=== PATIENT | female | born 1980 | race Caucasian/White ===

== ENCOUNTER 2022-11-05 14:07 | Outpatient (OUT) | payer BC, SELFPAY ==
--- NOTE | 2022-11-05 14:09 | US_ITS ---
The [address] [address] Patient Name: KATHRYN SEQUEIRA MRN: [id number] date: 1980 Sex: F Assigned Patient Location: Current Patient Location: US Accession/Order Number: [id number] Exam Date: 11/05/2022 14:09 Report Date: 11/05/2022 15:14 At the request of: RADHA MAYS Procedure: US pelvis w/ transvaginal EXAM: US pelvis w/ transvaginal HISTORY: PELVIC PAIN COMPARISON: None. TECHNIQUE: Realtime transabdominal and transvaginal imaging of the pelvis. Findings: The uterus measures 8.8 x 3.6 x 5.1 cm and is anteflexed. The parenchyma is heterogeneous. Within the posterior fundus there is a 2.1 x 1.6 x 1.8 cm intramural lesion likely representing a fibroid. The endometrium is 0.3 cm thick. No fluid within the endometrial canal. A nabothian cyst is identified. The right and left ovaries measure 3.5 x 1.7 x 3.5 and 3.6 x 2.2 x 2.8 cm. Within the left ovary there is a complex cystic lesion likely relating to an involuting ovarian cyst. Blood flow is identified to the bilateral ovaries. No adnexal mass or free pelvic fluid. IMPRESSION: 1. Fibroid uterus. 2. Probable involuting left ovarian cyst. Electronically authenticated by: ABILIO WILHELM Date: 11/05/2022 15:14
== END 2022-11-05 14:08 | disposition home or self-care (01) ==
PROVIDERS: PCP Family Medicine; Visit Provider Obstetrics & Gynecology
DX: R10.2 Pelvic and perineal pain (principal); N80.9 Endometriosis, unspecified
CPT/HCPCS: 76830; 76856

== ENCOUNTER 2022-12-04 18:51 | Outpatient (REF) | payer BC, SELFPAY ==
[2022-12-09 14:08] LABS: Age Gdln ACOG Testing Note (.); HPV Aptima Negative (Negative); IGP, Aptima HPV, rfx 16/18,45 Note (.)
== END 2022-12-04 18:52 | disposition home or self-care (01) ==
LOC: LAB 18:51
PROVIDERS: PCP Family Medicine; Visit Provider Obstetrics & Gynecology
DX: Z01.419 Encounter for gynecological examination (general) (routine) without abnormal findings (principal)
CPT/HCPCS: 87624; G0145

== ENCOUNTER 2022-12-24 08:05 | Outpatient (OUT) | payer BC, SELFPAY ==
--- NOTE | 2022-12-24 08:57 | P.GSHP_ITS ---
History of Present Illness History of Present Illness Chief complaint: pelvic pain Narrative: Patient presents for preadmission testing. Please see HPI from Dr. Lima dated 12/04/2022. Review of Systems ROS Narrative REVIEW OF SYSTEMS: Negative except as stated in HPI, ten or more systems reviewed. Constitutional: No fever , chills, weakness ENT: No sore throat or epistaxis Cardiovascular: No edema, chest pain, palpitations, or activity intolerance Respiratory: No shortness of breath, cough, or wheezing Musculoskeletal: No joint pain or swelling Genitourinary: No dysuria or hematuria Neurological: No numbness, tingling, weakness, or headache Psychiatric: No mood changes PFSH PFS Medical History (Updated 12/24/22 @ 08:33 by Alma Estrada NP) (12/21/22) Surgical History (Updated 12/24/22 @ 08:31 by Alma Estrada NP) Family History (Updated 12/24/22 @ 08:31 by Alma Estrada NP) Other Family history of DVT Family history of breast cancer Family history of diabetes mellitus Family history of heart disease Family history of hypertension Family history of myocardial infarction Family history of pulmonary embolism Family history of stroke Social History (Updated 12/24/22 @ 08:25 by Alma Estrada NP) Within the past year, how often did you have a drink containing alcohol: never Score interpretation: A score less than 3 is consistent with normal alcohol consumption. Smoking status: Current every day smoker What tobacco products do you use: cigarettes Pack-years instructions: Please document either packs per day or cigarettes per day in order for pack years to calculate correctly. If using both packs per day and cigarettes per day, please make sure that they denote the same thing. If they differ, pack- years will calculate based on packs per day. 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 Highest level of school completed/degree received: high school graduate Meds Home Medications and Allergies Home Medications Medication Instructions Recorded Confirmed Type cetirizine 10 mg tablet (Zyrtec) 10 mg PO DAILY PRN allergy symptoms 12/24/22 12/24/22 History venlafaxine 150 mg 150 mg PO QPM 12/24/22 12/24/22 History capsule,extended release 24 hr Allergies Allergy/AdvReac Type Severity Reaction Status Date / Time adhesive tape Allergy Rash Verified 12/24/22 08:21 amoxicillin Allergy Rash Verified 12/24/22 08:21 Penicillins Allergy Rash Verified 12/24/22 08:21 Exam Narrative Exam Narrative: Constitutional: Awake, alert, comfortable, well-appearing, nontoxic, interactive, vital signs as charted Head: Normocephalic, atraumatic Neck: Supple, normal appearance, normal range of motion, no meningeal signs, no lymphadenopathy Respiratory: No respiratory distress, breath sounds clear Cardiovascular: Regular rate and rhythm, strong and regular heart tones Abdomen: Nontender, normal bowel sounds, soft, no CVA tenderness Musculoskeletal: Normal gait, no swelling or edema Skin: No rashes or induration, no lesions, only visible skin inspected Neuro: No neurological deficits, normal sensation Psychiatric: Oriented ?3, normal affect Assessment and Plan Assessment and Plan (1) Dyspareunia: (2) Endometriosis: (3) Pelvic pain: Plan Diagnostic laparoscopy, possible BYRON, possible FOE, possible bilateral salpingo- oophorectomy scheduled with Dr. Lima 01/03/2023.
[2022-12-24 09:18] LABS: Anion Gap 11.8; BUN Creatinine Ratio 12.4; Calcium 8.7 mg/dL (8.5-10.1); Carbon Dioxide 28.5 mmol/L (21.0-32.0); Chloride 106 mmol/L (98-107); Estimated GFR (African America >60 (>=60); Estimated GFR (Non-African Ame >60 (>=60); Glucose 98 mg/dL (74-106); Potassium 3.3 mmol/L (3.5-5.1); Sodium 143 mmol/L (136-145)
== END 2022-12-24 08:06 | disposition home or self-care (01) ==
PROVIDERS: PCP Family Medicine; Visit Provider Obstetrics & Gynecology
DX: Z01.812 Encounter for preprocedural laboratory examination (principal); R10.2 Pelvic and perineal pain; N80.9 Endometriosis, unspecified; N94.10 Unspecified dyspareunia; I10 Essential (primary) hypertension
CPT/HCPCS: 36415; 80048; G0463

== ENCOUNTER 2023-01-03 06:20 | Day surgery (SDC) | payer BC, SELFPAY ==
[2022-12-24 08:44] VITALS: BP 157/91; PULSE 77; RESP 18; TEMP 36.2; O2SAT 98; BMI 31.2
[2023-01-03] VITALS (14 sets, daily range): BP systolic 136–201; BP diastolic 62–104; PULSE 66–88; RESP 7–23; TEMP 36.1–36.6; O2SAT 93–97; BMI 31.2
[2023-01-03 06:29] LABS: Basophils Absolute Auto 0.1 10^3/uL (0.0-0.1); Basophils Percent Auto 0.8 % (0.2-2.0); Eosinophils Absolute Auto 0.4 10^3/uL (0.0-0.7); Eosinophils Percent Auto 4.6 % (0.9-7.0); Hematocrit 39.4 % (36.0-48.0); Hemoglobin 13.2 g/dL (12.0-16.0); Immature Granulocytes Abs Auto 0.02 10^3/uL (0.00-0.03); Immature Granulocytes Pct Auto 0.3 % (0.0-0.5); Lymphocytes Percent Auto 38.7 % (20.5-60.0); Mean Corpuscular HGB Conc 33.5 g/dL (29.9-35.2); Mean Corpuscular Hemoglobin 27.6 pg (26.7-34.0); Mean Corpuscular Volume 82.4 fL (81.0-99.0); Mean Platelet Volume 9.4 fL (9.5-13.5); Monocytes Absolute Auto 0.5 10^3/uL (0.3-0.8); Monocytes Percent Auto 6.1 % (1.7-12.0); Neutrophils Absolute Auto 3.9 10^3/uL (1.4-6.5); Neutrophils Percent Auto 49.5 % (43.0-75.0); Platelet Count 343 10^3/uL (150-450); Red Blood Count 4.78 10^6/uL (4.20-5.40); Red Cell Distribution Width 13.1 % (11.0-15.0); White Blood Count 7.9 10^3/uL (4.0-11.0)
[2023-01-03 06:52] LABS: HCG Quantitative <1 mIU/mL
[2023-01-03] MEDS: LACTATED RINGER'S SOLUTION 1,000 ML 50 ML IV (06:52)
[2023-01-03] MEDS: 0.9 % SODIUM CHLORIDE 1,000 ML 125 ML IV (08:18)
[2023-01-03] MEDS: MEPERIDINE HCL/PF 25 MG/ML VIAL IVP (08:44)
--- NOTE | 2023-01-03 08:48 | P.ON_ITS ---
Brief Operative Note Date of procedure: 01/03/23 Pre-op diagnosis: pelvic pain, ho endometriosis Post-op diagnosis: same as pre-op Procedure: NAME OF PROCEDURE: [diagnostic laparoscopy with lt ovarian cystotomy ] large fundal uterine fibroid, endometriosis posterior culdesac, omental adhesions to the anterior portion of uterus PROCEDURE: The patient was taken back to the Operating Room where she was placed in dorsal lithotomy position after given general anesthesia. The patient was prepped and draped in normal sterile fashion. A sponge stick was placed into the patient's vagina. Attention was turned to the patient's abdomen, where a small umbilical incision was made. The fascia was tented using Reginald clamps and the fascia was entered sharply. Confirmation of intraabdominal placement of the 10 mm port was confirmed under direct visualization using a laparoscope. The patient's abdomen was then insufflated using CO2 gas with approximately 4 liters. A second port was placed left laterally, this was done under direct visualization with a 5 mm port. Survey of the patient's abdomen demonstrated normal liver and gallbladder. Survey of the patient's pelvic anatomy demonstrated normal appearing rt ovary and tubes as well as normal appearing uterus except for large fundal uterine fibroid. posterior culdesac endometrial implants could be noted, no evidence of any pelvic disease was seen, normal appearing pelvic cavity. All instruments were removed from the patient's abdomen. The patient's abdomen was deinsufflated of CO2 gas. The patient tolerated the procedure well. Sponge stick was removed from the patient's vagina. The patient's infraumbilical fascia was closed using #0 Vicryl on a GI needle. The patient's skin was closed laterally and infraumbilically using 4-0 Vicryl. The patient tolerated the procedure well. Sponge, lap and needle counts were correct x 2. The patient was taken to Recovery Room in stable condition. ligasure was used for lysis of omental adhesions from anterior portion of uterus Anesthesia: DARBY Surgeon: Mo Lima Morning Babysitter: Cece Rasheed Estimated blood loss (mL): 5 Pathology: none sent Condition: stable Disposition: PACU
[2023-01-03] MEDS: HYDROMORPHONE HCL 0.5 MG/0.5 ML SYRINGE IV (08:51)
--- NOTE | 2023-01-03 08:58 | PC.NURSE ---
pATIENT CONTINUES TO STATE PAIN IN [place] AT AN 8 PAIN MEDS GIVEN AT THIS TIME
--- NOTE | 2023-01-03 09:02 | PC.NURSE ---
pATIENT GIVEN DOSE DILAUDID AT THIS TIME FOR AN 8 OUT OF 10 PAIN
--- NOTE | 2023-01-03 09:09 | PC.NURSE ---
pATIENT POST PAIN MEDICATION IS SNORING AND ASLEEP VITALS ARE BETTER. ALLOWED PATIENT TO SLEEP.
--- NOTE | 2023-01-03 09:32 | PC.NURSE ---
PATIENT EATING ICECREAM AND DRINKING FLUIDS
== END 2023-01-03 09:51 | disposition home or self-care (01) ==
PROVIDERS: PCP Family Medicine; Visit Provider Obstetrics & Gynecology
PROC: (CPT 49320; principal; 2023-01-03 07:30)
DX: R10.2 Pelvic and perineal pain (principal); N94.10 Unspecified dyspareunia; I10 Essential (primary) hypertension; F17.210 Nicotine dependence, cigarettes, uncomplicated; K21.9 Gastro-esophageal reflux disease without esophagitis; Z90.49 Acquired absence of other specified parts of digestive tract; Z98.51 Tubal ligation status; N80.329 Endometriosis of the posterior cul-de-sac, unspecified depth; D25.9 Leiomyoma of uterus, unspecified; N73.6 Female pelvic peritoneal adhesions (postinfective)
CPT/HCPCS: 49320; 36415; 84702; 85025; J1170; J2704

== ENCOUNTER 2023-02-19 08:05 | Outpatient (OUT) | payer BC, SELFPAY ==
[2023-02-19 08:46] LABS: Basophils Absolute Auto 0.1 10^3/uL (0.0-0.1); Basophils Percent Auto 0.7 % (0.2-2.0); Eosinophils Absolute Auto 0.5 10^3/uL (0.0-0.7); Eosinophils Percent Auto 4.5 % (0.9-7.0); Hematocrit 33.1 % (36.0-48.0); Immature Granulocytes Abs Auto 0.04 10^3/uL (0.00-0.03); Immature Granulocytes Pct Auto 0.4 % (0.0-0.5); Lymphocytes Absolute Auto 3.8 10^3/uL (1.2-3.8); Lymphocytes Percent Auto 35.1 % (20.5-60.0); Mean Corpuscular HGB Conc 33.2 g/dL (29.9-35.2); Mean Corpuscular Hemoglobin 27.6 pg (26.7-34.0); Mean Corpuscular Volume 83.2 fL (81.0-99.0); Mean Platelet Volume 9.4 fL (9.5-13.5); Monocytes Absolute Auto 0.7 10^3/uL (0.3-0.8); Monocytes Percent Auto 6.6 % (1.7-12.0); Neutrophils Absolute Auto 5.8 10^3/uL (1.4-6.5); Neutrophils Percent Auto 52.7 % (43.0-75.0); Platelet Count 384 10^3/uL (150-450); Red Blood Count 3.98 10^6/uL (4.20-5.40); White Blood Count 10.9 10^3/uL (4.0-11.0)
[2023-02-19 09:01] LABS: INR 0.93; Partial Thromboplastin Time 24.3 sec (22.3-36.2); Prothrombin Time 9.9 sec (9.0-11.6)
[2023-02-19 09:29] LABS: Anion Gap 13.7; BUN Creatinine Ratio 11.9; Calcium 8.9 mg/dL (8.5-10.1); Chloride 105 mmol/L (98-107); Estimated GFR (African America >60 (>=60); Estimated GFR (Non-African Ame >60 (>=60); Glucose 86 mg/dL (74-106); Sodium 144 mmol/L (136-145)
[2023-02-19 09:32] LABS: Alanine Aminotransferase 20 U/L (14-59); Albumin Globulin Ratio 1.1; Albumin Level 3.3 g/dL (3.4-5.0); Alkaline Phosphatase 68 U/L (46-116); Aspartate Amino Transferase 14 U/L (15-37); Bilirubin Direct <0.1 mg/dL (0.0-0.2); Bilirubin Total 0.2 mg/dL (0.2-1.0); Globulin 2.9 g/dL; Total Protein 6.2 g/dL (6.4-8.2)
[2023-02-19 09:34] LABS: Potassium 2.7 mmol/L (3.5-5.1)
== END 2023-02-19 08:06 | disposition home or self-care (01) ==
LOC: PST 08:06
PROVIDERS: PCP Family Medicine; Visit Provider Obstetrics & Gynecology
DX: Z01.812 Encounter for preprocedural laboratory examination (principal); N80.9 Endometriosis, unspecified; D25.9 Leiomyoma of uterus, unspecified; R10.2 Pelvic and perineal pain
CPT/HCPCS: 80048; 80076; 85025; 85610; 85730; 86850; 86900; 86901

== ENCOUNTER 2023-02-22 09:02 | Outpatient (OUT) | payer BC, SELFPAY ==
[2023-02-22 09:45] LABS: Potassium 3.1 mmol/L (3.5-5.1)
== END 2023-02-22 09:03 | disposition home or self-care (01) ==
LOC: LAB 09:04
PROVIDERS: PCP Family Medicine; Visit Provider Obstetrics & Gynecology
DX: E87.6 Hypokalemia (principal)
CPT/HCPCS: 36415; 84132

== ENCOUNTER 2023-02-26 06:20 | Day surgery (SDC) | payer BC, SELFPAY ==
[2023-02-19 08:37] VITALS: BP 180/100; PULSE 77; RESP 18; TEMP 36.3; O2SAT 98; BMI 32.1
[2023-02-26] VITALS (25 sets, daily range): BP systolic 117–182; BP diastolic 76–111; PULSE 65–96; RESP 8–20; TEMP 36.4–36.7; O2SAT 92–100; BMI 32.1
[2023-02-26 06:55] LABS: HCG Quantitative <1 mIU/mL
[2023-02-26] MEDS: LACTATED RINGER'S SOLUTION 1,000 ML 50 ML IV ×2 (07:07→08:52)
[2023-02-26] MEDS: CIPROFLOXACIN IN 5 % DEXTROSE 400 MG/200 ML PIGGYBACK 200 MG IV (07:08)
[2023-02-26] MEDS: METRONIDAZOLE/SODIUM CHLORIDE 500 MG/100 ML PREMIX 100 MG IV (08:03)
--- NOTE | 2023-02-26 09:42 | PM.ONB ---
Brief Operative Note Date of procedure: 02/26/23 Pre-op diagnosis: UTERINE FIBROID, MENORRHAGIA, DYSPAREUNIA, DYSMENORRHEA Post-op diagnosis: same as pre-op Procedure: NAME OF PROCEDURE: ? Robotic assisted laparoscopic hysterectomy with cystoscopy, bilateral salpingectomy PROCEDURE:? The patient was taken back to the operating room, where she was prepped and draped in the normal sterile fashion after being placed in the dorsal lithotomy position.? Patient?s anesthesia was found to be adequate.? Surgical timeout was performed using two patient identifiers.? SCDs were on and in place.? Two grams of Ancef were given prior to the surgery.? Sterile Rico catheter was inserted.? Standard size VCare was secured to the uterine cervix and the surgeon changed gloves.? Attention then was turned to the patient's abdomen, where a supraumbilical incision was then made.? Two S retractors were used to identify the patient?s fascia.? The fascia was then tented up using Reginald clamps and the patient?s fascia was incised sharply.? Patient?s abdomen was identified and entered bluntly.? The patient had the trocar placed and a pneumoperitoneum was obtained.? Approximately 4 liters of CO2 gas was used.? The camera was then placed through the trocar.? At this time, two robot trocars were placed in the patient?s left and right side, two hand widths from the midline, and this was placed under direct visualization.? The patient?s tube on the right side was tented up and the vessel sealer was then used to come across the mesosalpinx, and this was carried down to the uterine ovarian ligament.? The vessel sealer was carried down serially to the broad ligament, to the area of the bladder flap, which was then created anteriorly, and the uterine arteries were skeletonized and sealed using the vessel sealer.? The colpotomy was made using the monopolar cautery on cut, and this was carried circumferentially, posteriorly to anteriorly, until the uterus was amputated.? The specimen was then removed intact through the vagina, without difficulty.? The vagina was then closed using two running V-Loc in a non-lock fashion.? The robot was undocked.? The abdomen was desufflated.? The skin defects were closed using 4-0 Vicryl.? Please note, the fascia was closed using 0 Vicryl.? Sponge, lap and needle counts were correct x2.? Patient was taken to recovery room in stable condition.? The patient was awakened by Anesthesia first.? Patient tolerated procedure well.??Please note left ovarian cystectomy was performed using the vessel sealer Anesthesia: DARBY Surgeon: Mo Lima Quality Assurance Technician: Hilda Crawford Estimated blood loss (mL): 150 Pathology: other (UTERUS AND TUBES) Condition: stable Disposition: PACU
[2023-02-26] MEDS: HYDROMORPHONE HCL 0.5 MG/0.5 ML SYRINGE IV ×2 (10:26→10:51)
[2023-02-26] MEDS: LACTATED RINGER'S SOLUTION 1,000 ML 125 ML IV (10:28)
[2023-02-26] MEDS: OXYCODONE HCL/ACETAMINOPHEN 5MG/325MG 2 TAB PO (13:26)
[2023-02-26 15:45] LABS: Basophils Percent Auto 0.2 % (0.2-2.0); Eosinophils Percent Auto 0.1 % (0.9-7.0); Hematocrit 38.5 % (36.0-48.0); Hemoglobin 12.8 g/dL (12.0-16.0); Immature Granulocytes Pct Auto 0.5 % (0.0-0.5); Lymphocytes Absolute Auto 0.7 10^3/uL (1.2-3.8); Lymphocytes Percent Auto 3.8 % (20.5-60.0); Mean Corpuscular HGB Conc 33.2 g/dL (29.9-35.2); Mean Corpuscular Hemoglobin 27.6 pg (26.7-34.0); Mean Corpuscular Volume 83.2 fL (81.0-99.0); Mean Platelet Volume 9.3 fL (9.5-13.5); Monocytes Absolute Auto 0.6 10^3/uL (0.3-0.8); Monocytes Percent Auto 3.3 % (1.7-12.0); Neutrophils Absolute Auto 17.7 10^3/uL (1.4-6.5); Neutrophils Percent Auto 92.1 % (43.0-75.0); Platelet Count 369 10^3/uL (150-450); Red Blood Count 4.63 10^6/uL (4.20-5.40); Red Cell Distribution Width 12.9 % (11.0-15.0); White Blood Count 19.2 10^3/uL (4.0-11.0)
== END 2023-02-26 16:20 | disposition home or self-care (01) ==
LOC: SURGOUT 09:46 → MS 11:31
PROVIDERS: PCP Family Medicine; Visit Provider Obstetrics & Gynecology
PROC: (CPT 58571; principal; 2023-02-26 07:30)
DX: N80.9 Endometriosis, unspecified (principal); D25.9 Leiomyoma of uterus, unspecified; R10.2 Pelvic and perineal pain; N72 Inflammatory disease of cervix uteri; N80.03 Adenomyosis of the uterus; N92.0 Excessive and frequent menstruation with regular cycle; N94.10 Unspecified dyspareunia; N94.6 Dysmenorrhea, unspecified; F32.A Depression, unspecified; K21.9 Gastro-esophageal reflux disease without esophagitis; Z87.442 Personal history of urinary calculi; F17.210 Nicotine dependence, cigarettes, uncomplicated; I10 Essential (primary) hypertension
CPT/HCPCS: 58571; 36415; 84702; 85025; 88307; 94667; J1170; J2704

== ENCOUNTER 2023-03-19 11:08 | Outpatient (OUT) | payer BC, SELFPAY ==
[2023-03-19 12:33] LABS: Anion Gap 12.6; BUN Creatinine Ratio 12.2; Calcium 8.2 mg/dL (8.5-10.1); Chloride 103 mmol/L (98-107); Estimated GFR (African America >60 (>=60); Estimated GFR (Non-African Ame >60 (>=60); Glucose 120 mg/dL (74-106); Potassium 3.6 mmol/L (3.5-5.1); Sodium 138 mmol/L (136-145)
--- OUTSIDE RECORDS SUMMARY | 2023-04-29 14:03 | XMS_ITS | CCD ---
Author Name Unknown Address [address] [place] [address] Organization [facility] Care Team Providers [facility] Name Role Phone Dioni Bacon Primary Care Provider Unavailable Primary Care Provider ELLIS Edwards Attending Unavailable Dioni Bacon DO Primary Care Provider DIONI BACON Primary Care Unavailable BERTHA TOMLIN Attending Unavailable JORDI, DIONI Walker Primary Care Unavailable BERTHA TOMLIN Attending Unavailable JORDI, DIONI Walker Primary Care Unavailable Billy VASQUEZ~[id number] ISAAC Prestonin alejandro Unavailable HUMZA BANG Attending Unavailable JORDI, Doini Walker Attending Unavailable JORDI, Dioni S Attending Unavailable Jamia Brown Attending Unavailable JORDI, Dioni Walker Referring Unavailable Jamia Brown Attending Unavailable JORDI, Dioni S Attending Unavailable JORDI, Dioni S Admitting Unavailable JORDI, Dioni S Attending Unavailable JORDI, Dioni S Admitting Unavailable JORDI, Dioni S Referring Unavailable JORDI, Dioni S Attending Unavailable JORDI, Dioni S Admitting Unavailable Jamia Brown Attending Unavailable RHIANNA BRAXTON Attending Unavailable JORDI, Dioni S Attending Unavailable JORDI, Dioni S Attending Unavailable JORDI, Dioni S Attending Unavailable JORDI, Dioni S Attending Unavailable JORDI, Dioni S Attending Unavailable JORDI, Dioni S Attending Unavailable CLIFF CARMONA Attending Unavailable Allergies Allergy Classification Reported Allergen(s) Allergy Type Date of Onset Reaction(s) Facility Penicillins (antibiotic) (2 sources) Penicillins Drug Allergy 2 [facility] (11 sources) Penicillins; Translations: [PENICILLINS] Propensity to adverse reactions to drug 2 [facility] [place] (3 sources) Penicillins Propensity to adverse reactions to drug 2 Rash, Hives [facility] Work Phone: (2 sources) Silicone adhesive tape Propensity to adverse reactions to drug 3 Dermatitis [facility] (1 source) amLODIPine; Translations: [amLODIPine] Drug Allergy [facility] (1 source) Lisinopril; Translations: [lisinopril] Drug Allergy [facility] (1 source) Penicillin; Translations: [penicillin] Drug Allergy [facility] (1 source) sasonal allergies; Translations: [sasonal allergies] Propensity to adverse reactions (disorder) [facility] Medications Current Medications Medication Drug Class(es) Dates Sig (Normalized) Sig (Original) acetaminophen 300 mg / butalbital 50 mg / caffeine 40 mg oral capsule (3 sources) Barbiturate, Central Nervous System Stimulant, Methylxanthine Start: 1 take 1 capsule by mouth every four hours as needed for headache enirzgdwmc-BMFB-l affeine (FIORICET) 50-300-40 MG CAPS per capsule Take 1 capsule by mouth every 4 hours as needed for Headaches or Migraine 6 capsule 0 10/04/2020 Active ALPRAZolam 0.5 mg oral tablet (1 source) Benzodiazepine Start: 1 ALPRAZolam 0.5 MG tablet TAKE 1 TABLET BY MOUTH 2 (TWO) hours prior to procedure and TAKE 1 TABLET ONE-HALF hour prior to procedure as needed for anxiety 0 09/01/2020 Active baclofen 10 mg oral tablet (2 sources) gamma-Aminobutyric Acid-ergic Agonist take 0.5 tablet by mouth twice daily baclofen (LIORESAL) 10 MG tablet Take 0.5 tablets by mouth 2 times daily 0 Active cephalexin 500 mg oral capsule (3 sources) Cephalosporin Antibacterial Start: 1 End: 1 take 1 capsule by mouth four times daily cephALEXin (KEFLEX) 500 MG capsule Take 1 capsule by mouth 4 times daily 28 capsule 0 08/20/2020 10/04/2020 Discontinued (LIST CLEANUP) ciprofloxacin 500 mg oral tablet (1 source) Quinolone Antimicrobial ciprofloxacin (Cipro) 500 MG tablet ergocalciferol 1.25 mg oral capsule (2 sources) Provitamin D2 Compound Vitamin D, Ergocalciferol, 18884 units CAPS Take 5,000 Units by mouth daily 0 Active famotidine 20 mg oral tablet (1 source) Histamine-2 Receptor Antagonist Start: 3 take 1 tablet by mouth twice daily famotidine (PEPCID) 20 MG tablet Take 1 tablet by mouth 2 times daily 14 tablet 0 12/22/2022 Active ferrous sulfate 325 mg oral tablet (2 sources) take 1 tablet by mouth every other day ferrous sulfate (IRON 325) 325 (65 Fe) MG tablet Take 1 tablet by mouth every other day 0 Active gabapentin 100 mg oral capsule (3 sources) Anti-epileptic Agent End: 1 take 2 capsules by mouth once daily gabapentin (NEURONTIN) 100 MG capsule Take 200 mg by mouth nightly. 0 10/04/2020 Discontinued (LIST CLEANUP) hydroCHLOROthiazide 12.5 mg / olmesartan medoxomil 20 mg oral tablet (3 sources) Thiazide Diuretic, Angiotensin 2 Receptor Christiano take 1 tablet by mouth once daily olmesartan-hydroC HLOROthiazide (BENICAR HCT) 20-12.5 MG per tablet Take 1 tablet by mouth daily 0 Active Comment on above: Take 1 tablet by anni th once daily. hydrOXYzine pamoate 25 mg oral capsule (1 source) Antihistamine Start: 08-21-2020 take 1 capsule by mouth four times daily as needed hydrOXYzine pamoate 25 MG capsule TAKE 1 CAPSULE BY MOUTH FOUR TIMES DAILY NEEDED FOR ITCHING 0 08/21/2020 Active ibuprofen 400 mg oral tablet (15 sources) Nonsteroidal Anti-inflammatory Drug take 2 tablets by mouth every six hours as needed for pain ibuprofen (ADVIL;MOTRIN) 400 MG tablet Take 2 tablets by mouth every 6 hours as needed for Pain 0 Active ibuprofen 800 mg tablet Take 800 mg by mouth as needed. 0 Active Comment on above: Take 800 mg by mouth as needed. lisdexamfetamine dimesylate 60 mg oral capsule (3 sources) Central Nervous System Stimulant take 1 capsule by mouth once daily Lisdexamfetamine Dimesylate (VYVANSE) 60 MG CAPS Take 60 mg by mouth daily. Max Daily Amount: 60 mg 0 Active Comment on above: Take 60 mg by mouth. lisinopril 10 mg oral tablet (1 source) Angiotensin Converting Enzyme Inhibitor lisinopril 10 MG tablet metFORMIN hydrochloride 500 mg oral tablet (5 sources) Biguanide take 1 tablet by mouth once daily at breakfast metFORMIN (GLUCOPHAGE) 500 MG tablet Take 500 mg by mouth daily (with breakfast) 0 Active NONFORMULARY (13 sources) NONFORMULARY otc med from work [id number]. Mag/ caffiene 0 Active omeprazole 20 mg delayed release oral capsule (14 sources) Proton Pump Inhibitor take 1 capsule by mouth once daily omeprazole (PRILOSEC) 20 MG delayed release capsule Take 20 mg by mouth daily 0 Active ondansetron 4 mg disintegrating oral tablet (12 sources) Serotonin-3 Receptor Antagonist Start: 017 End: 021 take 1 tablet by mouth every eight hours as needed for nausea ondansetron (ZOFRAN ODT) 4 MG disintegrating tablet Take 1 tablet by mouth every 8 hours as needed for Nausea or Vomiting 10 tablet 0 01/17/2019 10/04/2020 Discontinued (LIST CLEANUP) microencapsulated potassium chloride 20 meq extended release oral tablet (3 sources) Start: 023 take 1 tablet by mouth once daily potassium chloride (KLOR-CON M) 20 MEQ extended release tablet Take 1 tablet by mouth daily 30 tablet 0 09/18/2022 Active Start: 09-17-2022 End: 09-17-2022 potassium chloride (KLOR-CON ) extended release tablet 40 mEq rizatriptan 5 mg oral tablet (19 sources) Serotonin-1b and Serotonin-1d Receptor Agonist Start: 07-11-2020 rizatriptan (MAXALT) 5 MG tablet 1 tablet 0 07/11/2020 Active rizatriptan (MAX ALT) 10 MG tablet Take 1 tablet by mouth as needed 0 Active Comment on above: Take 10 mg by mouth as needed. May repeat in 2 hours if needed rOPINIRole 2 mg oral tablet (2 sources) Nonergot Dopamine Agonist take 1 tablet by mouth three times daily rOPINIRole (REQUIP) 2 MG tablet Take 1 tablet by mouth 3 times daily 0 Active Semaglutide (OZEMPIC, 0.25 OR 0.5 MG/DOSE, SC) (1 source) Semaglutide (OZEMPIC, 0.25 OR 0.5 MG/DOSE, SC) Inject under the skin. 0 Active sulfamethoxazole 800 mg / trimethoprim 160 mg oral tablet (1 source) Dihydrofolate Reductase Inhibitor Antibacterial, Sulfonamide Antimicrobial Start: sulfamethoxazole-t rimethoprim 800-160 MG per tablet thyroid (fpc) 60 mg oral tablet (4 sources) Start: take 1 tablet by mouth once daily thyroid (ARMOUR) 60 MG tablet Take 60 mg by mouth daily 0 07/11/2020 Active 24 hr venlafaxine 75 mg extended release oral capsule (8 sources) Serotonin and Norepinephrine Reuptake Inhibitor Start: take 1 capsule by mouth once daily venlafaxine 75 MG Cap SR 24HR capsule XR Take 75 mg by mouth daily. 0 07/27/2020 Active Start: 07-11-2020 take 1 capsule by mo uth once daily venlafaxine 37.5 MG Cap SR 24HR capsule XR Take 37.5 mg by mouth daily. 0 07/11/2020 Active take 1 capsule by mo uth once daily venlafaxine (EFFEXOR XR) 150 MG extended release capsule Take 1 capsule by mouth daily 0 Active Comment on above: Take 1 capsule by mo uth once daily. Completed/Discontinued Medications Medication Drug Class(es) Dates Sig (Normalized) Sig (Original) cloNIDine hydrochloride 0.1 mg oral tablet (1 source) Central alpha-2 Adrenergic Agonist Start: 09-17-2022 End: 09-17-2022 cloNIDine (CATAPRES) tablet 0.2 mg 1 ml dexamethasone phosphate 10 mg/ml injection (2 sources) Corticosteroid Start: 10-04-2020 End: 10-04-2020 dexamethasone (PF) (DECADRON) injection 10 mg Start: 03-17-2019 End: 03-17-2019 dexamethasone (DECADRON) inj ection 10 mg 1 ml diphenhydrAMINE hydrochloride 50 mg/ml cartridge (5 sources) Histamine-1 Receptor Antagonist Start: 10-04-2020 End: 10-04-2020 diphenhydrAMINE (BENADRYL) injection 12.5 mg Start: 08-20-2020 diphenhydrAMIN E (BENADRYL) tablet 25 mg Start: 08-20-2020 End: 08-23-2020 take 1 capsule by mouth every six hours as needed diphenhydrAMINE (BENADRYL) 25 MG capsule Take 1 capsule by mouth every 6 hours as needed for Itching 12 capsule 0 08/20/2020 08/23/2020 Active Start: 03-17-2019 End: 03-17-2019 diphenhydrAMINE (BENADRYL) i njection 25 mg Start: 01-17-2019 End: 01-17-2019 diphenhydrAMINE (BENADRYL) i njection 25 mg 1 ml ketorolac tromethamine 30 mg/ml cartridge (3 sources) Nonsteroidal Anti-inflammatory Drug, Cyclooxygenase Inhibitor Start: 10-04-2020 End: 10-04-2020 ketorolac (TORADOL) injection 30 mg Start: 03-17-2019 End: 03-17-2019 ketorolac (TORADOL) injectio n 30 mg Start: 01-17-2019 End: 01-17-2019 ketorolac (TORADOL) injectio n 15 mg 2 ml metoclopramide 5 mg/ml prefilled syringe (3 sources) Dopamine-2 Receptor Antagonist Start: 10-04-2020 End: 10-04-2020 metoclopramide (REGLAN) injection 10 mg Start: 03-17-2019 End: 03-17-2019 metoclopramide (REGLAN) inje ction 10 mg Start: 01-17-2019 End: 01-17-2019 metoclopramide (REGLAN) inje ction 10 mg Naproxen (1 source) Nonsteroidal Anti-inflammatory Drug NAPROXEN SODIUM (ALEVE ORAL) Take by mouth as needed. 0 Active Comment on above: Take by mouth as nee ded. 2 ml prochlorperazine 5 mg/ml injection (2 sources) Phenothiazine Start: 10-04-2020 End: 10-04-2020 prochlorperazine (COMPAZINE) injection 10 mg Start: 03-17-2019 End: 03-17-2019 prochlorperazine (COMPAZINE) injection 10 mg 50 ml sodium chloride 9 mg/m l injection (2 sources) Start: 12-22-2022 End: 12-22-2022 sodium chloride 0.9 % bolus 1,000 mL Start: 01-17-2019 End: 01-17-2019 0.9 % sodium chloride bolus Problems Problem Classification Problem Date Documented Da te Episodic/Chronic Abdominal pain (3 sources) Epigastric pain; Translations: [Epigastric pain] Onset: 12-22-2022 Episodic Essential hypertension (2 sources) Essential hypertension; Translations: [Essential (primary) hypertension] Onset: 09-18-2022 Chronic Headache; including migraine (3 sources) Migraine without aura, not refractory ; Translations: [Migraine] Chronic Nausea and vomiting (3 sources) Nausea, vomiting and diarrhea; Translations: [Nausea and vomiting] Onset: 12-22-2022 Episodic Other connective tissue disease (2 sources) Panniculitis; Translations: [Panniculitis, unspecified] Onset: 09-13-2020 Episodic Other connective tissue disease (1 source) Pain in bilateral legs; Translations: [Pain in right leg] Episodic Other connective tissue disease (1 source) Impingement syndrome of right shoulder region; Translations: [Impingement syndrome of shoulder, right] Other injuries and conditions due to external causes (1 source) Insect bite - wound; Translations: [Multiple insect bites] Episodic Other nervous system disorders (1 source) Numbness of lower limb ; Translations: [Anesthesia of skin] Episodic Other non-traumatic joint disorders (3 sources) Shoulder pain; Translations: [Right shoulder pain, unspecified chronicity] Episodic Other non-traumatic joint disorders (1 source) Hip pain; Translations: [Pain in right hip] Episodic Other nutritional; endocrine; and metabolic disorders (2 sources) Localized adiposity; Translations: [Localized adiposity] Onset: 09-13-2020 Chronic Other skin disorders (2 sources) Atrophic condition of skin; Translations: [Atrophic disorder of skin, unspecified] Onset: 09-13-2020 Episodic Residual codes; unclassified (1 source) History of arthroscopic procedure on shoulder; Translations: [History of arthroscopy of right shoulder] Episodic Skin and subcutaneous tissue infections (1 source) Cellulitis; Translations: [Cellulitis of other specified site] Episodic Results Test Name Value Interpretation Reference Range Facil ity Formson 04-16-2023 Forms [id number] FF [facility] Screenson 04-15-2023 Screens [id number] FF [facility] Ambulatory Visit Summaryon 1 06-15-2022 Ambulatory Visit Summary AUBREE SEQUEIRA :1980 Visit Date:04/14/2023 Ambulatory Visit Instructions Your Diagnosis Bladder mass Kidney stone Tests Performed Urnls Dip Stick Auto w/o Microscopy POC 38905 Your Care Team Attending Physician - Kevin MARTINEZ, Jamia Steiner Primary Care Physician - Dioni BACON DO This Is Your Medications List Contact prescribing physician if questions or concerns APAP/ASA/caffeine (Excedrin Migraine) Misc Prescription (Magnesium Chloride 64) albuterol (Albuterol (Eqv-ProAir HFA) 90 mcg/inh inhalation aerosol) aripiprazole (aripiprazole 2 mg Tab) baclofen (baclofen 5 mg oral tablet) cetirizine (cetirizine 10 mg Tab) cholecalciferol (Vitamin D3 5000 intl units oral capsule) famotidine (Pepcid 40 mg Tab) ferrous sulfate (ferrous sulfate 325 mg oral enteric coated tablet) galcanezumab (Emgality Prefilled Pen 120 mg/mL subcutaneous solution) hydrochlorothiazide-olmesartan (hydrochlorothiazide-olmesartan 12.5 mg-20 mg oral tablet) lisdexamfetamine (Vyvanse 60 mg oral capsule) olmesartan (Benicar 20 mg Tab) ondansetron (Zofran ODT 4 mg Tab-Dis) potassium chloride (potassium chloride 20 mEq ER Tab) predniSONE (predniSONE 10 mg Tab) rizatriptan (rizatriptan 5 mg oral tablet) ropinirole (ropinirole 4 mg oral tablet) thyroid desiccated ([place] Thyroid 30 mg Tab) venlafaxine (venlafaxine 150 mg Cap-ER) Procedures Performed Arthroscopy of shoulder (11/22/2019), Fasciotomy of foot (01/16/2017), Plantar fasciotomy (01/16/2017), diagnostic laparoscopy with fulguration of endometriosis (02/17/2013), Endometrial ablation (2009), Cholecystectomy (2004), Caesarean section (1999), Tubal ligation (1999), Appendectomy (1997), Tonsillectomy (1992), Colonoscopy, EGD, Hysterectomy, lithotripsy of kindney, stone basket for kidney stone. Discharge Vitals Height 168 cm Height 66 in Weight 88.6 kg Weight 194.92 lb BMI 31.39 What to do next You Need to Schedule the Following Appointments Follow Up with Kevin MARTINEZ, MUNDO Galloway, [place] When: Where: Medications What How Much When Why Instructions Unchanged albuterol (Albuterol (Eqv-ProAir HFA) 90 mcg/ inh inhalation aerosol) 2 Puffs Inhalation Every 6 hours Contact prescribing physician if questions or concerns Unchanged APAP/ ASA/ caffeine (Excedrin Migraine) 2 Tablets By Mouth Every 6 hours as needed for Migraine headache Contact prescribing physician if questions or concerns Unchanged aripiprazole (aripiprazole 2 mg Tab) 2 Milligram By Mouth Every day Contact prescribing physician if questions or concerns Unchanged baclofen (baclofen 5 mg oral tablet) 1 Tablets By Mouth 2 times a day Contact prescribing physician if questions or concerns Unchanged cetirizine (cetirizine 10 mg Tab) 1 Tablets By Mouth Every day Contact prescribing physician if questions or concerns Unchanged cholecalciferol (Vitamin D3 5000 intl units oral capsule) 1 Capsules By Mouth Every day Contact prescribing physician if questions or concerns Unchanged famotidine (Pepcid 40 mg Tab) 1 Tablets By Mouth Once a day (at bedtime) Contact prescribing physician if questions or concerns Unchanged ferrous sulfate (ferrous sulfate 325 mg oral enteric coated tablet) 1 Tablets By Mouth Every day Contact prescribing physician if questions or concerns Unchanged galcanezumab (Emgality Prefilled Pen 120 mg/ mL subcutaneous solution) 120 Milligram Subcutaneous Once a month [id number] Contact prescribing physician if questions or concerns Unchanged hydrochlorothiazide-olmesartan (hydrochlorothiazide-olmesartan 12.5 mg-20 mg oral tablet) 1 Tablets By Mouth Every day Contact prescribing physician if questions or concerns Unchanged lisdexamfetamine (Vyvanse 60 mg oral capsule) 1 Capsules By Mouth Once a day (in the morning) ADD (attention deficit disorder) without hyperactivity 30 days. DNF until due in December 2022 Contact prescribing physician if questions or concerns Unchanged Misc Prescription (Magnesium Chloride 64) 1 tab By Mouth At bedtime Contact prescribing physician if questions or concerns Unchanged olmesartan (Benicar 20 mg Tab) By Mouth Every day Contact prescribing physician if questions or concerns Unchanged ondansetron (Zofran ODT 4 mg Tab-Dis) 1 Tablets By Mouth Every 8 hours as needed for Nausea/Vomiting Contact prescribing physician if questions or concerns Unchanged potassium chloride (potassium chloride 20 mEq ER Tab) By Mouth 2 times a day Contact prescribing physician if questions or concerns Unchanged predniSONE (predniSONE 10 mg Tab) 1 Dose Separtor By Mouth As Directed Take 5 tabs by mouth daily x3 days, 4 daily x3 days, 3 daily x3 days, 2 daily x3 days, then 1 tab daily x3 days. Contact prescribing physician if questions or concerns Unchanged rizatriptan (rizatriptan 5 mg oral tablet) 1 Tablets By Mouth Every day as needed for for migraine headache may repeat dose every 2 hours up to a maximum of 3 doses in 24 hours Contact prescribing phy (more content not included)... Normal [facility] Pathology Noteon 04-14-2023 Pathology Note [id number] Normal [facility] Patient Educationon 04-14-20 Patient Education Nutrition BMI for Adults What is BMI? Body mass index (BMI) is a number that is calculated from a person's weight and height. BMI can help estimate how much of a person's weight is composed of fat. BMI does not measure body fat directly. Rather, it is an alternative to procedures that directly measure body fat, which can be difficult and expensive. BMI can help identify people who may be at higher risk for certain medical problems. What are BMI measurements used for? BMI is used as a screening tool to identify possible weight problems. It helps determine whether a person is obese, overweight, a healthy weight, or underweight. BMI is useful for: ? Identifying a weight problem that may be related to a medical condition or may increase the risk for medical problems. ? Promoting changes, such as changes in diet and exercise, to help reach a healthy weight. BMI screening can be repeated to see if these changes are working. How is BMI calculated? BMI involves measuring your weight in relation to your height. Both height and weight are measured, and the BMI is calculated from those numbers. This can be done either in [place] or metric measurements. Note that charts and online BMI calculators are available to help you find your BMI quickly and easily without having to do these calculations yourself. To calculate your BMI in [place] measurements: 1. Measure your weight in pounds (lb). 2. Multiply the number of pounds by 703. ? For example, for a person who weighs 180 lb, multiply that number by 703, which equals 126,540. 3. Measure your height in inches. Then multiply that number by itself to get a measurement called inches squared. ? For example, for a person who is 70 inches tall, the inches squared measurement is 70 inches x 70 inches, which equals 4,900 inches squared. 4. Divide the total from step 2 (number of lb x 703) by the total from step 3 (inches squared): 126,540 ? 4,900 = 25.8. This is your BMI. To calculate your BMI in metric measurements: 1. Measure your weight in kilograms (kg). 2. Measure your height in meters (m). Then multiply that number by itself to get a measurement called meters squared. ? For example, for a person who is 1.75 m tall, the meters squared measurement is 1.75 m x 1.75 m, which is equal to 3.1 meters squared. 3. Divide the number of kilograms (your weight) by the meters squared number. In this example: 70 ? 3.1 = 22.6. This is your BMI. What do the results mean? BMI charts are used to identify whether you are underweight, normal weight, overweight, or obese. The following guidelines will be used: ? Underweight: BMI less than 18.5. ? Normal weight: BMI between 18.5 and 24.9. ? Overweight: BMI between 25 and 29.9. ? Obese: BMI of 30 or above. Keep these notes in mind: ? Weight includes both fat and muscle, so someone with a muscular build, such as an athlete, may have a BMI that is higher than 24.9. In cases like these, BMI is not an accurate measure of body fat. ? To determine if excess body fat is the cause of a BMI of 25 or higher, further assessments may need to be done by a health care provider. ? BMI is usually interpreted in the same way for men and women. Where to find more information For more information about BMI, including tools to quickly calculate your BMI, go to these websites: ? Centers for Disease Control and Prevention: www.cdc.gov ? [place] [employer]: www.heart.org ? National Heart, Lung, and Blood Zap: www.nhlbi.nih.gov Summary ? Body mass index (BMI) is a number that is calculated from a person's weight and height. ? BMI may help estimate how much of a person's weight is composed of fat. BMI can help identify those who may be at higher risk for certain medical problems. ? BMI can be measured using [place] measurements or metric measurements. ? BMI charts are used to identify whether you are underweight, normal weight, overweight, or obese. This information is not intended to replace advice given to you by your health care provider. Make sure you discuss any questions you have with your health care provider. Document Revised: 01/19/2020 Document Reviewed: 11/26/2019 [employer] Patient Education ? 2022 [employer]. Tot[employer] [facility] Urology Office/Clinic Noteon 04-14-2023 Urology Office/Clinic Note Chief Complai nt 2 week F/U HPI Staff 42 year old female here for 2 week follow up to cysto-TURBT 03/26/23. Previous DX: bladder mass, kidney stones, smoker and H/O kidney stones. Dysuria: yes, Pt. states once the bladder is empty and when she is getting the urge she will have pain Incomplete bladder emptying: yes, PVR 0mL Hematuria: UA shows moderate Frequency: about every 1-2 hours Urgency: yes Nocturia: 0-1x's Stream: strong stream Post void dripping: no Wearing pads/ Depends: no Urge incontinence: occasionally Stress incontinence: occasionally Incontinence without Sensory Awareness: no Abdominal pain: yes Flank pain: no History of Present Illness Tests reviewed: reviewed UA and path. I have reviewed the previous health record information and history for this patient from Dr. Brown. I have reviewed and verified the staff HPI to be accurate for this encounter. There have been no associated fever, chills, flank pain, or blood in the urine. Denies any urinary infections since last encounter. Review of Systems PHQ Score Initial Depression Screen Score: 0 SCORE ROS - Provider Constitutional: denies weight loss, denies hot flashes. Eyes: denies eye problems. Gastrointestinal: denies nausea, denies vomiting. Cardiovascular: denies chest pain or angina. Integumentary: no dryness Musculoskeletal: denies musculoskeletal symptoms. ENMT: denies otolaryngeal symptoms. Respiratory: no shortness of breath. Heme/Lymph: denies easy bleeding tendency, denies easy bruising tendency. Psychiatric: no confusion, no anxiety. Genitourinary: See HPI. Physical Exam Vitals & Measurements HT: 66 in HT: 168 cm WT: 88.6 kg WT: 194.92 lb BMI: 31.39 General Appearance: alert , no acute distress, well nourished, well developed female. Genitourinary: bladder nonpalpable, no flank pain. Assessment/Plan 42-year-old female who recently underwent a robotic hysterectomy by Dr. Lima and was found to have a bladder tumor on Intra-Op cystoscopy. Following up to recent cysto, TURBT. Portions of this record may have been created with voice recognition artificial intelligence software, specifically [employer], [employer] and or [employer]. Substitutions may have occurred due to the inherent limitations of voice recognition and artificial intelligence software. 1. Bladder mass (N32.89: Other specified disorders of bladder) Found during her hysterectomy done on 02/26/23 at [facility] - Path negative CT AP w/ IV con 02/02/23 - no acute findings, no hydronephrosis (report only, no mention of delayed imaging) Current tobacco user, over 25 years. 1 PPD. Urine cytology shows rare, atypical urothelial cells. S/p cysto, TURBT (< 2 cm) , BL RPG 03/26/23 - Path reveals focal atypical urothelial cells which are suspicious for a high-grade lesion, however there is a limited amount of the specimen showing the atypia, precluding further dx. 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 Did take Oxybutynin TID x 3 days along with AZO. Pt removed catheter at home by herself, reports no issues. PVR today 0 cc. Discussed unclear, nonspecific pathology. Will send for second opinion for further evaluation/clarity. -Path to be sent for second opinion -Cysto with urine cytology/FISH within 3 months for surveillance pending second opinion pathology diagnosis -Repeat TURBT if second opinion path shows high-grade The risks and benefits for cystoscopy have been discussed. The risks include bleeding, infection, and irritation of the bladder and urinary channel, among others. The patient, after being informed of procedural details and after questions have been answered, wishes to proceed. Full informed consent has been obtained. Will order Local anesthesia. Ordered: [id number] Measure Post Void residual urine and/or bladder capacity by US- non-imaging Urology Procedure Order 2. OAB (overactive bladder) (N32.81: Overactive bladder) Pt had a cysto/UD done in the past previously by [facility] or [facility]. Denies having urinary issues at that time or any improvement afterwards. BBS 14 (13) Main issue is urgency and frequency. Discussed risk and benefits of management options including behavioral modifications and medications. Patient already has issues with constipation would like to try medication with minimal side effects. Discussed beta 3 agonists. -Gemtesa 75mg qd, phone number provided for coverage, call if cost prohibitive, discussed SEs -Bowel regimen, timed voids 3. Kidney stone (N20.0: Calculus of kidney) CT AP w/Con 02/02/23 - 2 mm Rt lower pole stone, no hydro Given small size, will continue surveillance and educated on dietary modifications. -Increase fluid intake, add citrate to diet, dietary modifications -Follow-up imaging in 1 year Orders: vibegron, 75 mg = 1 tab(s), Oral, Daily, # 90 tab(s), Refills(s) 3, Pharmacy: [facility] (more content not included)... [facility] Comment on above: Result Comment: Elec tronically Signed By: Kevin MARTINEZ, Jamia Steiner\.br\Date and Time Signed: 04/14/23 18:44 EST\.br\Electronically Co-Signed By: Emeli Sullivan\.br\Date and Time Co-Signed: 04/14/23 14:47 EST\.br\Electronically Co-Signed By: Emeli Sulilvan\.br\Date and Time Co-Signed: 04/14/23 14:49 EST Auth for Release of Medical Recordson 04-10-2023 Auth for Release of Medical Records [id number]#1.00TIFF [facility] Formson 04-09-2023 Forms [id number]#1.00TI FF [facility] Operative Reporton Operative Report [id number]#1.00TIFF Normal [facility] Lab Reportson 03-20-2023 Lab Reports [id number]#1.00T IFF Normal [facility] Lab Reportson 03-18-2023 Lab Reports [id number]#1.00T IFF Normal [facility] Pathology Noteon 03-18-2023 Pathology Note [id number]. 00TIFF Normal [facility] RAD - CT Reporton 03-18-2023 RAD - CT Report [id number]#1.00TIFF Normal [facility] RAD - CT Report [id number]#1.00TIFF Normal [facility] Formson 03-17-2023 Forms [id number]#1.00TI FF Normal [facility] Physician Referralon 023 Physician Referral [id number]#1.00TIFF Normal [facility] RAD - MISCon 03-17-2023 RAD - MISC [id number]#1.00TI FF Normal [facility] Screenson 03-17-2023 Screens [id number]#1.00TI FF Normal [facility] Ambulatory Visit Summaryon 1 05-14-2022 Ambulatory Visit Summary LISA SEQUEIRAСЕРГЕЙ Ochoa :1980 Visit Date:03/14/2023 Ambulatory Visit Instructions Your Diagnosis Bladder mass Kidney stone Smoker History of kidney stones Tests Performed Urnls Dip Stick Auto w/o Microscopy POC 74092 Your Care Team Attending Physician - Jamia Brown MD Primary Care Physician - Dioni BACON DO Referring Physician - Dioni BACON DO This Is Your Medications List Contact prescribing physician if questions or concerns APAP/ASA/caffeine (Excedrin Migraine) Misc Prescription (Magnesium Chloride 64) albuterol (Albuterol (Eqv-ProAir HFA) 90 mcg/inh inhalation aerosol) aripiprazole (aripiprazole 2 mg Tab) baclofen (baclofen 5 mg oral tablet) cetirizine (cetirizine 10 mg Tab) cholecalciferol (Vitamin D3 5000 intl units oral capsule) famotidine (Pepcid 40 mg Tab) ferrous sulfate (ferrous sulfate 325 mg oral enteric coated tablet) galcanezumab (Emgality Prefilled Pen 120 mg/mL subcutaneous solution) hydrochlorothiazide-olmesartan (hydrochlorothiazide-olmesartan 12.5 mg-20 mg oral tablet) lisdexamfetamine (Vyvanse 60 mg oral capsule) olmesartan (Benicar 20 mg Tab) ondansetron (Zofran ODT 4 mg Tab-Dis) potassium chloride (potassium chloride 20 mEq ER Tab) predniSONE (predniSONE 10 mg Tab) rizatriptan (rizatriptan 5 mg oral tablet) ropinirole (ropinirole 4 mg oral tablet) thyroid desiccated ([place] Thyroid 30 mg Tab) venlafaxine (venlafaxine 150 mg Cap-ER) Procedures Performed Arthroscopy of shoulder (11/22/2019), Fasciotomy of foot (01/16/2017), Plantar fasciotomy (01/16/2017), diagnostic laparoscopy with fulguration of endometriosis (02/17/2013), Endometrial ablation (2009), Cholecystectomy (2004), Caesarean section (1999), Tubal ligation (1999), Appendectomy (1997), Tonsillectomy (1992), Colonoscopy, EGD, Hysterectomy, lithotripsy of kindney, stone basket for kidney stone. Discharge Vitals Blood Pressure 124/84 Height 168 cm Height 66 in Weight 88.6 kg Weight 194.92 lb BMI 31.39 What to do next You Need to Schedule the Following Appointments Follow Up with Kevin MARTINEZ, Jamia Steiner, MUNDO, URO When: Comments: Sched Cysto/TURBT/BL Retrograde Pyelogram Cytology day of surgery Where: Medications What How Much When Why Instructions Unchanged albuterol (Albuterol (Eqv-ProAir HFA) 90 mcg/ inh inhalation aerosol) 2 Puffs Inhalation Every 6 hours Contact prescribing physician if questions or concerns Unchanged APAP/ ASA/ caffeine (Excedrin Migraine) 2 Tablets By Mouth Every 6 hours as needed for Migraine headache Contact prescribing physician if questions or concerns Unchanged aripiprazole (aripiprazole 2 mg Tab) 2 Milligram By Mouth Every day Contact prescribing physician if questions or concerns Unchanged baclofen (baclofen 5 mg oral tablet) 1 Tablets By Mouth 2 times a day Contact prescribing physician if questions or concerns Unchanged cetirizine (cetirizine 10 mg Tab) 1 Tablets By Mouth Every day Contact prescribing physician if questions or concerns Unchanged cholecalciferol (Vitamin D3 5000 intl units oral capsule) 1 Capsules By Mouth Every day Contact prescribing physician if questions or concerns Unchanged famotidine (Pepcid 40 mg Tab) 1 Tablets By Mouth Once a day (at bedtime) Contact prescribing physician if questions or concerns Unchanged ferrous sulfate (ferrous sulfate 325 mg oral enteric coated tablet) 1 Tablets By Mouth Every day Contact prescribing physician if questions or concerns Unchanged galcanezumab (Emgality Prefilled Pen 120 mg/ mL subcutaneous solution) 120 Milligram Subcutaneous Once a month [id number] Contact prescribing physician if questions or concerns Unchanged hydrochlorothiazide-olmesartan (hydrochlorothiazide-olmesartan 12.5 mg-20 mg oral tablet) 1 Tablets By Mouth Every day Contact prescribing physician if questions or concerns Unchanged lisdexamfetamine (Vyvanse 60 mg oral capsule) 1 Capsules By Mouth Once a day (in the morning) ADD (attention deficit disorder) without hyperactivity 30 days. DNF until due in December 2022 Contact prescribing physician if questions or concerns Unchanged Misc Prescription (Magnesium Chloride 64) 1 tab By Mouth At bedtime Contact prescribing physician if questions or concerns Unchanged olmesartan (Benicar 20 mg Tab) By Mouth Every day Contact prescribing physician if questions or concerns Unchanged ondansetron (Zofran ODT 4 mg Tab-Dis) 1 Tablets By Mouth Every 8 hours as needed for Nausea/Vomiting Contact prescribing physician if questions or concerns Unchanged potassium chloride (potassium chloride 20 mEq ER Tab) By Mouth 2 times a day Contact prescribing physician if questions or concerns Unchanged predniSONE (predniSONE 10 mg Tab) 1 Dose Separtor By Mouth As Directed Take 5 tabs by mouth daily x3 days, 4 daily x3 days, 3 daily x3 days, 2 daily x3 days, then 1 tab daily x3 days. Contact prescribing physician if questions or concerns Unchanged rizatriptan (more content not included)... Normal [facility] Patient Educationon 03-14-20 Patient Education Pulmonary Medicine Steps to Quit Smoking Smoking tobacco is the leading cause of preventable . It can affect almost every organ in the body. Smoking puts you and those around you at risk for developing many serious chronic diseases. Quitting smoking can be very challenging. Do not get discouraged if you are not successful the first time. Some people need to make many attempts to quit before they achieve long-term success. Do your best to stick to your quit plan, and talk with your health care provider if you have any questions or concerns. How do I get ready to quit? When you decide to quit smoking, create a plan to help you succeed. Before you quit: ? Pick a date to quit. Set a date within the next 2 weeks to give you time to prepare. ? Write down the reasons why you are quitting. Keep this list in places where you will see it often. ? Tell your family, friends, and co-workers that you are quitting. Support from people you are close to can make quitting easier. ? Talk with your health care provider about your options for quitting smoking. ? Find out what treatment options are covered by your health insurance. ? Identify people, places, things, and activities that make you want to smoke (triggers). Avoid them. What first steps can I take to quit smoking? ? Throw away all cigarettes at home, at work, and in your car. ? Throw away smoking accessories, such as ashtrays and lighters. ? Clean your car. Make sure to empty the ashtray. ? Clean your home, including curtains and carpets. What strategies can I use to quit smoking? Talk with your health care provider about combining strategies, such as taking medicines while you are also receiving in-person counseling. Using these two strategies together makes you more likely to succeed in quitting than if you used either strategy on its own. If you are or , talk with your health care provider about finding counseling or other support strategies to quit smoking. Do not take medicine to help you quit smoking unless your health care provider tells you to. Quit right away ? Quit smoking completely, instead of gradually reducing how much you smoke over a period of time. Stopping smoking right away may be more successful than gradually quitting. ? Attend in-person counseling to help you build problem-solving skills. You are more likely to succeed in quitting if you attend counseling sessions regularly. Even short sessions of 10 minutes can be effective. Take medicine You may take medicines to help you quit smoking. Some medicines require a prescription. You can also purchase [id number]-[id number] medicines. Medicines may have nicotine in them to replace the nicotine in cigarettes. Medicines may: ? Help to stop cravings. ? Help to relieve withdrawal symptoms. Your health care provider may recommend: ? Nicotine patches, gum, or lozenges. ? Nicotine inhalers or sprays. ? Non-nicotine medicine that you take by mouth. Find resources Find resources and support systems that can help you quit smoking and remain smoke-free after you quit. These resources are most helpful when you use them often. They include: ? Online chats with a counselor. ? Telephone quitlines. ? Printed self-help materials. ? Support groups or group counseling. ? Text messaging programs. ? Mobile phone apps or applications. Use apps that can help you stick to your quit plan by providing reminders, tips, and encouragement. Examples of free services include Quit Guide from the CDC and smokefree.gov What can I do to make it easier to quit? ? Reach out to your family and friends for support and encouragement. Call telephone quitlines, such as 5-491-JJQC-NOW, reach out to support groups, or work with a counselor for support. ? Ask people who smoke to avoid smoking around you. ? Avoid places that trigger you to smoke, such as bars, parties, or smoke-break areas at work. ? Spend time with people who do not smoke. ? Lessen the stress in your life. Stress can be a smoking trigger for some people. To lessen stress, try: ? Exercising regularly. ? Doing deep-breathing exercises. ? Doing yoga. ? Meditating. What benefits will I see if I quit smoking? Over time, you should start to see positive results, such as: ? Improved sense of smell and taste. ? Decreased coughing and sore throat. ? Slower heart rate. ? Lower blood pressure. ? Clearer and healthier skin. ? The ability to breathe more easily. ? Fewer sick days. Summary ? Quitting smoking can be very challenging. Do not get discouraged if you are not successful the first time. Some people need to make many attempts to quit before they achieve long-term success. ? When you decide to quit smoking, create a plan to help you succeed. ? Quit smoking right away, not slowly over a period of time. ? Find resources and support systems that can help you quit smoki (more content not included)... Normal 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 HPI Staff Was here 20 years ago with Nikhil Here for a bladder mass that was found during her hysterectomy done on 02/26/23 at [facility] She brought imaging pictures with her CT Abdomen pelvis W IV contrast done- 02/02/23 Dysuria: _irritation since the hysterectomy Incomplete bladder emptying: denies Hematuria: denies visible blood Frequency: every 1-2 hours Urgency: denies Nocturia: denies Stream: yes hesitation, normal stream Leaking: _denies Post void dripping: _denies Wearing pads/ Depends: _denies Urge incontinence: _denies Stress incontinence: yes Incontinence without Sensory Awareness: _denies Abdominal pain: _yes from hysterectomy Flank pain: right side off and on. almost a month ago it started Sexual complaints: denies History of Present Illness Tests reviewed: reviewed UA and External Records. I have reviewed the previous health record information and history for this patient from External Provider. I have reviewed and verified the staff HPI to be accurate for this encounter. There have been no associated fever, chills, flank pain, or blood in the urine. Denies any urinary infections since last encounter. Review of Systems PHQ Score Initial Depression Screen Score: 0 ROS - Provider Constitutional: denies weight loss, denies hot flashes. Eyes: denies eye problems. Gastrointestinal: denies nausea, denies vomiting. Cardiovascular: denies chest pain or angina. Integumentary: no dryness Musculoskeletal: denies musculoskeletal symptoms. ENMT: denies otolaryngeal symptoms. Respiratory: no shortness of breath. Heme/Lymph: denies easy bleeding tendency, denies easy bruising tendency. Psychiatric: no confusion, no anxiety. Genitourinary: See HPI. Physical Exam Vitals & Measurements BP: 124/84 HT: 66 in HT: 168 cm WT: 88.6 kg WT: 194.92 lb BMI: 31.39 General Appearance: alert , no acute distress, well nourished, well developed female. Head: normocephalic . Eyes: normal orbit and globe. ENMT: normal examination of external ears. Chest: symmetric chest rise, respirations non labored . Cardiovascular: regular rate and rhythm. Abdomen: soft, non distended, no tenderness Genitourinary: bladder nonpalpable, no flank tenderness. Skin: warm, dry, no bruising. Psychiatric: cooperative, affect appropriate for age, normal judgement, euthymic mood. Assessment/Plan 42-year-old female who recently underwent a robotic hysterectomy by Dr. Lima and was found to have a bladder tumor on Intra-Op cystoscopy. BBS 13 Pt had a cysto/UD done in the past previously by [facility] or [facility]. Denies having urinary issues at that time or any improvement afterwards. Present with mother today 1. Bladder mass (N32.89: Other specified disorders of bladder) Found during her hysterectomy done on 02/26/23 at [facility] - Path negative CT AP w/ IV con 02/02/23 - no acute findings, no hydronephrosis (report only, no mention of delayed imaging) Current tobacco user, over 25 years. Discussed the findings from the picture the pt brought with her, appears to be a small papillary pedunculated tumor on the right lateral inferior wall. Discussed completion work-up for bladder mass including TURBT, urine cytology and upper tract imaging. Risk and benefits discussed. -Will send urine for Cytology day of surgery. -Will schedule Cysto/TURBT/BL Retrograde Pyelogram. The procedure risks, benefits, details, and treatment alternatives have been discussed with the patient. These include bleeding -- sometimes to the point of hemorrhaging, infection, risk of bladder perforation, recurrence of bladder tumor in 60-70% of patients, need for indwelling catheter for a variable amount of time, as well as the rare risk of needing an open operation to repair the bladder, among others. Additional therapy as well as follow-up bladder evaluation will most likely be required. Full informed consent has been obtained. Will order General anesthesia. 2. Kidney stone (N20.0: Calculus of kidney) CT AP w/Con 02/02/23 - 2mm Rt lower pole stone, no hydro Discussed management options including surveillance versus intervention. Given small size, will continue surveillance and educated on dietary modifications. -Increase fluid intake, add citrate to diet, dietary modifications as discussed -Follow-up imaging in 1 year 3. Smoker (F17.200: Nicotine dependence, unspecified, uncomplicated) 1 PPD, has been smoking for about 25 yrs. Discussed the risk of bladder cancer and cigarette smoking. -Smoking cessation strongly recommended 4. History of kidney stones (Z87.442: Personal history of urinary calculi) Pt states that she has had kidney stones in the past. Has required surgery in the past -See #2 I spent 60 minutes today with the patient: reviewing tests in preparation to see and discuss them with the patient, obtaining and reviewing external separately obtained history, documenting clinical information in (more content not included)... Normal [facility] Comment on above: Result Comment: Elec tronically Signed By: Kevin MARTINEZ, Jamia Steiner\.br\Date and Time Signed: 03/14/23 16:51 EDT\.br\Electronically Co-Signed By: Veronica Chinchilla\.br\Date and Time Co-Signed: 03/14/23 15:41 EDT RAD - CT Reporton 02-03-2023 RAD - CT Report [id number]:127 Normal [facility] CBC with Diffon 02-02-2023 Abs. Basophil 0.03 k/uL Normal 0.00-0.20 [facility] Comment on above: Performed By: #### C P, CDP #### [facility] [address] [place] [address] Technical Sales Representative: Claudio Hodge MD Abs.Imm.Granulocyte 0.04 k/uL Normal 0.00-0.30 [facility] Comment on above: Performed By: #### C P, CDP #### [facility] [address] [place] [address] Technical Sales Representative: Claudio Hodge MD Abs.Neutrophil (Seg) 5.66 k/uL Normal 2.5-7.0 [facility] Comment on above: Performed By: #### C P, CDP #### [facility] [address] [place], [place] [id number] Technical Sales Representative: Claudio Hodge MD Basophils/100 WBC (Bld) 0 % Normal 0-2 [facility] Comment on above: Performed By: #### C P, CDP #### [facility] [address] [place], [place] [id number] Technical Sales Representative: Claudio Hodge MD Eosinophils (Bld) [#/Vol] 0.47 10*3/uL High 0.00-0.4 0 [facility] Comment on above: Performed By: #### C P, CDP #### [facility] [address] [place] [address] Technical Sales Representative: Claudio Hodge MD Eosinophils/100 WBC (Bld) 4 % Normal 0-5 [facility] Comment on above: Performed By: #### C P, CDP #### [facility] [address] [place] [id number] Technical Sales Representative: Claudio Hodge MD Erythrocyte distribution wid th (RBC) [Ratio] 12.8 % Normal 12.1-15.2 [facility] Comment on above: Performed By: #### C P, CDP #### [facility] [address] [place] [address] Technical Sales Representative: Claudio Hodge MD Hematocrit (Bld) [Volume fraction] 37.4 % Normal 3 6.0-46.0 [facility] Comment on above: Performed By: #### C P, CDP #### [facility] [address] [place] [address] Technical Sales Representative: Claudio Hodge MD Hemoglobin (Bld) [Mass/Vol] 12.9 g/dL Normal 12.0-16. 0 [facility] Comment on above: Performed By: #### C P, CDP #### [facility] [address] [place] [address] Technical Sales Representative: Claudio Hodge MD Immature granulocytes/100 WBC (Bld) 0 % Normal 0-5 [facility] Comment on above: Performed By: #### C P, CDP #### [facility] [address] [place] [address] Technical Sales Representative: Claudio Hodge MD Lymphocytes (Bld) [#/Vol] 4.92 10*3/uL High 1.00-4.8 0 [facility] Comment on above: Performed By: #### C P, CDP #### [facility] [address] [place] [address] Technical Sales Representative: Claudio Hodge MD Lymphocytes/100 WBC (Bld) 42 % High 15-40 [facility] Comment on above: Performed By: #### C P, CDP #### [facility] [address] [place] [address] Technical Sales Representative: Claudio Hodge MD MCH (RBC) [Entitic mass] 27.3 pg Normal 26.0-34.0 [facility] Comment on above: Performed By: #### C P, CDP #### [facility] [address] [place] [address] Technical Sales Representative: Claudio Hodge MD MCHC (RBC) [Mass/Vol] 34.5 g/dL Normal 31.0-37.0 [facility] Comment on above: Performed By: #### C P, CDP #### [facility] [address] [place] [address] Technical Sales Representative: Claudio Hodge MD MCV (RBC) [Entitic vol] 79.1 fL Low 80.0-100.0 [facility] Comment on above: Performed By: #### C P, CDP #### [facility] [address] [place] [address] Technical Sales Representative: Claudio Hodge MD Monocytes (Bld) [#/Vol] 0.74 10*3/uL Normal 0.00-1.00 [facility] Comment on above: Performed By: #### C P, CDP #### [facility] [address] [place], [place] [phone] Technical Sales Representative: Claudio Hodge MD Monocytes/100 WBC (Bld) 6 % Normal 4-8 [facility] Comment on above: Performed By: #### C P, CDP #### [facility] [address] [place], [place] [phone] Technical Sales Representative: Claudio Hodge MD Neutrophil (Seg) 48 % Normal 47-75 [facility] Comment on above: Performed By: #### C P, CDP #### [facility] [address] [place], [place] [phone] Technical Sales Representative: Claudio Hodge MD Platelet mean volume (Bld) [ Entitic vol] 9.4 fL Normal 6.0-12.0 [facility] Comment on above: Performed By: #### C P, CDP #### [facility] [address] [place] [address] [phone] Technical Sales Representative: Claudio Hodge MD Platelets (Bld) [#/Vol] 309 10*3/uL Normal 140-450 [facility] Comment on above: Performed By: #### C P, CDP #### [facility] [address] [place], [place] [phone] Technical Sales Representative: Claudio Hodge MD RBC (Bld) [#/Vol] 4.73 10*6/uL Normal 4.00-5.20 [facility] Comment on above: Performed By: #### C P, CDP #### [facility] [address] [place], [place] [phone] Technical Sales Representative: Claudio Hodge MD WBC (Bld) [#/Vol] 11.9 10*3/uL High 3.5-11.0 [facility] Comment on above: Performed By: #### C P, CDP #### [facility] [address] [place] [address] Technical Sales Representative: Claudio Hodge MD CT ABDOMEN PELVIS W IV CONTR Jeff 02-02-2023 CT ABDOMEN PELVIS W IV CONTRAST EXAMINATION: CT ABDOMEN PELVIS W IV CONTRAST, 02/02/2023 8:04 AM EDT HISTORY: Right flank pain x24 hours, history of kidney stones COMPARISON: None. TECHNIQUE: CT scan of the abdomen and pelvis was performed with IV contrast. CT dose reduction technique was used, including Automated Exposure Control. FINDINGS: LOWER CHEST: Normal. ABDOMEN: Liver: Left hepatic lobe 2.1 x 1.4 cm low-density lesion. Similar compared to 12/03/2016. Subcentimeter low density left hepatic lobe lesion and 1.6 x 1.1 cm low-density right hepatic lobe lesion, not seen previously. These findings are nonspecific and favored to be benign in the absence of malignancy history. Bile Ducts: Normal caliber. Gallbladder: No calcified gallstones. Normal caliber wall. Pancreas: Normal. Spleen: Normal. Adrenals: Normal. Kidneys: Symmetric enhancement without hydronephrosis. Right lower pole nonobstructing 2 mm calculus. PELVIS: Reproductive Organs: Probable low density dominant right ovarian follicle measuring up to 1.7 cm. Prior tubal ligation. Right adnexal ligation clip is displaced into the left hemipelvis. Ureters: Normal caliber. Bladder: Normal. OTHER ABDOMEN AND PELVIS: Bowel: No bowel obstruction. Nonvisualization of the appendix. Reported prior appendectomy. Diverticulosis of the sigmoid colon. Peritoneum: Trace free fluid in the pelvis. No free intraperitoneal air. Vessels: Normal. Lymph Nodes: No enlarged lymph nodes. Abdominal Wall: Normal. Bones: No destructive lesions. IMPRESSION: No acute findings to account for patient's symptoms. No obstructive uropathy. Small nonobstructing right renal calculus. Prior tubal ligation. Right adnexal clip is displaced into the left hemipelvis. Recommend gynecologic follow-up. Prior cholecystectomy and appendectomy. Interpreted by: Yvette Corrales DO Signed by: Yvette Corrales DO 02/02/23 [facility] 2022 Potassium [Moles/Vol] 3.1 mmol/L Low 3.7-5.3 [facility] Comment on above: Performed By: #### C P, CDP #### [facility] [address] [place], [place] [phone] Technical Sales Representative: Claudio Hodge MD Anion gap [Moles/Vol] 10 mmol/L Normal 9-17 [facility] Comment on above: Performed By: #### C P, CDP #### [facility] [address] [place], [place] [phone] Technical Sales Representative: Claudio Hodge MD Chloride [Moles/Vol] 106 mmol/L Normal 98-107 [facility] Comment on above: Performed By: #### C P, CDP #### [facility] [address] [place], [place] [phone] Technical Sales Representative: Claudio Hogde MD CO2 [Moles/Vol] 22 mmol/L Normal 20-[address] [facility] Comment on above: Performed By: #### C P, CDP #### [facility] [address] [place], [place] [phone] Technical Sales Representative: Claudio Hodge MD Sodium [Moles/Vol] 138 mmol/L Normal 135-144 [facility] Comment on above: Performed By: #### C P, CDP #### [facility] [address] [place], [place] [phone] Technical Sales Representative: Claudio Hodge MD Albumin [Mass/Vol] 3.8 g/dL Normal 3.5-5.2 [facility] Comment on above: Performed By: #### C P, CDP #### [facility] [address] [place], [place] [phone] Technical Sales Representative: Claudio Hodge MD Alkaline Phos 59 U/L Normal 35-104 [facility] Comment on above: Performed By: #### C P, CDP #### [facility] [address] [place], [place] [phone] Technical Sales Representative: Claudio Hodge MD ALT [Catalytic activity/Vol] 18 U/L Normal 5-33 [facility] Comment on above: Performed By: #### C P, CDP #### [facility] [address] [place], [place] [phone] Technical Sales Representative: Claudio Hodge MD AST [Catalytic activity/Vol] 18 U/L Normal <32 [facility] Comment on above: Performed By: #### C P, CDP #### [facility] [address] [place], [place] [phone] Technical Sales Representative: Claudio Hodge MD Bilirubin [Mass/Vol] 0.1 mg/dL Low 0.3-1.2 [facility] Comment on above: Performed By: #### C P, CDP #### [facility] [address] [place], [place] [phone] Technical Sales Representative: Claudio Hodge MD Calcium [Mass/Vol] 8.6 mg/dL Normal 8.6-10.4 [facility] Comment on above: Performed By: #### C P, CDP #### [facility] [address] [place], [place] [phone] Technical Sales Representative: Claudio Hodge MD Creatinine [Mass/Vol] 0.6 mg/dL Normal 0.5-0.9 [facility] Comment on above: Performed By: #### C P, CDP #### [facility] [address] [place], [place] [phone] Technical Sales Representative: Claudio Hodge MD GFR/1.73 sq M.predicted chase g non-blacks MDRD (S/P/Bld) [Vol rate/Area] mL/min/{1.73_m2} Normal >60 [facility] Comment on above: Result Comment: These results are not intended for use in patients <18 years of age. eGFR results are calculated without a race factor using the 2020 CKD-EPI equation. Careful clinical correlation is recommended, particularly when comparing to results calculated using previous equations. The CKD-EPI equation is less accurate in patients with extremes of muscle mass, extra-renal metabolism of creatine, excessive creatine ingestion, or following therapy that affects renal tubular secretion. Performed By: #### C P, CDP #### [facility] [address] [place] [address] Technical Sales Representative: Claudio Hodge MD Glucose [Mass/Vol] 112 mg/dL High 70-99 [facility] Comment on above: Performed By: #### C P, CDP #### [facility] [address] [place] [address] Technical Sales Representative: Claudio Hodge MD Protein [Mass/Vol] 6.0 g/dL Low 6.4-8.3 [facility] Comment on above: Performed By: #### C P, CDP #### [facility] [address] [place] [address] Technical Sales Representative: Claudio Hodge MD Urea nitrogen [Mass/Vol] 7 mg/dL Normal 6-20 [facility] Comment on above: Performed By: #### C P, CDP #### [facility] [address] [place] [address] Technical Sales Representative: Claudio Hodge MD HCG, ,Urineon 02-02 Beta HCG ( test) Ql (U) Negative Normal NEG [facility] Comment on above: Performed By: #### U HCG, UA #### [facility] [address] [place] [address] Technical Sales Representative: Claudio Hodge MD Urinalysis, Routineon 2022 Bilirubin, SemiQt,Ur Negative Normal NEG [facility] Comment on above: Performed By: #### U HCG, UA #### [facility] [address] [place] [address] Technical Sales Representative: Claudio Hodge MD Blood, Urine Negative Normal NEG [facility] Comment on above: Performed By: #### U HCG, UA #### [facility] [address] [place], [place] [phone] Technical Sales Representative: Claudio Hodge MD Clarity (U) Clear Normal CLEAR [facility] Comment on above: Performed By: #### U HCG, UA #### [facility] [address] [place], [place] [phone] Technical Sales Representative: Claudio Hodge MD Color (U) Yellow Normal YEL [facility] Comment on above: Performed By: #### U HCG, UA #### [facility] [address] [place], [place] [phone] Technical Sales Representative: Claudio Hodge MD Comment Normal [facility] Comment on above: Performed By: #### U HCG, UA #### [facility] [address] [place], [place] [phone] Technical Sales Representative: Claudio Hodge MD Glucose Ql (U) Negative Normal NEG [facility] Comment on above: Performed By: #### U HCG, UA #### [facility] [address] [place], [place] [phone] Technical Sales Representative: Claudio Hodge MD Ketones Ql (U) Negative Normal NEG [facility] Comment on above: Performed By: #### U HCG, UA #### [facility] [address] [place], [place] [phone] Technical Sales Representative: Claudio Hodge MD Leukocyte esterase Test strip Ql (U) Negative Normal NEG [facility] Comment on above: Performed By: #### U HCG, UA #### [facility] [address] [place], [place] [phone] Technical Sales Representative: Claudio Hodge MD Nitrite,Ur Negative Normal NEG [facility] Comment on above: Performed By: #### U HCG, UA #### [facility] [address] [place], [place] [phone] Technical Sales Representative: Claudio Hodge MD PH,Ur 6.5 Normal 5.0-8.0 [facility] Comment on above: Performed By: #### U HCG, UA #### [facility] [address] [place], [place] [phone] Technical Sales Representative: Claudio Hodge MD Protein Ql (U) Negative Normal NEG [facility] Comment on above: Performed By: #### U HCG, UA #### [facility] [address] [place], [place] [phone] Technical Sales Representative: Claudio Hodge MD Spec. Dexter,Ur 1.005 Normal 1.005-1.030 [facility] Comment on above: Performed By: #### U HCG, UA #### [facility] [address] [place], [place] [phone] Technical Sales Representative: Claudio Hodge MD Urobilinogen,Ur Normal Normal 0.0-1.[address] [facility] Comment on above: Performed By: #### U HCG, UA #### [facility] [address] [place], [place] [phone] Technical Sales Representative: Claudio Hodge MD CBC with Auto Differentialon 12-22-2022 Basophils (Bld) [#/Vol] [facility] Basophils/100 WBC (Bld) 0 - 2 % [facility] Eosinophils (Bld) [#/Vol] 0.46 10*3/uL High [facility] Eosinophils/100 WBC (Bld) 4 % 0 - 5 % [facility] Erythrocyte distribution width (RBC) [Ratio] 13.9 % 12.1 - 15.2 % [facility] Hematocrit (Bld) [Volume fraction] 41.1 % 36 - 46 % [facility] Hemoglobin (Bld) [Mass/Vol] 13.9 g/dL 12.0 - 16.0 g/dL [facility] Interpretation and review of laboratory results Abnormal [facility] Lymphocytes/100 WBC (Bld) 41 % High 15 - 40 % [facility] Lymphocytes/100 WBC (Bld) 4.76 % [facility] MCH (RBC) [Entitic mass] 28.7 pg 26 - 34 pg [facility] MCHC (RBC) [Mass/Vol] 33.9 g/dL 31 - 37 g/dL [facility] MCV (RBC) [Entitic vol] 84.7 fL 80 - 100 fL [facility] Monocytes/100 WBC (Bld) 7 % 4 - 8 % [facility] Monocytes/100 WBC (Bld) 0.81 % [facility] Morphology Praneeth (Bld) [Interp] Manual Differential Performed [facility] Neutrophils/100 WBC (Bld) 48 % 47 - 75 % [facility] Platelets (Bld) [#/Vol] 405 10*3/uL [facility] RBC (Bld) [#/Vol] 4.86 10*6/uL 4.0 - 5.2 m/uL [facility] Segmented neutrophils/100 WBC (Bld) 5.57 % [facility] WBC other (Bld) [#/Vol] 11.6 High [facility] CBC with Diffon 12-22-2022 Abs. Basophil Normal 0.0-0.2 [facility] Comment on above: Performed By: #### L ADALBERTO HORVATH, CP #### [facility] [address] [place] [phone] Technical Sales Representative: Claudio Hodge MD Abs.Neutrophil (Seg) 5.57 k/uL Normal 2.5-7.0 [facility] Comment on above: Performed By: #### L ADALBERTO HORVATH, CP #### [facility] [address] [place] [address] Technical Sales Representative: Claudio Hodge MD Basophil Normal 0-2 [facility] Comment on above: Performed By: #### L ADALBERTO HORVATH, CP #### [facility] [address] [place] [address] Technical Sales Representative: Claudio Hodge MD Eosinophils (Bld) [#/Vol] 0.46 10*3/uL High 0.0-0.4 [facility] Comment on above: Performed By: #### L IP, CDP, CP #### [facility] [address] [place] [phone] Technical Sales Representative: Claudio Hodge MD Eosinophils/100 WBC (Bld) 4 % Normal 0-5 [facility] Comment on above: Performed By: #### L IP, CDP, CP #### [facility] [address] [place] [address] Technical Sales Representative: Claudio Hodge MD Lymphocytes (Bld) [#/Vol] 4.76 10*3/uL Normal 1.0-4.8 [facility] Comment on above: Performed By: #### L IP, CDP, CP #### [facility] [address] [place] [address] Technical Sales Representative: Claudio Hodge MD Lymphocytes/100 WBC (Bld) 41 % High 15-40 [facility] Comment on above: Performed By: #### L IP, CDP, CP #### [facility] [address] [place] [phone] Technical Sales Representative: Claudio Hodge MD Monocytes (Bld) [#/Vol] 0.81 10*3/uL Normal 0.0-1.0 [facility] Comment on above: Performed By: #### L IP, CDP, CP #### [facility] [address] [place] [address] Technical Sales Representative: Claudio Hodge MD Monocytes/100 WBC (Bld) 7 % Normal 4-8 [facility] Comment on above: Performed By: #### L IP, CDP, CP #### [facility] [address] [place], [place] [phone] Technical Sales Representative: Claudio Hodge MD Morphology Praneeth (Bld) [Interp] Manual Differential Performed Normal [facility] Comment on above: Performed By: #### L IP, CDP, CP #### [facility] [address] [place], [place] [phone] Technical Sales Representative: Claudio Hodge MD Neutrophil (Seg) 48 % Normal 47-75 [facility] Comment on above: Performed By: #### L IP, CDP, CP #### [facility] [address] [place], [place] [phone] Technical Sales Representative: Claudio Hodge MD Erythrocyte distribution wid th (RBC) [Ratio] 13.9 % Normal 12.1-15.2 [facility] Comment on above: Performed By: #### L YULIET CDP, CP #### [facility] [address] [place], [place] [phone] Technical Sales Representative: Claudio Hodge MD Hematocrit (Bld) [Volume fraction] 41.1 % Normal 3 6-46 [facility] Comment on above: Performed By: #### L YULIET CDP, CP #### [facility] [address] [place], [place] [phone] Technical Sales Representative: Claudio Hodge MD Hemoglobin (Bld) [Mass/Vol] 13.9 g/dL Normal 12.0-16. 0 [facility] Comment on above: Performed By: #### L IP, CDP, CP #### [facility] [address] [place], [place] [phone] Technical Sales Representative: Claudio Hodge MD MCH (RBC) [Entitic mass] 28.7 pg Normal 26-34 [facility] Comment on above: Performed By: #### L IP, CDP, CP #### [facility] [address] [place] [address] Technical Sales Representative: Claudio Hodge MD MCHC (RBC) [Mass/Vol] 33.9 g/dL Normal 31-37 [facility] Comment on above: Performed By: #### L IP, CDP, CP #### [facility] [address] [place] [address] Technical Sales Representative: Claudio Hodge MD MCV (RBC) [Entitic vol] 84.7 fL Normal 80-100 [facility] Comment on above: Performed By: #### L IP, CDP, CP #### [facility] [address] [place] [address] Technical Sales Representative: Claudio Hodge MD Platelets (Bld) [#/Vol] 405 10*3/uL Normal 140-450 [facility] Comment on above: Performed By: #### L IP, CDP, CP #### [facility] [address] [place] [address] Technical Sales Representative: Claudio Hodge MD RBC (Bld) [#/Vol] 4.86 10*6/uL Normal 4.0-5.2 [facility] Comment on above: Performed By: #### L IP, CDP, CP #### [facility] [address] [place], [place] [phone] ([phone] Technical Sales Representative: Claudio Hodge MD WBC (Bld) [#/Vol] 11.6 10*3/uL High 3.5-11.0 [facility] Comment on above: Performed By: #### L IP, CDP, CP #### [facility] [address] [place], [place] [phone] ([phone] Technical Sales Representative: Claudio Hodge MD Comp Metabolic Profon 2022 Albumin [Mass/Vol] 4.2 g/dL Normal 3.5-5.2 [facility] Comment on above: Performed By: #### L IP, CDP, CP #### [facility] [address] [place] [address] Technical Sales Representative: Claudio Hodge MD Alkaline Phos 69 U/L Normal 35-104 [facility] Comment on above: Performed By: #### L IP CDP, CP #### [facility] [address] [place], [place] [phone] Technical Sales Representative: Claudio Hodge MD ALT [Catalytic activity/Vol] 19 U/L Normal 5-33 [facility] Comment on above: Performed By: #### L IP CDP, CP #### [facility] [address] [place], [place] [phone] Technical Sales Representative: Claudio Hodge MD Anion gap [Moles/Vol] 12 mmol/L Normal 9-17 [facility] Comment on above: Performed By: #### L ADALBERTO HORVATH, CP #### [facility] [address] [place], [place] 1637190 Technical Sales Representative: Claudio Hodge MD AST [Catalytic activity/Vol] 17 U/L Normal <32 [facility] Comment on above: Performed By: #### L YULIET CDP, CP #### [facility] [address] [place], [place] [phone] Technical Sales Representative: Claudio Hodge MD Bilirubin [Mass/Vol] 0.4 mg/dL Normal 0.3-1.2 [facility] Comment on above: Performed By: #### L YULIET CDP, CP #### [facility] [address] [place], [place] [phone] Technical Sales Representative: Claudio Hodge MD BUN/CRE Ratio 20 Normal 9-20 [facility] Comment on above: Performed By: #### L IP, CDP, CP #### [facility] [address] [place], [place] [phone] Technical Sales Representative: Claudio Hodge MD Calcium [Mass/Vol] 9.8 mg/dL Normal 8.6-10.4 [facility] Comment on above: Performed By: #### L IP, CDP, CP #### [facility] [address] [place], [place] [phone] Technical Sales Representative: Claudio Hodge MD Chloride [Moles/Vol] 102 mmol/L Normal 98-107 [facility] Comment on above: Performed By: #### L IP, CDP, CP #### [facility] [address] [place], [place] [phone] Technical Sales Representative: Claudio Hodge MD CO2 [Moles/Vol] 22 mmol/L Normal 20-[address] [facility] Comment on above: Performed By: #### L IP CDP, CP #### [facility] [address] [place], [place] [phone] Technical Sales Representative: Claudio Hodge MD Creatinine [Mass/Vol] 0.7 mg/dL Normal 0.5-0.9 [facility] Comment on above: Performed By: #### L YULIET CDP, CP #### [facility] [address] [place], [place] [phone] Technical Sales Representative: Claudio Hodge MD GFR/1.73 sq M.predicted chase g non-blacks MDRD (S/P/Bld) [Vol rate/Area] mL/min/{1.73_m2} Normal >60 [facility] Comment on above: Result Comment: These results are not intended for use in patients <18 years of age. eGFR results are calculated without a race factor using the 2020 CKD-EPI equation. Careful clinical correlation is recommended, particularly when comparing to results calculated using previous equations. The CKD-EPI equation is less accurate in patients with extremes of muscle mass, extra-renal metabolism of creatine, excessive creatine ingestion, or following therapy that affects renal tubular secretion. Performed By: #### L IP, CDP, CP #### [facility] [address] [place], [place] [phone] Technical Sales Representative: Claudio Hodge MD Glucose [Mass/Vol] 113 mg/dL High 70-99 [facility] Comment on above: Performed By: #### L ADALBERTO HORVATH, CP #### [facility] [address] [place], [place] [phone] Technical Sales Representative: Claudio Hodge MD Potassium [Moles/Vol] 3.3 mmol/L Low 3.7-5.3 [facility] Comment on above: Performed By: #### L ADALBERTO HORVATH, CP #### [facility] [address] [place], [place] [phone] Technical Sales Representative: Claudio Hodge MD Protein [Mass/Vol] 7.2 g/dL Normal 6.4-8.3 [facility] Comment on above: Performed By: #### L ADALBERTO HORVATH, CP #### [facility] [address] [place], [place] [phone] Technical Sales Representative: Claudio Hodge MD Sodium [Moles/Vol] 136 mmol/L Normal 135-144 [facility] Comment on above: Performed By: #### L ADALBERTO HORVATH, CP #### [facility] [address] [place], [place] [id number] Technical Sales Representative: Claudio Hodge MD Urea nitrogen [Mass/Vol] 14 mg/dL Normal 6-20 [facility] Comment on above: Performed By: #### L ADALBERTO HORVATH, CP #### [facility] [address] [place] [address] Technical Sales Representative: Claudio Hodge MD Comprehensive Metabolic Pane [facility] 12-22-2022 Albumin [Mass/Vol] 4.2 g/dL 3.5 - 5.2 g/dL [facility] ALP [Catalytic activity/Vol] 69 U/L 35 - 10 4 U/L [facility] ALT [Catalytic activity/Vol] 19 U/L 5 - 33 U/L [facility] Anion gap [Moles/Vol] 12 mmol/L 9 - 17 mmol/L [facility] AST [Catalytic activity/Vol] 17 U/L NINF - 32 U/L [facility] Bilirubin [Mass/Vol] 0.4 mg/dL 0.3 - 1.2 mg/dL [facility] Calcium [Mass/Vol] 9.8 mg/dL 8.6 - 10.4 mg/dL [facility] Chloride [Moles/Vol] 102 mmol/L 98 - 107 mmol/L [facility] CO2 [Moles/Vol] 22 mmol/L 20 - 31 mmol/L [facility] Creatinine [Mass/Vol] 0.7 mg/dL 0.5 - 0.9 mg/d L [facility] GFR/1.73 sq M.predicted MDRD (S/P/Bld) [Vol rate/Area] - PINF [facility] Comment on above: These results are not intended for use in patients <18 years of age. eGFR results are calculated without a race factor using the 2020 CKD-EPI equation. Careful clinical correlation is recommended, particularly when comparing to results calculated using previous equations. The CKD-EPI equation is less accurate in patients with extremes of muscle mass, extra-renal metabolism of creatine, excessive creatine ingestion, or following therapy that affects renal tubular secretion. Glucose [Mass/Vol] 113 mg/dL High 70 - 99 mg/dL [facility] Interpretation and review of laboratory results Abnormal [facility] Potassium [Moles/Vol] 3.3 mmol/L Low 3.7 - 5.3 mmol /L [facility] Protein [Mass/Vol] 7.2 g/dL 6.4 - 8.3 g/dL [facility] Sodium [Moles/Vol] 136 mmol/L 135 - 144 mmol/L [facility] Urea nitrogen [Mass/Vol] 14 mg/dL 6 - 20 mg/d L [facility] Urea nitrogen/Creatinine [Ma ss ratio] 20 mg/mg 9 - 20 [facility] Lipaseon 12-22-2022 Lipase [Catalytic activity/Vol] 43 U/L Normal 13-6 0 [facility] Comment on above: Performed By: #### L IP, CDP, CP #### [facility] [address] [place] [address] Technical Sales Representative: Claudio Hodge MD Lipase [Catalytic activity/Vol] 43 U/L 13 - 60 U/L [facility] No Panel Informationon 12-22 [facility] Ambulatory Visit Summaryon 0 11-06-2022 Ambulatory Visit Summary AUBREE SEQUEIRA :1980 Visit Date:11/06/2022 Ambulatory Visit Instructions Your Diagnosis ADD (attention deficit disorder) without hyperactivity Bilateral leg pain Endometriosis Pain in left leg Your Care Team Attending Physician - Dioni BACON DO Primary Care Physician - Dioni BACON DO This Is Your Medications List lisdexamfetamine (Vyvanse 60 mg oral capsule) predniSONE (predniSONE 10 mg Tab) ropinirole (ropinirole 4 mg oral tablet) Contact prescribing physician if questions or concerns APAP/ASA/caffeine (Excedrin Migraine) Misc Prescription (Magnesium Chloride 64) albuterol (Albuterol (Eqv-ProAir HFA) 90 mcg/inh inhalation aerosol) aripiprazole (aripiprazole 2 mg Tab) baclofen (baclofen 5 mg oral tablet) cetirizine (cetirizine 10 mg Tab) cholecalciferol (Vitamin D3 5000 intl units oral capsule) famotidine (Pepcid 40 mg Tab) ferrous sulfate (ferrous sulfate 325 mg oral enteric coated tablet) galcanezumab (Emgality Prefilled Pen 120 mg/mL subcutaneous solution) hydrochlorothiazide-olmesartan (hydrochlorothiazide-olmesartan 12.5 mg-20 mg oral tablet) omeprazole (omeprazole 20 mg Cap-DR) ondansetron (Zofran ODT 4 mg Tab-Dis) rizatriptan (rizatriptan 5 mg oral tablet) thyroid desiccated (Holland Thyroid 30 mg Tab) venlafaxine (venlafaxine 150 mg Cap-ER) Procedures Performed Arthroscopy of shoulder (11/22/2019), Fasciotomy of foot (01/16/2017), Plantar fasciotomy (01/16/2017), diagnostic laparoscopy with fulguration of endometriosis (02/17/2013), Endometrial ablation (2009), Cholecystectomy (2004), Caesarean section (1999), Tubal ligation (1999), Appendectomy (1997), Tonsillectomy (1992), EGD, lithotripsy of [place], stone basket for kidney stone. Discharge Vitals Heart Rate (Peripheral) 91 Blood Pressure 130/80 Height 168 cm Height 66 in Weight 92 kg Weight 202.4 lb BMI 32.6 What to do next You Need to Schedule the Following Appointments Follow Up with Dioni BACON DO, FAM When: In 3 months Where: [address] [place] [address]- Medications What How Much When Why Instructions Changed lisdexamfetamine (Vyvanse 60 mg oral capsule) 1 Capsules By Mouth Once a day (in the morning) ADD (attention deficit disorder) without hyperactivity 30 days. DNF until due in December 2022 Pickup at [facility] Changed ropinirole (ropinirole 4 mg oral tablet) 1 Tablets By Mouth 3 times a day Pickup at [facility] Unchanged predniSONE (predniSONE 10 mg Tab) 1 Dose Separtor By Mouth As Directed Take 5 tabs by mouth daily x3 days, 4 daily x3 days, 3 daily x3 days, 2 daily x3 days, then 1 tab daily x3 days. Pickup at [facility] Unchanged albuterol (Albuterol (Eqv-ProAir HFA) 90 mcg/ inh inhalation aerosol) 2 Puffs Inhalation Every 6 hours Contact prescribing physician if questions or concerns Unchanged APAP/ ASA/ caffeine (Excedrin Migraine) 2 Tablets By Mouth Every 6 hours as needed for Migraine headache Contact prescribing physician if questions or concerns Unchanged aripiprazole (aripiprazole 2 mg Tab) 2 Milligram By Mouth Every day Contact prescribing physician if questions or concerns Unchanged baclofen (baclofen 5 mg oral tablet) 1 Tablets By Mouth 2 times a day Contact prescribing physician if questions or concerns Unchanged cetirizine (cetirizine 10 mg Tab) 1 Tablets By Mouth Every day Contact prescribing physician if questions or concerns Unchanged cholecalciferol (Vitamin D3 5000 intl units oral capsule) 1 Capsules By Mouth Every day Contact prescribing physician if questions or concerns Unchanged famotidine (Pepcid 40 mg Tab) 1 Tablets By Mouth Once a day (at bedtime) Contact prescribing physician if questions or concerns Unchanged ferrous sulfate (ferrous sulfate 325 mg oral enteric coated tablet) 1 Tablets By Mouth Every day Contact prescribing physician if questions or concerns Unchanged galcanezumab (Emgality Prefilled Pen 120 mg/ mL subcutaneous solution) 120 Milligram Subcutaneous Once a month [id number] Contact prescribing physician if questions or concerns Unchanged hydrochlorothiazide-olmesartan (hydrochlorothiazide-olmesartan 12.5 mg-20 mg oral tablet) 1 Tablets By Mouth Every day Contact prescribing physician if questions or concerns Unchanged Misc Prescription (Magnesium Chloride 64) 1 tab By Mouth At bedtime Contact prescribing physician if questions or concerns Unchanged omeprazole (omeprazole 20 mg Cap-DR) 1 Capsules By Mouth Every day Duration: 90 Days Contact prescribing physician if questions or concerns Unchanged ondansetron (Zofran ODT 4 mg Tab-Dis) 1 Tablets By Mouth Every 8 hours as needed for Nausea/Vomiting Contact prescribing physician if questions or concerns Unchanged rizatriptan (rizatriptan 5 mg oral tablet) 1 Tablets By Mouth Every day as needed for for migraine headache may repeat dose every 2 hours up to a maximum of (more content not included)... Normal [facility] Family Medicine Office/Clini c Noteon 11-06-2022 Family Medicine Office/Clinic Note Chief Complaint ADD follow up HPI Staff Aubree is a 42 y.o. female here for 3 month follow up She has a hx of ADD which is controlled with Vyvanse 60 mg once daily She states this helps with concentration and denies difficulty w/ sleep. She states leg pain has not improved She did go see neurology She is treating with Ibuprofen without success History of Present Illness I have reviewed and verified the staff HPI to be accurate for this encounter. Review of Systems Constitutional: no fever, no chills, no sweats, no weakness Respiratory: no shortness of breath, no cough, no orthopnea, no wheezing Cardiovascular: no chest pain, no palpitations, no edema Additional ROS info: Except as noted in the above Review of Systems and in the History of Present Illness all other systems have been reviewed and are negative or noncontributory. Physical Exam Vitals & Measurements HR: 91(Peripheral) BP: 130/80 SpO2: 98% HT: 66 in HT: 168 cm WT: 92 kg WT: 202.4 lb BMI: 32.6 General: alert, no acute distress ENMT: TM's clear, oral mucosa moist, no pharyngeal erythema or exudate Cardiovascular: regular rate and rhythm, normal peripheral perfusion Respiratory: Lungs CTA, respirations non labored Extremities: no deformity, no trauma Neurological: oriented x 4, LOC appropriate for age, CN II-XII intact, motor strength equal & normal bilaterally, sensation equal & normal bilaterally, speech normal Assessment/Plan 1. ADD (attention deficit disorder) without hyperactivity (F98.8: Other specified behavioral and emotional disorders with onset usually occurring in childhood and adolescence) Can continue the Vyvanse Ordered: lisdexamfetamine, 60 mg = 1 cap(s), Oral, qAM, 30 days. DNF until due in December 2022, # 30 cap(s), Refills(s) 0, Pharmacy: [facility], 168, cm, 11/06/22 10:03:00 EDT, Height/Length Dosing, 92, kg, 11/06/22 10:03:00 EDT, Weight Dosing 2. Bilateral leg pain (M79.604: Pain in right leg) will increase the Ropinorole to 4 mg 3. Endometriosis (N80.9: Endometriosis, unspecified) OB thinks removing the Uterus could resolve the pain Pain in left leg (M79.605: Pain in left leg) Orders: predniSONE, 0 = 1 -, Oral, As Directed, Take 5 tabs by mouth daily x3 days, 4 daily x3 days, 3 daily x3 days, 2 daily x3 days, then 1 tab daily x3 days., # 45 tab(s), Refills(s) 0, Pharmacy: [facility], 168, cm, 11/06/22 10:03:00 EDT, Height/Lengt... ropinirole, 4 mg = 1 tab(s), Oral, TID, # 90 tab(s), Refills(s) 2, Pharmacy: [facility], 168, cm, 11/06/22 10:03:00 EDT, Height/Length Dosing, 92, kg, 11/06/22 10:03:00 EDT, Weight Dosing Follow-up With When Contact Information Dioni BACON DO, FAM In 3 months [address] [place] [id number]- Additional Instructions: Problem List/Past Medical History Ongoing ADD (attention deficit disorder) without hyperactivity Amenorrhea Bilateral leg pain Borderline hypothyroidism Chronic daily headache Cigarette smoker Claudication Endometriosis History of endometrial ablation Hypertension Insulin resistance Iron deficiency Migraine headache 346.90 Mild depression Nerve pain Osteoarthritis of neck Restless legs Sleep apnea Vitamin D deficiency Historical Chronic back pain HTN - Hypertension Kidney stone Procedure/Surgical History Arthroscopy of shoulder (11/22/2019), Fasciotomy of foot (01/16/2017), Plantar fasciotomy (01/16/2017), diagnostic laparoscopy with fulguration of endometriosis (02/17/2013), Endometrial ablation (2009), Cholecystectomy (2004), Caesarean section (1999), Tubal ligation (1999), Appendectomy (1997), Tonsillectomy (1992), [facility], stone basket for kidney stone. Medications Albuterol (Eqv-ProAir HFA) 90 mcg/inh inhalation aerosol, 2 puff(s), Inhalation, q6hr, 5 refills aripiprazole 2 mg Tab, 2 mg, Oral, Daily, 2 refills Holland Thyroid 30 mg Tab, 30 mg= 1 tab(s), Oral, Daily baclofen 5 mg oral tablet, 5 mg= 1 tab(s), Oral, BID cetirizine 10 mg Tab, 10 mg= 1 tab(s), Oral, Daily, 3 refills Emgality Prefilled Pen 120 mg/mL subcutaneous solution, 120 mg, SubCutaneous, qMonth Excedrin Migraine, 2 tab(s), Oral, q6hr, PRN ferrous sulfate 325 mg oral enteric coated tablet, 325 mg= 1 tab(s), Oral, Daily hydrochlorothiazide-olmesartan 12.5 mg-20 mg oral tablet, 1 tab(s), Oral, Daily, 3 refills Magnesium Chloride 64, 1 tab, Oral, Bedtime, 1 refills omeprazole 20 mg Cap-DR, 20 mg= 1 cap(s), Oral, Daily, 1 refills Pepcid 40 mg Tab, 40 mg= 1 tab(s), Oral, Once a day (at bedtime), 2 refills predniSONE 10 mg Tab, 1 -, Oral, As Directed rizatriptan 5 mg oral tablet, 5 mg= 1 tab(s), Oral, Daily, PRN, 1 refills ropinirole 4 mg oral tablet, 4 mg= 1 tab(s), Oral, TID, 2 refills venlafaxine 150 mg Cap-ER, 150 mg= 1 cap(s), Oral, Daily, 1 refills Vitamin D3 5000 intl units oral capsule, 125 mcg= 1 cap(s), O (more content not included)... Normal [facility] Comment on above: Result Comment: Elec tronically Signed By: Dioni BACON DO.br\Date and Time Signed: 11/06/22 10:39 EDT Clipboard Summaryon 11-05-19 Clipboard Summary {[id number] Trinity floyd [facility] CNOVon 10-25-2022 CN Office Visit ([facility] ) AUBREE SEQUEIRA ([id number]) 1980 F Date Time Provider Department 10/25/22 2:45 PM ELLIS WHITTEN [facility] During your visit today, we recorded the following information about you: Ellis Whitten APRN.[facility] 10/25/2022 4:45 PM Signed [facility] Radicular Leg Pain - Chronic (> 12 weeks) Initial Exam SUBJECTIVE HISTORY OF PRESENT ILLNESS: Aubreeсергей Sequeira is a 42 year old female who presents with a chief complaint of bilateral hip and leg pain and is seen in consultation requested by Dr. Dioni Bacon or an opinion regarding bilateral lower extremity pain. My final recommendations will be communicated back to the requesting physician by way of shared medical record or letter via US mail. Patient presents with bilateral hip and lower extremity pain for many years . She states that her symptoms have been present for greater than 5 years, she denies accident or injury prior to onset. Prior to today's appointment she has most recently been under the care of her primary care provider Dr. Bacon with referral to [facility] neurology in regards to her symptoms. Prior to Dr. Bacon patient reports that she has been evaluated by multiple neurologist in [facility]. She states they just want to give me meds and no one wants to help me . Currently employed at [employer] Smoker - cessation reviewed and encouraged Pain localized to Bilateral lower extremities Pain described as constant , aching Radiation: Blater hips to BLE -entirely Numbness/Tingling: Intermittnet to ankles and feet and all toes She denies loss of bowel or bladder control, denies dexterity difficulties, denies imbalance. Pain rated 4/10 at worst 10/10 Pain worse with rotating hips inwards or outwards - for long periods of time. Pain improved with nothing Interventions:heat, ice, medications Medications: Vyvanse , prednisone , Effexor, Past medications: Gabapentin - did not work, Robinul, baclofen, B12, : She states medications were ineffective. Physical Therapy: None Treating Physicians: Dr. Bacon - PCP - Dr. Sinclair - Neurology - last seen [address] Jean Roberts - Neurology - [facility] quite a few years ago History of Spine Injections/Surgery: None for spine RT shoulder impingement surgery Other Issues Addressed at the Visit Today: None. Precipitating Event: None PAIN EVALUATION 10/25/2022 1504 Pain Level: 4 worse when standing for long periods Pain Location: -- Hips to both legs Description: Aching Duration Units: Years Frequency: Continuous Litigation: No Workers' Compensation: No YELLOW AND BLUE FLAGS YES-Neg Attitude; Back Pain is Disabling YES-Avoiding Activity (for Fear of Pain) YES-Depression or Anxiety Disorders No-Social Problems No-Substance Use Disorder No-Job Dissatisfaction No-Financial Disincentives Patient Entered Questionnaires PROMIS Score Percentiles Percentiles provide an indication of how the patient's score ranks in relation to the general population. Higher percentile rankings indicate better function/quality of life. 50th percentile is the average of the general population and indicates half of respondents had a worse score. Depression Screening: PHQ-9 Self-Harm (Item 9) response options: 0 Not at all 1 Several days 2 More than half the days 3 Nearly every day PHQ-9 Levels: 0-4 No - mild depression 5-9 Mild depression 10-14 Moderate depression 15-19 Moderately severe depression 20-27 Severe depression There is no problem list on file for this patient. PAST MEDICAL HISTORY Diagnosis Date Migraine Nephrolithiasis PAST SURGICAL HISTORY Procedure Laterality Date APPENDECTOMY , CLASSIC, ANTE/POST CA CHOLECYSTECTOMY CYSTOSCOPY,URETEROSCOPY,LITHOTRIPSY 1999 LAPAROSCOPY DIAGNOSTIC for endometriosis TONSILLECTOMY HX Social History Tobacco Use Smoking status: Every Day Packs/day: 1.00 Types: Cigarettes FAMILY HISTORY Problem Relation Age of Onset Hypertension Mother ALLERGIES Allergen Reactions Penicillins Hives CURRENT MEDICATIONS: lisdexamfetamine (VYVANSE) 60 mg capsule Take 60 mg by mouth. venlafaxine ER (EFFEXOR XR) 150 mg 24 hr capsule Take 1 capsule by mouth once daily. Olmesartan-hydroCHLOROthiazide 20-12.5 mg per tablet Take 1 tablet by mouth once daily. ibuprofen 800 mg tablet Take 800 mg by mouth as needed. rizatriptan (MAXALT) 10 mg tablet Take 10 mg by mouth as needed. May repeat in 2 hours if needed (Patient not taking: Reported on 10/25/2022) NAPROXEN SODIUM (ALEVE ORAL) Take by mouth as needed. (Patient not taking: Reported on 10/25/2022) REVIEW OF SYSTEMS: PAIN ASSESSMENT: See HPI. GENERAL: Denies fever, chills malaise and weight loss. HEENT: No recent change in vision or hearing. CARDIOVASCULAR: Hypertension RESPIRATORY: Denies SOB, sputum produc (more content not included)... Normal [facility] Medicine Office/Clini c Noteon 10-10-2022 Family Medicine Office/Clinic Note HPI Staff Aubree is a 42 year old female who presents for a 1 month follow up in regards to HTN and chronic leg pain. She has a chronic history of hypertension. monitors BP at home and it has been averaging 150/80-90s. Patient denies chest pain, palpitations, headache, SOB, BLACKBURN, lightheadedness, dizziness, visual changes, epistaxis, peripheral edema or postural changes. Denies pressure behind her eyes. Patient is currently taking olmesartan-hctz 20-12.5mg once daily, as directed without adverse reactions. Reports she has not been taking the amlodipine and refuses to do so as she has taken it before with adverse effects. States the leg pain has improved with the prednisone, but has not resolved entirely. She has not been taking the medication as directed, and has been spacing it out in an attempt to prevent the pain from returning. She was also referred to neurology, however reports that she has not been contacted to schedule an appointment. Notes that she does not want a referral to [facility]. History of Present Illness I have reviewed and verified the staff HPI to be accurate for this encounter. Still with leg pain. Concern she has EDS. My concern is small fiber neuropathy. ADD is controlled on Vyvanse Review of Systems PHQ Score Initial Depression Screen Score: 0 Constitutional: no fever, no chills, no sweats, no weakness Respiratory: no shortness of breath, no cough, no orthopnea, no wheezing Cardiovascular: no chest pain, no palpitations, no edema Additional ROS info: Except as noted in the above Review of Systems and in the History of Present Illness all other systems have been reviewed and are negative or noncontributory. Physical Exam Vitals & Measurements T: 36.4 ?C(Temporal Artery) HR: 81(Peripheral) BP: 124/72 SpO2: 95% HT: 66 in HT: 168 cm WT: 91.8 kg WT: 201.96 lb BMI: 32.53 General: alert, no acute distress ENMT: TM's clear, oral mucosa moist, no pharyngeal erythema or exudate Cardiovascular: regular rate and rhythm, normal peripheral perfusion Respiratory: Lungs CTA, respirations non labored Extremities: no deformity, no trauma Neurological: oriented x 4, LOC appropriate for age, CN II-XII intact, motor strength equal & normal bilaterally, sensation equal & normal bilaterally, speech normal Assessment/Plan 1. Bilateral leg pain (M79.604: Pain in right leg) She needs to call [facility] - suspect SFN, especially with improvement with prednisone 2. ADD (attention deficit disorder) without hyperactivity (F98.8: Other specified behavioral and emotional disorders with onset usually occurring in childhood and adolescence) refill Vyvanse 3. Hypertension (I10: Essential (primary) hypertension) much improved. continue current regimen. Pain in left leg (M79.605: Pain in left leg) Orders: amlodipine, 5 mg = 1 tab(s), Oral, Daily, # 90 tab(s), Refills(s) 0, Pharmacy: [facility], 168, cm, 09/18/22 9:57:00 EDT, Height/Length Dosing, 93, kg, 09/18/22 9:57:00 EDT, Weight Dosing Follow-up With When Contact Information Dioni BACON DO, FAM In 3 months [address] [place] [address]- Additional Instructions: Problem List/Past Medical History Ongoing ADD (attention deficit disorder) without hyperactivity Amenorrhea Bilateral leg pain Borderline hypothyroidism Chronic daily headache Cigarette smoker Claudication Endometriosis History of endometrial ablation Hypertension Insulin resistance Iron deficiency Migraine headache 346.90 Mild depression Nerve pain Osteoarthritis of neck Restless legs Sleep apnea Vitamin D deficiency Historical Chronic back pain HTN - Hypertension Kidney stone Procedure/Surgical History Arthroscopy of shoulder (11/22/2019), Fasciotomy of foot (01/16/2017), Plantar fasciotomy (01/16/2017), diagnostic laparoscopy with fulguration of endometriosis (02/17/2013), Endometrial ablation (2009), Cholecystectomy (2004), Caesarean section (1999), Tubal ligation (1999), Appendectomy (1997), Tonsillectomy (1992), EGD[facility], stone basket for kidney stone. Medications Albuterol (Eqv-ProAir HFA) 90 mcg/inh inhalation aerosol, 2 puff(s), Inhalation, q6hr, 5 refills aripiprazole 2 mg Tab, 2 mg, Oral, Daily, 2 refills Holland Thyroid 30 mg Tab, 30 mg= 1 tab(s), Oral, Daily baclofen 5 mg oral tablet, 5 mg= 1 tab(s), Oral, BID cetirizine 10 mg Tab, 10 mg= 1 tab(s), Oral, Daily, 3 refills Emgality Prefilled Pen 120 mg/mL subcutaneous solution, 120 mg, SubCutaneous, qMonth Excedrin Migraine, 2 tab(s), Oral, q6hr, PRN ferrous sulfate 325 mg oral enteric coated tablet, 325 mg= 1 tab(s), Oral, Daily hydrochlorothiazide-olmesartan 12.5 mg-20 mg oral tablet, 1 tab(s), Oral, Daily, 3 refills Magnesium Chloride 64, 1 tab, Oral, Bedtime, 1 refills omeprazole 20 mg Cap-DR, 20 mg= 1 cap(s), Oral, Daily, 1 refills Pepcid 40 mg Tab, 40 mg= 1 tab(s), Oral, Once a day (at bedtime), 2 re (more content not included)... Normal [facility] Comment on above: Result Comment: Elec tronically Signed By: Dioni BACON DO\Date and Time Signed: 10/10/22 11:18 EDT Physician Referralon 023 Physician Referral [id number]:127 Normal [facility] ED Note-Physicianon 09-20-19 ED Note-Physician [id number]:127 Normal [facility] Basic Metabolic Profon 09-18 Anion gap [Moles/Vol] 11 mmol/L Normal 9-17 [facility] Comment on above: Performed By: #### C DP, BMP #### [facility] [address] [place], [place] [id number] Technical Sales Representative: Claudio Hodge MD BUN/CRE Ratio 10 Normal 9- [facility] Comment on above: Performed By: #### C DP, BMP #### [facility] [address] [place], [place] [id number] Technical Sales Representative: Claudio Hodge MD Calcium [Mass/Vol] 8.6 mg/dL Normal 8.6-10.4 [facility] Comment on above: Performed By: #### C DP, BMP #### [facility] [address] [place], [place] [id number] Technical Sales Representative: Claudio Hodge MD Chloride [Moles/Vol] 104 mmol/L Normal 98-107 [facility] Comment on above: Performed By: #### C DP, BMP #### [facility] [address] [place], [place] [id number] Technical Sales Representative: Claudio Hodge MD CO2 [Moles/Vol] 22 mmol/L Normal 20-[address] [facility] Comment on above: Performed By: #### C DP, BMP #### [facility] [address] [place], [place] [id number] Technical Sales Representative: Claudio Hodge MD Creatinine [Mass/Vol] 0.70 mg/dL Normal 0.50-0.90 [facility] Comment on above: Performed By: #### C DP, BMP #### [facility] [address] [place], [place] [id number] Technical Sales Representative: Claudio Hodge MD GFR/1.73 sq M.predicted chase g non-blacks MDRD (S/P/Bld) [Vol rate/Area] mL/min/{1.73_m2} Normal >60 [facility] Comment on above: Result Comment: These results are not intended for use in patients <18 years of age. eGFR results are calculated without a race factor using the 2020 CKD-EPI equation. Careful clinical correlation is recommended, particularly when comparing to results calculated using previous equations. The CKD-EPI equation is less accurate in patients with extremes of muscle mass, extra-renal metabolism of creatine, excessive creatine ingestion, or following therapy that affects renal tubular secretion. Performed By: #### C DP, BMP #### [facility] [address] [place], [place] [id number] Technical Sales Representative: Claudio Hodge MD Glucose [Mass/Vol] 105 mg/dL High 70-99 [facility] Comment on above: Performed By: #### C DP, BMP #### [facility] [address] [place], [place] [id number] Technical Sales Representative: Claudio Hodge MD Potassium [Moles/Vol] 2.9 mmol/L Critically low 3.7-5.3 [facility] Comment on above: Performed By: #### C DP, BMP #### [facility] [address] [place], [place] [id number] Technical Sales Representative: Claudio Hodge MD Sodium [Moles/Vol] 137 mmol/L Normal 135-144 [facility] Comment on above: Performed By: #### C DP, BMP #### [facility] [address] [place], [place] [id number] Technical Sales Representative: Claudio Hodge MD Urea nitrogen [Mass/Vol] 7 mg/dL Normal 6-20 [facility] Comment on above: Performed By: #### C DP, BMP #### [facility] [address] [place] [id number] Technical Sales Representative: Claudio Hodge MD CBC with Diffon 09-18-2022 Abs. Basophil 0.00 k/uL Normal 0.0-0.2 [facility] Comment on above: Performed By: #### C DP, BMP #### [facility] [address] [place] [address] Technical Sales Representative: Claudio Hodge MD Abs.Neutrophil (Seg) 3.80 k/uL Normal 2.5-7.0 [facility] Comment on above: Performed By: #### C DP, BMP #### [facility] [address] [place] [address] Technical Sales Representative: Claudio Hodge MD Auto Diff Performed YES Normal [facility] Comment on above: Performed By: #### C DP, BMP #### [facility] [address] [place] [id number] Technical Sales Representative: Claudio Hodge MD Basophils/100 WBC (Bld) 1 % Normal 0-2 [facility] Comment on above: Performed By: #### C DP, BMP #### [facility] [address] [place] [address] Technical Sales Representative: Claudio Hodge MD Eosinophils (Bld) [#/Vol] 0.40 10*3/uL Normal 0.0-0.4 [facility] Comment on above: Performed By: #### C DP, BMP #### [facility] [address] [place] [id number] Technical Sales Representative: Claudio Hodge MD Eosinophils/100 WBC (Bld) 5 % Normal 0-5 [facility] Comment on above: Performed By: #### C DP, BMP #### [facility] [address] [place] [address] Technical Sales Representative: Claudio Hodge MD Erythrocyte distribution wid th (RBC) [Ratio] 13.9 % Normal 12.1-15.2 [facility] Comment on above: Performed By: #### C DP, BMP #### [facility] [address] [place] [address] Technical Sales Representative: Claudio Hodge MD Hematocrit (Bld) [Volume fraction] 38.7 % Normal 3 6-46 [facility] Comment on above: Performed By: #### C DP, BMP #### [facility] [address] [place] [address] Technical Sales Representative: Claudio Hodge MD Hemoglobin (Bld) [Mass/Vol] 12.8 g/dL Normal 12.0-16. 0 [facility] Comment on above: Performed By: #### C DP, BMP #### [facility] [address] [place] [address] Technical Sales Representative: Claudio Hodge MD Lymphocytes (Bld) [#/Vol] 2.60 10*3/uL Normal 1.0-4.8 [facility] Comment on above: Performed By: #### C DP, BMP #### [facility] [address] [place] [address] Technical Sales Representative: Claudio Hodge MD Lymphocytes/100 WBC (Bld) 35 % Normal 15-40 [facility] Comment on above: Performed By: #### C DP, BMP #### [facility] [address] [place] [address] Technical Sales Representative: Claudio Hodge MD MCH (RBC) [Entitic mass] 27.6 pg Normal 26-34 [facility] Comment on above: Performed By: #### C DP, BMP #### [facility] [address] [place] [address] Technical Sales Representative: Claudio Hodge MD MCHC (RBC) [Mass/Vol] 33.0 g/dL Normal 31-37 [facility] Comment on above: Performed By: #### C DP, BMP #### [facility] [address] [place], [place] [id number] Technical Sales Representative: Claudio Hodge MD MCV (RBC) [Entitic vol] 83.8 fL Normal 80-100 [facility] Comment on above: Performed By: #### C DP, BMP #### [facility] [address] [place] [address] Technical Sales Representative: Claudio Hodge MD Monocytes (Bld) [#/Vol] 0.60 10*3/uL Normal 0.0-1.0 [facility] Comment on above: Performed By: #### C DP, BMP #### [facility] [address] [place] [address] Technical Sales Representative: Claudio Hodge MD Monocytes/100 WBC (Bld) 8 % Normal 4-8 [facility] Comment on above: Performed By: #### C DP, BMP #### [facility] [address] [place], [place] [id number] Technical Sales Representative: Claudio Hodge MD Neutrophil (Seg) 51 % Normal 47-75 [facility] Comment on above: Performed By: #### C DP, BMP #### [facility] [address] [place], [place] [id number] Technical Sales Representative: Claudio Hodge MD Platelets (Bld) [#/Vol] 320 10*3/uL Normal 140-450 [facility] Comment on above: Performed By: #### C DP, BMP #### [facility] [address] [place], [place] [id number] Technical Sales Representative: Claudio Hodge MD RBC (Bld) [#/Vol] 4.62 10*6/uL Normal 4.0-5.2 [facility] Comment on above: Performed By: #### C DP, BMP #### [facility] [address] [place] [address] Technical Sales Representative: Claudio Hodge MD WBC (Bld) [#/Vol] 7.4 10*3/uL Normal 3.5-11.0 [facility] Comment on above: Performed By: #### C DP, BMP #### [facility] [address] [place] [address] Technical Sales Representative: Claudio Hodge MD Consent for Treatmenton 09-09 Consent for Treatment [id number]:127 Normal [facility] Family Medicine Office/Clini c Noteon 09-18-2022 Family Medicine Office/Clinic Note HPI Staff Aubree is a 41 year old female who presents with C/O HTN. She has been monitoring her BP at home and has a BP log with her to review. She was evaluated at [facility] last night for this concern. Reports she had pain/pressure behind her eyes prior to arrival. Her blood pressure came down to 151/75 last night prior to discharge. She was advised that her potassium was low at 2.9. She took olmesartan-hctz 20-12.5mg this morning as directed. Reports she had previously stopped taking the medication. BP today in the office was 146/82. Patient denies chest pain, palpitations, headache, SOB, [place], lightheadedness, dizziness, visual changes, epistaxis, peripheral edema or postural changes today in the office. Also states she continues to have chronic bilateral leg pain. She continues to take ropinirole as directed, however, it is not as effective as it was initially. States it worked for about 1 week and then she feels that she plateaued. History of Present Illness I have reviewed and verified the staff HPI to be accurate for this encounter. Review of Systems PHQ Score Initial Depression Screen Score: 0 Constitutional: no fever, no chills, no sweats, no weakness Respiratory: no shortness of breath, no cough, no orthopnea, no wheezing Cardiovascular: no chest pain, no palpitations, no edema Additional ROS info: Except as noted in the above Review of Systems and in the History of Present Illness all other systems have been reviewed and are negative or noncontributory. Physical Exam Vitals & Measurements T: 36.8 ?C(Temporal Artery) BP: 146/82 HT: 66 in HT: 168 cm WT: 93.0 kg WT: 204.6 lb BMI: 32.95 General: alert, no acute distress Skin: warm, dry Head: no trauma, normocephalic Neck: Trachea midline, no adenopathy, no tenderness Eye: normal conjunctiva, sclera clear ENMT: TM's clear, oral mucosa moist, no pharyngeal erythema or exudate Cardiovascular: regular rate and rhythm, normal peripheral perfusion Respiratory: Lungs CTA, respirations non labored Chest wall: no deformity. Gastrointestinal: soft, non distended, no tenderness, no guarding. Back: No tenderness, Normal ROM, Normal alignment. Extremities: no deformity, no trauma. Tender with internal rotation of hips bilaterally Neurological: oriented x 4, LOC appropriate for age, CN II-XII intact, motor strength equal & normal bilaterally, sensation equal & normal bilaterally, speech normal Psychiatric: cooperative, affect appropriate for age, normal judgement, normal psychiatric thoughts. Assessment/Plan 1. Hypertension (I10: Essential (primary) hypertension) add amlodipine. monitor eye sxs 2. Bilateral leg pain (M79.604: Pain in right leg) see orders Ordered: [facility] [place] Referral US LE Venous Duplex Bilateral XR Hip 2-3 Views Left XR Hip 2-3 Views Right 3. Claudication (I73.9: Peripheral vascular disease, unspecified) await PVR Ordered: US LE Venous Duplex Bilateral 4. Nerve pain (M79.2: Neuralgia and neuritis, unspecified) Will see if she responds to prednisone. refer to Neuro for further w/u. ? need for muscle biopsy. Remote h/o of NCS/EMG unremarkable. Ordered: [facility] [place] Referral Pain in left leg (M79.605: Pain in left leg) Orders: amlodipine, 5 mg = 1 tab(s), Oral, Daily, # 90 tab(s), Refills(s) 0, Pharmacy: [facility], 509, cm, 09/18/22 9:57:00 EDT, Height/Length Dosing, 93, kg, 09/18/22 9:57:00 EDT, Weight Dosing predniSONE, 0 = 1 -, Oral, As Directed, Take 5 tabs by mouth daily x3 days, 4 daily x3 days, 3 daily x3 days, 2 daily x3 days, then 1 tab daily x3 days., # 45 tab(s), Refills(s) 0, Pharmacy: [facility], 168, cm, 09/18/22 9:57:00 EDT, Height/Length... 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 Amenorrhea Bilateral leg pain Borderline hypothyroidism Chronic daily headache Cigarette smoker Claudication Endometriosis History of endometrial ablation Hypertension Insulin resistance Iron deficiency Migraine headache 346.90 Mild depression Nerve pain Osteoarthritis of neck Restless legs Sleep apnea Vitamin D deficiency Historical Chronic back pain HTN - Hypertension Kidney stone Procedure/Surgical History Arthroscopy of shoulder (11/22/2019), Fasciotomy of foot (01/16/2017), Plantar fasciotomy (01/16/2017), diagnostic laparoscopy with fulguration of endometriosis (02/17/2013), Endometrial ablation (2009), Cholecystectomy (2004), Caesarean section (1999), Tubal ligation (1999), Appendectomy (1997), Tonsillectomy (1992), EGD, lithotripsy of [place], stone basket for kidney stone. Medications Albuterol (Eqv-ProAir HFA) 90 mcg/inh inhalation aerosol, 2 puff(s), Inhalation (more content not included)... Normal [facility] Comment on above: Result Comment: Elec tronically Signed By: Dioni BACON DO\.br\Date and Time Signed: 09/18/22 10:28 EDT Provider Letteron 09-18-2022 Provider Letter (Inserted Image. Dia ble to display) September 18, 2022 AUBREE SEQUEIRA [address] [place] [address] AUBREE SEQUEIRA 1980 To Whom It May Concern, Please excuse above patient from work. Date of Illness: From: _ 09/17/2022 To: _ 09/23/2022 May Return to Work On: 09/23/2022 Restrictions: _ none Comments: _ Sincerely, Dr. Dioni Bacon DO. [place] [address] [address] [place] [address] Colby Villaseñor [facility] US PVR Lower EXT Complete Bi laton 09-18-2022 US PVR Lower EXT Complete Bilat Exam Date/Time: 09/17/2022 12:38 EDT Reason for Exam: M79.604;Claudication Report IMPRESSION: NO EVIDENCE OF SIGNIFICANT ARTERIAL STENOTIC DISEASE INVOLVING THE RIGHT AND LEFT LEGS. CLINICAL HISTORY: Claudication, M79.604. COMMENT: On the right, the brachial systolic pressure is 219 , the high thigh pressure is >255, the low thigh pressure is 223 , the calf pressure is 217 , the posterior tibial ankle pressure is 229 , the dorsalis pedis ankle pressure is 209 , and the digit pressure is 198 . The low thigh-brachial index is 1.02, with normal 1.0 or greater. The ankle-brachial index at the posterior tibial artery is 1.05 and at the dorsalis pedis is 0.95, with normal 1.0 or greater. The toe-brachial index is 0.90, with normal 0.7 or greater. The plethysmography waveforms are normal. On the left, the brachial systolic pressure is 203 , the high thigh pressure is >255, the low thigh pressure is 218 , the calf pressure is 238 , the posterior tibial ankle pressure is 250 , the dorsalis pedis ankle pressure is 222 , and the digit pressure is 202 . The low thigh-brachial index is 1.0, with normal 1.0 or greater. The ankle-brachial index at the posterior tibial artery is 1.14 and at the dorsalis pedis is 1.01, with normal 1.0 or greater. The toe-brachial index is 0.92, with normal 0.7 or greater. The plethysmography waveforms are normal. Ordering Provider: Dioni BACON FINAL REPORT Dictated: 09/18/2022 2:27 pm Kash Whittaker, Ranjith Floyd Signed (Electronic Signature): 09/18/2022 2:27 pm Signed by: Ranjith Hewitt M.D. Transcribed by: ZAIN Technologist: LESLEE Bowman [facility] XR Hip Bilat 2 Views + Pelvi son 09-18-2022 XR Hip Bilat 2 Views + Pelvis Exam Date/Time: 09/18/2022 11:46 EDT Reason for Exam: M79.604 pain in bilateral leg Report IMPRESSION: NEGATIVE BILATERAL HIPS. CLINICAL HISTORY: Hip pain, M79.604 pain in right leg COMPARISONS: NONE AVAILABLE FINDINGS: AP pelvis and AP and lateral views of both hips were obtained. There is no hip fracture or dislocation. The hip joint space is well preserved. There are no bone erosions or bone lesions involving the hips. . Bilateral tubal ligation clips identified. Ordering Provider: Dioni BACON FINAL REPORT Dictated: 09/18/2022 2:49 pm John King MD Signed (Electronic Signature): 09/18/2022 2:49 pm Signed by: John King MD Transcribed by: ZAIN Technologist: NIKOLAY Technical Comments Radiation Dose: Ka,r in mGy = na DAP = na Normal [facility] Basic Metabolic Panelon Anion gap [Moles/Vol] 11 mmol/L 9 - 17 mmol/L [facility] [employer] Calcium [Mass/Vol] 8.6 mg/dL 8.6 - 10.4 mg/dL [facility] [employer] Chloride [Moles/Vol] 104 mmol/L 98 - 107 mmol/L [facility] [employer] CO2 [Moles/Vol] 22 mmol/L 20 - 31 mmol/L [facility] Creatinine [Mass/Vol] 0.7 mg/dL 0.50 - 0.90 mg /dL [facility] [employer] [facility] GFR/1.73 sq M.predicted MDRD (S/P/Bld) [Vol rate/Area] - PINF [facility] Comment on above: These results are not intended for use in patients <18 years of age. eGFR results are calculated without a race factor using the 2020 CKD-EPI equation. Careful clinical correlation is recommended, particularly when comparing to results calculated using previous equations. The CKD-EPI equation is less accurate in patients with extremes of muscle mass, extra-renal metabolism of creatine, excessive creatine ingestion, or following therapy that affects renal tubular secretion. Glucose [Mass/Vol] 105 mg/dL High 70 - 99 mg/dL [facility] Interpretation and review of laboratory results Abnormal [facility] Potassium [Moles/Vol] 2.9 mmol/L Critically low 3.7 - 5.3 mmol/L [facility] Sodium [Moles/Vol] 137 mmol/L 135 - 144 mmol/L [facility] Urea nitrogen [Mass/Vol] 7 mg/dL 6 - 20 mg/d L [facility] Urea nitrogen/Creatinine (Bld) [Mass ratio] 10 9 - 20 [facility] CBC with Auto Differentialon 09-17-2022 Absolute Eos # 0.40 [facility] Absolute Lymph # 2.60 [facility] Absolute Johnston # 0.60 [facility] Basophils (Bld) [#/Vol] 0.00 10*3/uL [facility] Basophils/100 WBC (Bld) 1 % 0 - 2 % [facility] Differential Type YES [facility] Eosinophils/100 WBC (Bld) 5 % 0 - 5 % [facility] Hematocrit (Bld) [Volume fraction] 38.7 % 36 - 46 % [facility] Hemoglobin (Bld) [Mass/Vol] 12.8 g/dL 12.0 - 1 6.0 g/dL [facility] Lymphocytes/100 WBC (Bld) 35 % 15 - 40 % [facility] MCH (RBC) [Entitic mass] 27.6 pg 26 - 34 pg [facility] MCHC (RBC) [Mass/Vol] 33.0 g/dL 31 - 37 g/dL [facility] MCV (RBC) [Entitic vol] 83.8 fL 80 - 100 fL [facility] Monocytes/100 WBC (Bld) 8 % 4 - 8 % [facility] Platelet distribution width (Bld) [Ratio] 13.9 % 12.1 - 15.2 % [facility] Platelets (Bld) [#/Vol] 320 10*3/uL [facility] RBC (Bld) [#/Vol] 4.62 10*6/uL 4.0 - 5.2 m/uL [facility] Segmented neutrophils/100 WB C (Bld) 51 % 47 - 75 % [facility] Segs Absolute 3.80 [facility] WBC (Bld) [#/Vol] 7.4 10*3/uL [facility] Consent for Treatmenton Consent for Treatment [id number]:127 Normal [facility] US LE Venous Duplex Bilatera norma 09-17-2022 LE Venous Duplex Bilateral Exam Date/Time: 09/17/2022 12:39 EDT Reason for Exam: M79.604;Leg pain Report IMPRESSION: NO EVIDENCE OF VENOUS THROMBOSIS INVOLVING VISUALIZED DEEP VEINS OF BOTH LEGS. CLINICAL HISTORY: Leg pain, M79.604. Bilateral leg pain. History of left greater saphenous vein ablation. COMMENT: The right greater saphenous vein, and the external iliac veins, common femoral veins, femoral veins, deep femoral veins, and popliteal veins bilaterally demonstrate spontaneous phasic venous flow with augmentation, non-pulsatility, and compressibility every 2 cm. The posterior tibial and peroneal deep calf veins bilaterally compress. Ordering Provider: Dioni BACON FINAL REPORT Dictated: 09/17/2022 1:44 pm Ranjith Hewitt M.D. Signed (Electronic Signature): 09/17/2022 1:44 pm Signed by: Ranjith Hewitt M.D. Transcribed by: ZAIN Technologist: LESLEE [facility] Ambulatory Visit Summaryon 0 09-13-2022 Ambulatory Visit Summary AUBREE SEQUEIRA :1980 Visit Date:09/13/2022 Ambulatory Visit Instructions Your Diagnosis Hypertension Viral URI with cough BMI 32.0-32.9,adult Your Care Team Attending Physician - CLIFF CARMONA CNP Primary Care Physician - Dioni BACON DO This Is Your Medications List albuterol (Albuterol (Eqv-ProAir HFA) 90 mcg/inh inhalation aerosol) dexamethasone (dexamethasone 1 mg oral tablet) Contact prescribing physician if questions or concerns APAP/ASA/caffeine (Excedrin Migraine) Misc Prescription (Magnesium Chloride 64) aripiprazole (aripiprazole 2 mg Tab) baclofen (baclofen 5 mg oral tablet) cetirizine (cetirizine 10 mg Tab) cholecalciferol (Vitamin D3 5000 intl units oral capsule) famotidine (Pepcid 40 mg Tab) ferrous sulfate (ferrous sulfate 325 mg oral enteric coated tablet) galcanezumab (Emgality Prefilled Pen 120 mg/mL subcutaneous solution) hydrochlorothiazide-olmesartan (hydrochlorothiazide-olmesartan 12.5 mg-20 mg oral tablet) lisdexamfetamine (Vyvanse 60 mg oral capsule) omeprazole (omeprazole 20 mg Cap-DR) ondansetron (Zofran ODT 4 mg Tab-Dis) rizatriptan (rizatriptan 5 mg oral tablet) ropinirole (ropinirole 2 mg Tab) semaglutide (Ozempic 2 mg/1.5 mL (0.25 mg or 0.5 mg dose) subcutaneous solution) thyroid desiccated ([place] Thyroid 30 mg Tab) venlafaxine (venlafaxine 150 mg Cap-ER) Procedures Performed Arthroscopy of shoulder (11/22/2019), Fasciotomy of foot (01/16/2017), Plantar fasciotomy (01/16/2017), diagnostic laparoscopy with fulguration of endometriosis (02/17/2013), Endometrial ablation (2009), Cholecystectomy (2004), Tubal ligation (1999), Appendectomy (1997), Tonsillectomy (1992), EGD, lithotripsy of [place], stone basket for kidney stone. Discharge Vitals Temperature (Temporal Artery) 36.7 ?C Heart Rate (Peripheral) 93 Blood Pressure 176/118 Height 66 in Height 168 cm Weight 204.6 lb Weight 93.0 kg BMI 32.95 What to do next Scheduled Follow-Up Appointments Friday 12:00 PM EDT With: Where: [facility] Friday 10:00 AM EDT With: Dioni BACON DO Where: [facility] Family Medicine Sudhakar Normal [facility] Family Medicine Office/Clini c Noteon 09-13-2022 Family Medicine Office/Clinic Note Chief Complaint cough HPI Staff Aubree is a 41 year old female who presents for cough. Symptoms started- Yesterday Headache- yes Body aches- yes Earache- yes bilat Runny/stuffy nose- no Problem with Smell- no Problem with Taste- no Sore throat- yes Cough- yes Scratchy tickly throat- yes Chest symptoms- yes SOB- yes Lung Hx asthma, bronchitis, chest colds- no Fever/chills- chills Nausea/ vomiting- no GI symptoms- no COVID exposure- no Treatments- yes- cough medicine/ cough drops and Ibuprofen Patient states that she has been checking her BP at home. Reading have been high. Readings around 200/117s. History of Present Illness I have reviewed and verified the staff HPI to be accurate for this encounter. Patient states has been having elevated blood pressures, has been using [id number] Coricidin HBP medication. She is no longer taking her hydrochlorothiazide?olmesartan as she was taking it at night and was waking up multiple times to urinate therefore discontinued medication. She denies any chest pain/discomfort, shortness of breath/troubles breathing, lower extremity edema, postural dizziness Review of Systems PHQ Score Initial Depression Screen Score: 0 ROS - Provider Constitutional: fever no, chills yes, sweats no, body aches yes Skin: rash no, lesions no, petechiae no Eye: eye pain no, discharge no, light sensitivity no, eye irritation no, double vision no, blurring no, vision loss no ENMT: ear pain yes, ear drainage no, sore throat yes, nasal congestion yes , nasal drainage yes Respiratory: chest discomfort yes tightness, shortness of breath yes, cough Yes, Non productive, orthopnea no, wheezing no Cardiovascular: chest pain no, palpitations no, edema no Gastrointestinal: nausea no, vomiting no, diarrhea no Neurologic: headache yes, dizziness no, numbness/tingling no, weakness no Physical Exam Vitals & Measurements T: 36.7 ?C(Temporal Artery) HR: 93(Peripheral) BP: 176/118 SpO2: 97% HT: 66 in HT: 168 cm WT: 93.0 kg WT: 204.6 lb BMI: 32.95 General: Well developed, well nourished, in no acute distress Ears: No deformity or lesion of external ear. Canals and TM appear normal bilaterally. TM?s intact, not inflamed, with normal light reflex. Small serous effusion noted posteriorly to left TM. Hearing grossly normal to conversational speech Nose: Audible congestion, moderate erythema & swollen nasal turbinates, clear rhinorrhea present. Mouth: Mucous membranes moist. Normal oropharynx, and mild erythema of posterior pharynx without lesions or exudates. No palatal inflammation noted Tongue normal Neck: Neck supple. No masses or palpable cervical nodes. Trachea midline. Lungs: No respiratory distress, No conversational dyspnea. Normal respiratory rate. No accessory muscle usage. Lung sounds clear & equal to auscultation bilaterally, anterior and posterior. No wheezes, rales, or rhonchi appreciated. Cardio: Regular rate and rhythm, normal S1 and S2, no murmur, no rub Neurologic: Grossly normal Skin: No rashes, ulcerations, or suspicious lesions to visible skin Mental Status: Alert and oriented x3. Normal mood and affect Assessment/Plan 1. Hypertension (I10: Essential (primary) hypertension) Restart hydrochlorothiazide?olmesartan in the morning as discussed. Continue to monitor blood pressures at home and notify if continue to be elevated after restarting medication or any symptoms should present as discussed. 2. Viral URI with cough (J06.9: Acute upper respiratory infection, unspecified) Did discuss likely viral nature given timeline and exam findings. Symptomatic management discussed including continuing Coricidin HBP for symptoms with hypertension. Will trial on short course of dexamethasone and rescue inhaler to be used as needed. We will also provide one-time IM dose of Toradol in office today for headache. Ordered: cyanocobalamin, 1,000 microgram = 1 mL, Injection, IntraMuscular, Once, Stop date 09/13/22 9:00:00 EDT, Routine, Start date 09/13/22 9:00:00 EDT, 09/13/22 8:50:00 EDT ketorolac, 60 mg = 2 mL, Injection, IntraMuscular, Once, Stop date 09/13/22 8:50:00 EDT, Routine, Start date 09/13/22 8:50:00 EDT, 09/13/22 8:50:00 EDT 3. BMI 32.0-32.9,adult (Z68.32: Body mass index [BMI] 32.0-32.9, adult) Education attached on health risks of obesity and discusses healthy, balanced diet low in sugar, fat, carbs and exercise regimen Ordered: Body Mass Index (BMI) documented 3008F Orders: albuterol, 2 puff(s), Inhalation, q6hr, 8.5 gm, Refill(s) 5, [facility], 168, cm, 09/13/22 8:23:00 EDT, Height/Length Dosing, 93, kg, 09/13/22 8:23:00 EDT, Weight Dosing dexamethasone, 1 mg = 1 tab(s), Oral, BID, X 7 day(s), # 14 tab(s), Refills(s) 0, Pharmacy: [facility], 168, cm, 09/13/22 8:23:00 EDT, Height/Length Dosing, 93, kg, 09/13/22 8:23:00 EDT, Weight Dosing Follow-up No qualifying data available Patient Education Budget-Friendly Healthy Eati (more content not included)... Normal [facility] Comment on above: Result Comment: Elec tronically Signed By: MATHEW CARBALLO, CLIFF W\.br\Date and Time Signed: 09/13/22 09:17 EDT Patient Educationon 09-14-19 Patient Education Cardiovascular Hypertension, Adult High blood pressure (hypertension) is when the force of blood pumping through the arteries is too strong. The arteries are the blood vessels that carry blood from the heart throughout the body. Hypertension forces the heart to work harder to pump blood and may cause arteries to become narrow or stiff. Untreated or uncontrolled hypertension can lead to a heart attack, heart failure, a stroke, kidney disease, and other problems. A blood pressure reading consists of a higher number over a lower number. Ideally, your blood pressure should be below 120/80. The first ( top ) number is called the systolic pressure. It is a measure of the pressure in your arteries as your heart beats. The second ( bottom ) number is called the diastolic pressure. It is a measure of the pressure in your arteries as the heart relaxes. What are the causes? The exact cause of this condition is not known. There are some conditions that result in high blood pressure. What increases the risk? Certain factors may make you more likely to develop high blood pressure. Some of these risk factors are under your control, including: ? Smoking. ? Not getting enough exercise or physical activity. ? Being overweight. ? Having too much fat, sugar, calories, or salt (sodium) in your diet. ? Drinking too much alcohol. Other risk factors include: ? Having a personal history of heart disease, diabetes, high cholesterol, or kidney disease. ? Stress. ? Having a family history of high blood pressure and high cholesterol. ? Having obstructive sleep apnea. ? Age. The risk increases with age. What are the signs or symptoms? High blood pressure may not cause symptoms. Very high blood pressure (hypertensive crisis) may cause: ? Headache. ? Fast or irregular heartbeats (palpitations). ? Shortness of breath. ? Nosebleed. ? Nausea and vomiting. ? Vision changes. ? Severe chest pain, dizziness, and seizures. How is this diagnosed? This condition is diagnosed by measuring your blood pressure while you are seated, with your arm resting on a flat surface, your legs uncrossed, and your feet flat on the floor. The cuff of the blood pressure monitor will be placed directly against the skin of your upper arm at the level of your heart. Blood pressure should be measured at least twice using the same arm. Certain conditions can cause a difference in blood pressure between your right and left arms. If you have a high blood pressure reading during one visit or you have normal blood pressure with other risk factors, you may be asked to: ? Return on a different day to have your blood pressure checked again. ? Monitor your blood pressure at home for 1 week or longer. If you are diagnosed with hypertension, you may have other blood or imaging tests to help your health care provider understand your overall risk for other conditions. How is this treated? This condition is treated by making healthy lifestyle changes, such as eating healthy foods, exercising more, and reducing your alcohol intake. You may be referred for counseling on a healthy diet and physical activity. Your health care provider may prescribe medicine if lifestyle changes are not enough to get your blood pressure under control and if: ? Your systolic blood pressure is above 130. ? Your diastolic blood pressure is above 80. Your personal target blood pressure may vary depending on your medical conditions, your age, and other factors. Follow these instructions at home: Eating and drinking ? Eat a diet that is high in fiber and potassium, and low in sodium, added sugar, and fat. An example of this eating plan is called the DASH diet. DASH stands for Dietary Approaches to Stop Hypertension. To eat this way: ? Eat plenty of fresh fruits and vegetables. Try to fill one half of your plate at each meal with fruits and vegetables. ? Eat whole grains, such as whole-wheat pasta, brown rice, or whole-grain bread. Fill about one fourth of your plate with whole grains. ? Eat or drink low-fat dairy products, such as skim milk or low-fat yogurt. ? Avoid fatty cuts of meat, processed or cured meats, and poultry with skin. Fill about one fourth of your plate with lean proteins, such as fish, chicken without skin, beans, eggs, or tofu. ? Avoid pre-made and processed foods. These tend to be higher in sodium, added sugar, and fat. ? Reduce your daily sodium intake. Many people with hypertension should eat less than 1,500 mg of sodium a day. ? Do not drink alcohol if: ? Your health care provider tells you not to drink. ? You are , may be , or are planning to become . ? If you drink alcohol: ? Limit how much you have to: ? 0?1 drink a day for women. ? 0?2 drinks a day for men. ? Know how much alcohol is in your drink. In the [place] one drink equals one 12 oz bottle of beer (355 mL), one 5 oz glass of wine (148 mL), or one 1? oz glass (more content not included)... Normal [facility] Family Medicine Office/Clini c Noteon 08-09-2022 Family Medicine Office/Clinic Note HPI Staff Aubree is a 41 year old female who presents for a 2 week follow up in regards to chronic bilateral leg pain. She was started on Ropinirole 1mg at her last visit, which she has been taking as directed, without adverse effects. States the medication has given her quite a bit of relief, but the pain has not resolved entirely. She also has recent labs to review from 07/23/22. History of Present Illness I have reviewed and verified the staff HPI to be accurate for this encounter. She has had almost complete resolution in her pain. Her labs were reviewed. Her iron is low. Her vitamin D is extremely low. She has not started her supplementation yet. She would like to also restart her Vyvanse for her focus as well as her binge eating. Review of Systems PHQ Score Initial Depression Screen Score: 2 Constitutional: no fever, no chills, no sweats, no weakness Respiratory: no shortness of breath, no cough, no orthopnea, no wheezing Cardiovascular: no chest pain, no palpitations, no edema Additional ROS info: Except as noted in the above Review of Systems and in the History of Present Illness all other systems have been reviewed and are negative or noncontributory. Physical Exam Vitals & Measurements T: 36.2 ?C(Temporal Artery) HR: 80(Peripheral) BP: 138/88 SpO2: 99% HT: 66 in HT: 168 cm WT: 97.9 kg WT: 215.38 lb BMI: 34.69 General: She looks well. She is in no acute distress. Assessment/Plan 1. Bilateral leg pain (M79.604: Pain in right leg) This appears to be secondary to #2. Pain has resolved with treatment of the restless legs. We will we will cancel the PVR. 2. Restless legs (G25.81: Restless legs syndrome) She will continue the Requip. We did discuss the fact that iron deficiency and possibly vitamin D deficiency could have on this condition so she needs to start her supplementation. 3. Iron deficiency (E61.1: Iron deficiency) She needs to start supplementing with iron at least 3 times a week. 4. 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 She was advised she needs to follow-up every 3 months. 5. Vitamin D deficiency (E55.9: Vitamin D deficiency, unspecified) She also needs to start her vitamin D and preferably take it with magnesium for better absorption. Pain in left leg (M79.605: Pain in left leg) Follow-up With When Contact Information Dioni BACON DO, FAM In 3 months [address] [place] [phone] Additional Instructions: Problem List/Past Medical History Ongoing ADD (attention deficit disorder) without hyperactivity Amenorrhea Bilateral leg pain Borderline hypothyroidism Chronic daily headache Cigarette smoker Claudication Endometriosis History of endometrial ablation Hypertension Insulin resistance Iron deficiency Migraine headache 346.90 Mild depression Nerve pain Osteoarthritis of neck Restless legs Sleep apnea Vitamin D deficiency Historical Chronic back pain HTN - Hypertension Kidney stone Procedure/Surgical History Arthroscopy of shoulder (11/22/2019), Fasciotomy of foot (01/16/2017), Plantar fasciotomy (01/16/2017), diagnostic laparoscopy with fulguration of endometriosis (02/17/2013), Endometrial ablation (2009), Cholecystectomy (2004), Caesarean section (1999), Tubal ligation (1999), Appendectomy (1997), Tonsillectomy (1992), EGD, lithotripsy of Uniplaces, stone basket for kidney stone. Medications aripiprazole 2 mg Tab, 2 mg, Oral, Daily, 2 refills Holland Thyroid 30 mg Tab, 30 mg= 1 tab(s), Oral, Daily cetirizine 10 mg Tab, 10 mg= 1 tab(s), Oral, Daily, 3 refills Emgality Prefilled Pen 120 mg/mL subcutaneous solution, 120 mg, SubCutaneous, qMonth Excedrin Migraine, 2 tab(s), Oral, q6hr, PRN ferrous sulfate 325 mg oral enteric coated tablet, 325 mg= 1 tab(s), Oral, Daily hydrochlorothiazide-olmesartan 12.5 mg-20 mg oral tablet, 1 tab(s), Oral, Daily, 3 refills Magnesium Chloride 64, 1 tab, Oral, Bedtime, 1 refills omeprazole 20 mg Cap-DR, 20 mg= 1 cap(s), Oral, Daily, 1 refills Ozempic 2 mg/1.5 mL (0.25 mg or 0.5 mg dose) subcutaneous solution, 0.5 mg, SubCutaneous, qWeek, 5 refills Pepcid 40 mg Tab, 40 mg= 1 tab(s), Oral, Once a day (at bedtime), 2 refills rizatriptan 5 mg oral tablet, 5 mg= 1 tab(s), Oral, Daily, PRN, 1 refills ropinirole 1 mg Tab, 1 mg= 1 tab(s), Oral, Bedtime, 1 refills venlafaxine 150 mg Cap-ER, 150 mg= 1 cap(s), Oral, Daily, 1 refills Vitamin D3 5000 intl units oral capsule, 125 mcg= 1 cap(s), Oral, Daily Vyvanse 60 mg oral capsule, 60 mg= 1 cap(s), Oral, qAM Zofran ODT 4 mg Tab-Dis, 4 mg= 1 tab(s), Oral, q8hr, PRN Allergies sasonal allergies (itchy, watery,swollen eyes) penicillin (Hives) Social History Alcohol - Denies Alcohol Use, 02/03/2013 Past, Beer, 1-2 times per year, Household alc (more content not included)... Normal [facility] Comment on above: Result Comment: Elec tronically Signed By: Dioni BACON DO\.br\Date and Time Signed: 08/09/22 07:33 EDT Ambulatory Visit Summaryon 0 08-06-2022 Ambulatory Visit Summary AUBREE SEQUEIRA :1980 Visit Date:08/06/2022 Ambulatory Visit Instructions Your Care Team Attending Physician - Dioni BACON DO Primary Care Physician - Dioni BACON DO This Is Your Medications List cholecalciferol (Vitamin D3 5000 intl units oral capsule) ferrous sulfate (ferrous sulfate 325 mg oral enteric coated tablet) rizatriptan (rizatriptan 5 mg oral tablet) ropinirole (ropinirole 1 mg Tab) venlafaxine (venlafaxine 150 mg Cap-ER) Contact prescribing physician if questions or concerns APAP/ASA/caffeine (Excedrin Migraine) Misc Prescription (Magnesium Chloride 64) aripiprazole (aripiprazole 2 mg Tab) baclofen (baclofen 5 mg oral tablet) cetirizine (cetirizine 10 mg Tab) famotidine (Pepcid 40 mg Tab) galcanezumab (Emgality Prefilled Pen 120 mg/mL subcutaneous solution) hydrochlorothiazide-olmesartan (hydrochlorothiazide-olmesartan 12.5 mg-20 mg oral tablet) lisdexamfetamine (Vyvanse 60 mg oral capsule) omeprazole (omeprazole 20 mg Cap-DR) ondansetron (Zofran ODT 4 mg Tab-Dis) semaglutide (Ozempic 2 mg/1.5 mL (0.25 mg or 0.5 mg dose) subcutaneous solution) thyroid desiccated (Holland Thyroid 30 mg Tab) Procedures Performed Arthroscopy of shoulder (11/22/2019), Fasciotomy of foot (01/16/2017), Plantar fasciotomy (01/16/2017), diagnostic laparoscopy with fulguration of endometriosis (02/17/2013), Endometrial ablation (2009), Cholecystectomy (2004), Caesarean section (1999), Tubal ligation (1999), Appendectomy (1997), Tonsillectomy (1992), EGD, lithotripsy of kindney, stone basket for kidney stone. Discharge Vitals Temperature (Temporal Artery) 36.2 ?C Heart Rate (Peripheral) 80 Blood Pressure 146/98 Height 168 cm Height 66 in Weight 97.9 kg Weight 215.38 lb BMI 34.69 What to do next Scheduled Follow-Up Appointments Friday 10:00 AM EDT With: Dioni BACON DO Where: [facility] Family [facility] Coding Summary.on 07-31-2022 Coding Summary. [id number] [file] [id number] (more content not included)... Normal [facility] Family Medicine Office/Clini c Noteon 07-28-2022 Family Medicine Office/Clinic Note HPI Staff Aubree is a 41 year old female who presents for a 1 month follow up. She was seen in the office on 06/21/22 by Cliff Carmona in regards to bilateral leg pain. She was restarted Gabapentin 300mg BID. She tried taking the medication for 1 week without relief. Patient states the leg pain has been an ongoing issue for some time, states she has an undiagnosed nerve disorder. The pain is all over but mostly located in her legs. Recently they have become inflamed to the point that she has shooting pains while she is trying to sleep. History of Present Illness I have reviewed and verified the staff HPI to be accurate for this encounter. She has not had blood work yet Review of Systems PHQ Score Initial Depression Screen Score: 0 Constitutional: no fever, no chills, no sweats, no weakness Respiratory: no shortness of breath, no cough, no orthopnea, no wheezing Cardiovascular: no chest pain, no palpitations, no edema Additional ROS info: Except as noted in the above Review of Systems and in the History of Present Illness all other systems have been reviewed and are negative or noncontributory. Physical Exam Vitals & Measurements T: 36.2 ?C(Temporal Artery) HR: 94(Peripheral) BP: 126/72 SpO2: 98% HT: 66 in HT: 168 cm WT: 96.3 kg WT: 211.86 lb BMI: 34.12 General: alert, no acute distress Skin: warm, dry Head: no trauma, normocephalic Neck: Trachea midline, no adenopathy, no tenderness Eye: normal conjunctiva, sclera clear ENMT: TM's clear, oral mucosa moist, no pharyngeal erythema or exudate Cardiovascular: regular rate and rhythm, normal peripheral perfusion Respiratory: Lungs CTA, respirations non labored Chest wall: no deformity. Gastrointestinal: soft, non distended, no tenderness, no guarding. Back: No tenderness, Normal ROM, Normal alignment. Extremities: no deformity, no trauma Neurological: oriented x 4, LOC appropriate for age, CN II-XII intact, motor strength equal & normal bilaterally, sensation equal & normal bilaterally, speech normal Psychiatric: cooperative, affect appropriate for age, normal judgement, normal psychiatric thoughts. Assessment/Plan 1. Bilateral leg pain (M79.604: Pain in right leg) 2. Claudication (I73.9: Peripheral vascular disease, unspecified) 3. Restless legs (G25.81: Restless legs syndrome) 4. Borderline hypothyroidism (E03.8: Other specified hypothyroidism) 5. Iron deficiency (E61.1: Iron deficiency) Pain in left leg (M79.605: Pain in left leg) Follow-up No qualifying data available Problem List/Past Medical History Ongoing ADD (attention deficit disorder) without hyperactivity Amenorrhea Bilateral leg pain Borderline hypothyroidism Chronic daily headache Cigarette smoker Claudication Endometriosis History of endometrial ablation Hypertension Insulin resistance Iron deficiency Migraine headache 346.90 Mild depression Nerve pain Osteoarthritis of neck Restless legs Sleep apnea Historical Chronic back pain HTN - Hypertension Kidney stone Procedure/Surgical History Arthroscopy of shoulder (11/22/2019), Fasciotomy of foot (01/16/2017), Plantar fasciotomy (01/16/2017), diagnostic laparoscopy with fulguration of endometriosis (02/17/2013), Endometrial ablation (2009), Cholecystectomy (2004), Caesarean section (1999), Tubal ligation (1999), Appendectomy (1997), Tonsillectomy (1992), EGD, lithotripsy of kindney, stone basket for kidney stone. Medications aripiprazole 2 mg Tab, 2 mg, Oral, Daily, 2 refills Holland Thyroid 30 mg Tab, 30 mg= 1 tab(s), Oral, Daily baclofen 5 mg oral tablet, 5 mg= 1 tab(s), Oral, BID cetirizine 10 mg Tab, 10 mg= 1 tab(s), Oral, Daily, 3 refills Emgality Prefilled Pen 120 mg/mL subcutaneous solution, 120 mg, SubCutaneous, qMonth Excedrin Migraine, 2 tab(s), Oral, q6hr, PRN hydrochlorothiazide-olmesartan 12.5 mg-20 mg oral tablet, 1 tab(s), Oral, Daily, 3 refills Magnesium Chloride 64, 1 tab, Oral, Bedtime, 1 refills omeprazole 20 mg Cap-DR, 20 mg= 1 cap(s), Oral, Daily, 1 refills Ozempic 2 mg/1.5 mL (0.25 mg or 0.5 mg dose) subcutaneous solution, 0.5 mg, SubCutaneous, qWeek, 5 refills Pepcid 40 mg Tab, 40 mg= 1 tab(s), Oral, Once a day (at bedtime), 2 refills rizatriptan 5 mg oral tablet, 5 mg= 1 tab(s), Oral, Daily, PRN, 1 refills ropinirole 1 mg Tab, 1 mg= 1 tab(s), Oral, Bedtime venlafaxine 150 mg Cap-ER, 150 mg= 1 cap(s), Oral, Daily, 1 refills Vyvanse 60 mg oral capsule, 60 mg= 1 cap(s), Oral, qAM Zofran ODT 4 mg Tab-Dis, 4 mg= 1 tab(s), Oral, q8hr, PRN Allergies sasonal allergies (itchy, watery,swollen eyes) penicillin (Hives) Social History Alcohol - Denies Alcohol Use, 02/03/2013 Past, Beer, 1-2 times per year, Household alcohol concerns: No., 06/21/2022 Sexual Sexually active: Yes., 01/14/2019 Substance Abuse - Denies Substance Abuse, 05/05/2010 Tobacco - High Risk, 04/12/2019 10 or more cigarettes (1/2 pack or more)/day in last 30 (more content not included)... Normal [facility] Comment on above: Result Comment: Elec tronically Signed By: Dioni BACON DO\.br\Date and Time Signed: 07/27/22 22:56 EDT LIZBETH w/Reflex if POSon 2022 Nuclear Ab Ql (S) Negative Invalid Interpretation Code N egative [facility] Comment on above: Result Comment: Perf ormed at: [employer] [id number] PhD Aaliyah Villar Performed By: #### 2 [id number], [id number], [id number], [id number], [id number], [id number], [id number], [id number], [id number], [id number], [id number] ####[facility] [address] [place] [address] T3 Freeon 07-25-2022 Free T3 [Mass/Vol] 2.7 pg/mL Invalid Interpretation Code 2.0-4.4 [facility] Comment on above: Result Comment: Perf ormed at: [facility] [id number] [place], [place] [id number] PhD Aaliyah Villar Performed By: #### 2 [id number], [id number], [id number], [id number], 3449223, 9379522, [id number], 1857077, [id number], [id number] ####[facility] [id number] [place] [address] Ambulatory Visit Summaryon 0 07-23-2022 Ambulatory Visit Summary AUBREE SEQUEIRA :1980 Visit Date:07/23/2022 Ambulatory Visit Instructions Your Diagnosis Bilateral leg pain Claudication Restless legs Borderline hypothyroidism Iron deficiency Pain in left leg Your Care Team Attending Physician - Dioni BACON DO Primary Care Physician - Dioni BACON DO This Is Your Medications List baclofen (baclofen 5 mg oral tablet) ropinirole (ropinirole 1 mg Tab) Contact prescribing physician if questions or concerns APAP/ASA/caffeine (Excedrin Migraine) Misc Prescription (Magnesium Chloride 64) aripiprazole (aripiprazole 2 mg Tab) cetirizine (cetirizine 10 mg Tab) famotidine (Pepcid 40 mg Tab) galcanezumab (Emgality Prefilled Pen 120 mg/mL subcutaneous solution) hydrochlorothiazide-olmesartan (hydrochlorothiazide-olmesartan 12.5 mg-20 mg oral tablet) lisdexamfetamine (Vyvanse 60 mg oral capsule) omeprazole (omeprazole 20 mg Cap-DR) ondansetron (Zofran ODT 4 mg Tab-Dis) rizatriptan (rizatriptan 5 mg oral tablet) semaglutide (Ozempic 2 mg/1.5 mL (0.25 mg or 0.5 mg dose) subcutaneous solution) thyroid desiccated (Holland Thyroid 30 mg Tab) venlafaxine (venlafaxine 150 mg Cap-ER) [Image Removed: STOP]Stop taking these medications betamethasone topical (betamethasone dipropionate topical 0.05% cream) fluticasone nasal (fluticasone 0.05 mg/inh Nasal [place]) gabapentin (gabapentin 300 mg Cap) metformin (metformin 500 mg oral tablet) pantoprazole (pantoprazole 40 mg Oral EC Tab) thyroid desiccated (Holland Thyroid 60 mg Tab) Procedures Performed Arthroscopy of shoulder (11/22/2019), Fasciotomy of foot (01/16/2017), Plantar fasciotomy (01/16/2017), diagnostic laparoscopy with fulguration of endometriosis (02/17/2013), Endometrial ablation (2009), Cholecystectomy (2004), Caesarean section (1999), Tubal ligation (1999), Appendectomy (1997), Tonsillectomy (1992), EGD, lithotripsy of lakshmi, stone basket for kidney stone. Discharge Vitals Temperature (Temporal Artery) 36.2 ?C Heart Rate (Peripheral) 94 Blood Pressure 126/72 Height 168 cm Height 66 in Weight 96.3 kg Weight 211.86 lb BMI 34.12 What to do next You Need to Complete the Following LIZBETH w/Reflex if POS, Blood, Routine collect, 07/23/22, Order for future visit, Lab Collect, Bilateral leg pain Invalid Interpretation Code Restless legs [facility] Auto Diffon 07-23-2022 Basophils/100 WBC (Bld) 0.7 % Normal 0.0-2.0 [facility] Comment on above: Order Comment: Order Added by Discern Expert. Performed By: #### 2 [id number], [id number], [id number], [id number], 1414022, 6141521, 5206515, 5555678, 4739877, [id number] ####[facility] [address] [place] [address] Basophils/Leukocytes Auto (B ld) [Pure # fraction] 0.1 E9/L Normal 0.0-0.2 [facility] Comment on above: Order Comment: Order Added by Discern Expert. Performed By: #### 2 [id number], [id number], [id number], [id number], [id number], 2921259, 9609155, 3823402, 6506966, 5986214, 9674144 ####[facility] [address] [place] [address] Eosinophils/100 WBC (Bld) 2.5 % Normal 0.0-8.0 [facility] Comment on above: Order Comment: Order Added by Discern Expert. Performed By: #### 2 [id number], [id number], [id number], [id number], 10426432, 2594155, 0385138, 2072601, 4416097, 1616776, 8803769 ####[facility] [address] [place] [address] Eosinophils/Leukocytes Auto (Bld) [Pure # fraction] 0.3 E9/L Normal 0.0-0.5 [facility] Comment on above: Order Comment: Order Added by Discern Expert. Performed By: #### 2 [id number], [id number], [id number], [id number], [id number], 0348681, 9887897, 5669730, 5859275, 8509777, 8205093 ####[facility] [address] [place] [address] Lymphocytes/100 WBC (Bld) 29.3 % Normal 14.0-50.0 [facility] Comment on above: Order Comment: Order Added by Discern Expert. Performed By: #### 2 846677, [id number], [id number], [id number], 65960644, 0814205, 9074119, 9926350, 9691451, 7817005, 1947085 ####[facility] [address] [place] [address] Lymphocytes/Leukocytes Auto (Bld) [Pure # fraction] 3.1 E9/L Normal 1.0-4.0 [facility] Comment on above: Order Comment: Order Added by Discern Expert. Performed By: #### 2 806409, 1503102, 18546057, [id number], 98831152, 8335175, 9664976, 4886803, 8579401, 1568655, 7581576 ####[address] [place] [address] Monocytes/100 WBC (Bld) 4.2 % Normal 4.0-14.0 [facility] Comment on above: Order Comment: Order Added by Discern Expert. Performed By: #### 2 [id number], 1488199, [id number], [id number], 53190023, 6763693, 1042992, 1600297, 0852307, 2153303, 6547664 ####[facility] [address] [place] [address] Monocytes/Leukocytes Auto (B ld) [Pure # fraction] 0.4 E9/L Normal 0.2-1.0 [facility] Comment on above: Order Comment: Order Added by Discern Expert. Performed By: #### 2 594848, 6358123, 74599669, 114932355, 42978207, 7282504, 8718917, 2867102, 1728681, 0770632, 5434699 ####[facility] [address] [place] [address] Neutrophils/100 WBC (Bld) 63.3 % Normal 36.0-75.0 [facility] Comment on above: Order Comment: Order Added by Discern Expert. Performed By: #### 2 394828, 4205183, 07212429, 057938523, 78402049, 7197109, 6846756, 6656513, 4905897, 1013197, 1285282 ####[facility] [address] [place] [address] Neutrophils/Leukocytes Auto (Bld) [Pure # fraction] 6.7 E9/L Normal 2.0-7.5 [facility] Comment on above: Order Comment: Order Added by Discern Expert. Performed By: #### 2 428155, 2895980, 04136263, 038793655, 98259844, 7936895, 1394685, 8299596, 2303174, 2221544, 4827616 ####[address] [place] [address] CBC w/ Auto Diffon 3 Erythrocyte distribution wid th (RBC) [Ratio] 14.1 % Normal 10.9-14.2 [facility] Comment on above: Performed By: #### 2 920854, 9872339, 18292541, 902352909, 38063771, 9457735, 5789039, 1962327, 7542253, 4615145, 6463961 ####[facility] [address] [place] [address] Hematocrit (Bld) [Volume fraction] 40.9 % Normal 34.0-46.0 [facility] Comment on above: Performed By: #### 2 058281, 8138986, 34660768, 681165834, 55354974, 4560469, 3772153, 1755588, 9981663, 8974381, 6458131 ####[facility] [address] [place] [address] Hemoglobin (Bld) [Mass/Vol] 13.8 g/dL Normal 12.0-16. 0 [facility] Comment on above: Performed By: #### 2 267264, 0642300, 50690011, 000328617, 35000345, 6730795, 3882610, 4027471, 4806259, 9019317, 5756060 ####[facility] [address] [place] [address] MCH (RBC) [Entitic mass] 27.8 pg Normal 27.0-34.0 [facility] Comment on above: Performed By: #### 2 339793, 0653355, 37454231, 507128349, 00027966, 9380730, 6636525, 5096684, 6225053, 5862335, 0539967 ####[facility] [address] [place] [address] MCHC (RBC) [Mass/Vol] 33.9 g/dL Normal 31.4-36.0 [facility] Comment on above: Performed By: #### 2 062024, 9965544, 85225560, 202329540, 21021578, 1640099, 4624828, 1405655, 4746093, 4435971, 6323367 ####[facility] [address] [place] [address] MCV (RBC) [Entitic vol] 82.0 fL Normal 80.0-100.0 [facility] Comment on above: Performed By: #### 2 476948, 2728639, 43773676, 446215713, 56650123, 3162927, 0813231, 9522193, 2625599, 1979813, 0462411 ####[facility] [address] [place] [address] Platelet mean volume (Bld) [Entitic vol] 7.4 fL Normal 6.4-10.8 [facility] Comment on above: Performed By: #### 2 139723, 4667480, 85516458, 848592513, 54008525, 8715467, 4363645, 1908765, 6748342, 8102461, 2313410 ####[facility] [address] [place] [address] Platelets (Bld) [#/Vol] 396.0 E9/L Normal 150.0-500.0 [facility] Comment on above: Performed By: #### 2 239415, 9869159, 62975161, 295413742, 49321972, 8417340, 7774613, 8169493, 0249026, 4789173, 0033190 ####[facility] [address] [place] [address] RBC (Bld) [#/Vol] 5.0 E12/L Normal 4.3-5.9 [facility] Comment on above: Performed By: #### 2 111575, 6959289, 01439011, 420232740, 26738742, 7591006, 1131906, 8005751, 8438431, 3865366, 2367480 ####[address] [place] [address] WBC corrected for nucl RBC A uto (Bld) [#/Vol] 10.6 E9/L Normal 4.0-11.0 [facility] Comment on above: Performed By: #### 2 696718, 9492989, 90977329, 277112725, 01110286, 4135099, 6094735, 4776364, 7680617, 4548448, 0401927 ####[facility] [address] [place] [address] CMPon 07-23-2022 Albumin [Mass/Vol] 4.0 g/dL Normal 3.3-5.0 [facility] Comment on above: Performed By: #### 2 525539, 6725219, 74131511, 714532911, 16237701, 2014223, 9857767, 0696146, 4782405, 0144645, 7883616 ####[facility] [address] [place] [address] Albumin/Globulin (S) [Mass conc ratio] 1.2 Normal 1.1-2.2 [facility] Comment on above: Performed By: #### 2 595850, 1907175, 01423722, 091341744, 35368549, 6000548, 2278969, 8578773, 2141633, 4276015, 4739820 ####[facility] [address] [place] [address] ALP [Catalytic activity/Vol] 67 Int._Unit/L Normal 21- 98 [facility] Comment on above: Performed By: #### 2 546356, 6926839, 89203193, 068682589, 79953900, 6850824, 2461078, 1613810, 0007158, 4160904, 0679443 ####[facility] [address] [place] [address] ALT No additional P-5'-P [Catalytic activity/Vol] 23 Int._Unit/L Normal 6-46 [facility] Comment on above: Performed By: #### 2 006367, 1762022, 39594868, 119009594, 30273177, 2028837, 9213123, 7764401, 8656647, 9218047, 8395857 ####[facility] [address] [place] [address] Anion gap [Moles/Vol] 13 mmol/L Normal 6-16 [facility] Comment on above: Performed By: #### 2 222741, 8551376, 89205704, 074858243, 90014960, 9501700, 2441369, 9228081, 9156955, 1649117, 7983504 ####[facility] [address] [place] [address] AST [Catalytic activity/Vol] 19 Int._Unit/L Normal 5-4 3 [facility] Comment on above: Performed By: #### 2 902651, 6565853, 13643133, 218273014, 17965483, 5169931, 8610633, 4841387, 6647129, 6692430, 3520918 ####[facility] [address] [place] [address] Bilirubin [Mass/Vol] 0.4 mg/dL Normal 0.0-1.1 [facility] Comment on above: Performed By: #### 2 321435, 9601181, 28942739, 526524455, 97690950, 0082118, 0947170, 2962976, 5316526, 7230026, 6790592 ####[facility] [address] [place] [address] Calcium [Mass/Vol] 8.5 mg/dL Low 8.9-11.1 [facility] Comment on above: Performed By: #### 2 401691, 9792559, 70697296, 942060263, 44920774, 0237289, 7368803, 8504426, 0237991, 7853302, 2276144 ####[facility] [address] [place] [address] Chloride [Moles/Vol] 101 mmol/L Normal 101-111 [facility] Comment on above: Performed By: #### 2 750676, 3271086, 99917343, 432435545, 75691038, 5097015, 9286776, 5936557, 6831556, 5346672, 1563494 ####[facility] [address] [place] [address] CO2 [Moles/Vol] 26 mmol/L Normal 21-31 [facility] Comment on above: Performed By: #### 2 863994, 8585741, 11159725, 663165468, 86054065, 5940044, 8205296, 2909610, 7094633, 9505244, 9270732 ####[facility] [address] [place] [address] Creatinine [Mass/Vol] 0.8 mg/dL Normal 0.5-1.3 [facility] Comment on above: Performed By: #### 2 125014, 8810275, 47084319, 869435897, 19474933, 6403802, 4889400, 0919707, 2746903, 5896307, 1905048 ####[facility] [address] [place] [address] Globulin (S) [Mass/Vol] 3.2 g/dL Normal 1.4-4.0 [facility] Comment on above: Performed By: #### 2 839413, 2470922, 09187008, 843254516, 41244119, 4279291, 8580220, 9028780, 3710304, 0634680, 1128903 ####[facility] [address] [place] [address] Glucose [Mass/Vol] 97 mg/dL Normal 55-199 [facility] Comment on above: Result Comment: If t his glucose result represents a fasting glucose, interpretation should refer to the following reference range: 55-99 mg/dL Performed By: #### 2 557479, 3874602, 07376191, 381509512, 97932253, 4503719, 7892395, 6879394, 3730499, 8674780, 0740782 ####[facility] [address] [place] [address] Potassium [Moles/Vol] 3.9 mmol/L Normal 3.5-5.3 [facility] Comment on above: Performed By: #### 2 865132, 3995609, 39318178, 796895566, 94950045, 3107944, 7295223, 4060145, 9808874, 4090376, 0403626 ####[facility] [address] [place] [address] Protein [Mass/Vol] 7.2 g/dL Normal 6.0-7.8 [facility] Comment on above: Performed By: #### 2 687425, 2339978, 15468464, 439002652, 80018374, 1061651, 2753405, 0746430, 1101827, 9575067, 6670371 ####[facility] [address] [place] [address] Sodium [Moles/Vol] 136 mmol/L Normal 135-145 [facility] Comment on above: Performed By: #### 2 195467, 7733694, 93687169, 757237554, 21710904, 2660197, 3679979, 8353280, 1829196, 2797326, 5604207 ####[facility] [address] [place] [address] Urea nitrogen [Mass/Vol] 7 mg/dL Normal 5-21 [facility] Comment on above: Performed By: #### 2 717010, 5108172, 51904329, 490567583, 36651822, 9143845, 5489966, 5748224, 0018511, 3770258, 4312873 ####[facility] [address] [place] [address] Urea nitrogen/Creatinine [Mass ratio] 9 No Units Low 10-20 [facility] Comment on above: Performed By: #### 2 053859, 5650936, 80059769, 196470862, 19864432, 4043853, 6115406, 4078964, 1352372, 4253880, 4997472 ####[facility] [address] [place] [address] Consent for Treatmenton 07-10 Consent for Treatment [id number] Normal [facility] Family Medicine Office/Clini c Noteon 07-23-2022 Family Medicine Office/Clinic Note Chief Complaint leg pain, vomiting HPI Staff Aubree is a 41 year old female who presents for vomiting and leg pain. States the pain is starting to get unbearable and is keeping her up at HS. States this is ongoing for the last few weeks. Has taken IBU to help and does not get any relief. Denies any numbness or tingling. Feels the pain is in her bones. Also has been having stomach issues for the last 2 months. Claims it comes and goes. At times has abd pain/cramping and then vomits out of no where. Does admit to eating late at night and will lay down afterwards. Pain is more epigastric. Is very gassy but claims he has always been. Has taken antacids with no relief. Denies any issues with bowels. Also wants to discuss her mood. States she does take Effexor and thinks she needs something more to help her. States she has a poor quality of life, just works and sleeps. is starting to effect her eating and sleeping, socializing. forces herself to get up and work. Was on Abilify in the past and feels this did help. Was on if for 2 months and stopped it due to having too much medication at the time. Has no SI. States she recently stopped taking her thyroid medication. Claims she was to take 1/2 tab of her 60mg [place]. Claims she has not been able to cut them in half so she just stopped it. Has not been on anything in the last 4 months. History of Present Illness I have reviewed and verified the staff HPI to be accurate for this encounter. Patient's leg pain has been an ongoing issue for some time, states she has an undiagnosed nerve disorder. The pain is all over but mostly located in her legs. Recently they have become inflamed to the point that she has shooting pains while she is trying to sleep. She does take Effexor which has been helping, however does state moods have been worsening a time and is wondering if there is anything else that may help as the Effexor did when she first started it such as Abilify as this did help in the past, patient did quit the Abilify as she was told to cut back on medications she felt she was on too many.. The neurologist wanted to prescribe her gabapentin, but was having some issues with increased fatigue/tiredness on the medication therefore stopped. She is interested in restarting as the pain is becoming much worse.. She explains that they wanted to prescribe her various kinds of medications to treat; although, she notes that she is already a sleepy person and does not want to take any medications that would cause drowsiness. Has received B12 injections in the past. Abdominal pain/discomfort has been going on for several months as noted above. Mostly epigastric in nature, denies any significant worsening with eating however there is exacerbation noted nocturnally. She denies any diarrhea or constipation. Denies any GI bleeding noted. Review of Systems PHQ Score Initial Depression Screen Score: 0 ROS - Provider Constitutional: fever no, chills no, sweats no, weakness no Skin: rash no, lesions no, petechiae no Eye: eye pain no, discharge no, light sensitivity no, eye irritation no, double vision no, blurring no, vision loss no ENMT: ear pain no, ear drainage no, sore throat no, nasal congestion no , nasal drainage no hoarseness no Respiratory: chest discomfort no, shortness of breath no, cough no, orthopnea no, wheezing no Cardiovascular: chest pain no, palpitations no, edema no Gastrointestinal: nausea yes, vomiting yes, diarrhea no, GI bleeding no Genitourinary: dysuria no, hematuria no, discharge no, urinary frequency no, urinary urgency no Musculoskeletal: Bilateral leg pain yes, trauma no Neurologic: headache no, dizziness no, numbness/tingling no, weakness no Physical Exam Vitals & Measurements T: 36.8 ?C(Temporal Artery) HR: 80(Peripheral) BP: 164/100 SpO2: 97% HT: 66 in HT: 168 cm WT: 90 kg WT: 198 lb BMI: 31.89 General: Well developed, well nourished, in no acute distress Nose: No deformity, discharge, inflammation, or lesions Mouth: Mucous membranes moist. Normal oropharynx, and posterior pharynx without lesions or exudates. Tongue normal Neck: Neck supple. No masses or palpable cervical nodes. Trachea midline. Thyroid without nodules, masses, tenderness, or enlargement Lungs: Normal respiratory effort and clear to auscultation Cardio: Regular rate and rhythm, normal S1 and S2, no murmur, no rub Abdomen: Soft, non-distended, non-tender to palpation, No rebound or guarding, tenderness, No masses palpated, Normal bowel sounds. Mondragon's sign negative, Rovsing's sign negative Musculoskeletal: No deformity noted. Normal range of motion. Joints normal. No erythema, edema, effusion, or ecchymosis Extremity: No clubbing, cyanosis, edema, or deformity, with normal ROM in both upper and lower bilateral extremities Neurologic: Grossly normal Skin: No rashes, ulcerations, or suspicious lesions to visible skin Mental Status: Alert and oriented x3. Normal mood and affect Assessment/Plan (more content not included)... Normal [facility] Comment on above: Result Comment: Elec tronically Signed By: MATHEW CARBALLO, CLIFF Mendoza\.br\Date and Time Signed: 07/23/22 08:15 EDT Ferritinon 07-23-2022 Ferritin [Mass/Vol] 18 ng/mL Normal 11-307 [facility] Comment on above: Result Comment: NORM ALS MEN <30 YRS 16-132 ng/mL MEN >30 YRS 8-338 ng/mL WOMEN (PREMEN) 6-104 ng/mL WOMEN (POSTMEN) 12-210 ng/mL Performed By: #### 2 719176, 4138640, 48281915, 555239886, 92130555, 3056728, 2804844, 5472393, 7932821, 7749530, 1845326 ####[facility] [address] [place] [address] Free T4on 07-23-2022 Free T4 [Mass/Vol] 0.89 ng/dL Normal 0.58-1.64 [facility] Comment on above: Performed By: #### 2 058195, 5661805, 28144423, 966754318, 79697217, 6719751, 1844799, 0218051, 9158513, 9396395, 9868030 ####[facility] [address] [place] [address] Ironon 07-23-2022 Iron [Mass/Vol] 54 microgram/dL Normal 35-153 [facility] Comment on above: Performed By: #### 2 715505, 8046966, 31263324, 332435398, 14607386, 9237288, 5093555, 6619914, 6134402, 4869273, 9319979 ####[facility] [address] [place] [address] Patient Educationon 07-24-19 Patient Education Endocrinology Hypothyroidism Hypothyroidism is when the thyroid gland does not make enough of certain hormones (it is underactive). The thyroid gland is a small gland located in the lower front part of the neck, just in front of the windpipe (trachea). This gland makes hormones that help control how the body uses food for energy (metabolism) as well as how the heart and brain function. These hormones also play a role in keeping your bones strong. When the thyroid is underactive, it produces too little of the hormones thyroxine (T4) and triiodothyronine (T3). What are the causes? This condition may be caused by: ? Emilee's disease. This is a disease in which the body's disease-fighting system (immune system) attacks the thyroid gland. This is the most common cause. ? Viral infections. ? . ? Certain medicines. ? defects. ? Past radiation treatments to the head or neck for cancer. ? Past treatment with radioactive iodine. ? Past exposure to radiation in the environment. ? Past surgical removal of part or all of the thyroid. ? Problems with a gland in the center of the brain (pituitary gland). ? Lack of enough iodine in the diet. What increases the risk? You are more likely to develop this condition if: ? You are female. ? You have a family history of thyroid conditions. ? You use a medicine called lithium. ? You take medicines that affect the immune system (immunosuppressants). What are the signs or symptoms? Symptoms of this condition include: ? Feeling as though you have no energy (lethargy). ? Not being able to tolerate cold. ? Weight gain that is not explained by a change in diet or exercise habits. ? Lack of appetite. ? Dry skin. ? Coarse hair. ? Menstrual irregularity. ? Slowing of thought processes. ? Constipation. ? Sadness or depression. How is this diagnosed? This condition may be diagnosed based on: ? Your symptoms, your medical history, and a physical exam. ? Blood tests. You may also have imaging tests, such as an ultrasound or MRI. How is this treated? This condition is treated with medicine that replaces the thyroid hormones that your body does not make. After you begin treatment, it may take several weeks for symptoms to go away. Follow these instructions at home: ? Take nbfq-zbv-bjgurwm and prescription medicines only as told by your health care provider. ? If you start taking any new medicines, tell your health care provider. ? Keep all follow-up visits as told by your health care provider. This is important. ? As your condition improves, your dosage of thyroid hormone medicine may change. ? You will need to have blood tests regularly so that your health care provider can monitor your condition. Contact a health care provider if: ? Your symptoms do not get better with treatment. ? You are taking thyroid replacement medicine and you: ? Sweat a lot. ? Have tremors. ? Feel anxious. ? Lose weight rapidly. ? Cannot tolerate heat. ? Have emotional swings. ? Have diarrhea. ? Feel weak. Get help right away if you have: ? Chest pain. ? An irregular heartbeat. ? A rapid heartbeat. ? Difficulty breathing. Summary ? Hypothyroidism is when the thyroid gland does not make enough of certain hormones (it is underactive). ? When the thyroid is underactive, it produces too little of the hormones thyroxine (T4) and triiodothyronine (T3). ? The most common cause is Emilee's disease, a disease in which the body's disease-fighting system (immune system) attacks the thyroid gland. The condition can also be caused by viral infections, medicine, , or past radiation treatment to the head or neck. ? Symptoms may include weight gain, dry skin, constipation, feeling as though you do not have energy, and not being able to tolerate cold. ? This condition is treated with medicine to replace the thyroid hormones that your body does not make. This information is not intended to replace advice given to you by your health care provider. Make sure you discuss any questions you have with your health care provider. Document Released: 04/28/2006 Document Revised: 04/10/2018 Document Reviewed: 04/08/2018 [employer] Patient Education ? 2020 [employer] Gastroenterology Abdominal Pain, Adult Many things can cause belly (abdominal) pain. Most times, belly pain is not dangerous. Many cases of belly pain can be watched and treated at home. Sometimes, though, belly pain is serious. Your doctor will try to find the cause of your belly pain. Follow these instructions at home: Medicines ? Take xtkj-qra-mjvsabf and prescription medicines only as told by your doctor. ? Do not take medicines that help you poop (laxatives) unless told by your doctor. General instructions ? Watch your belly pain for any changes. ? Drink enough fluid to keep your pee (urine) pale yellow. ? Keep all fo (more content not included)... Normal [facility] TSHon 07-23-2022 TSH Qn 1.04 m[IU]/L Normal 0.34-5.60 [facility] Comment on above: Performed By: #### 2 208668, 9486771, 74726613, 372108434, 49461035, 6471933, 3654359, 0824379, 8955903, 2285627, 9760078 ####[facility] [address] [place] [address] Vitamin D 25 Hydroxyon 07-23 25-hydroxyvitamin D3 [Mass/Vol] 9.3 ng/mL Low 30.0 -100.0 [facility] Comment on above: Result Comment: Vit bishop D deficiency has been defined as a level of serum 25-OH vitamin D less than 20 ng/mL (1,2) by the [employer] of [employer] and an Endocrine Society practice guideline. The Endocrine Society further defined vitamin D insufficiency as a level between 21 and 29 ng/mL (2). 1. IOM ([employer] of Medicine). 2010. Dietary reference intakes for calcium and D. [place]: The National Academies Press. 2. Rohit MF, Jodi NC, Nilton-Deven DALY, et al. Evaluation, treatment, and prevention of vitamin D deficiency: an Endocrine Society clinical practice guideline. JCEM. 2010; 96 (7):1911-30. Performed By: #### 2 732796, 1791430, 10056674, 994246328, 86722604, 5802724, 4623811, 4799686, 5988738, 3910032, 3858177 ####[facility] [address] [place] [address] eGFRon 07-23-2022 GFR/1.73 sq M.predicted chase g blacks MDRD (S/P/Bld) [Vol rate/Area] mL/min/{1.73_m2} Normal >=59 [facility] Comment on above: Order Comment: Order added by Discern Expert. Result Comment: eGFR is race adjusted. AA=. Performed By: #### 2 704319, 8654063, 16573746, 077165503, 06886879, 6970001, 2639279, 0961121, 1528555, 2998550, 7413371 ####[facility] [address] [place] [address] GFR/1.73 sq M.predicted chase g non-blacks MDRD (S/P/Bld) [Vol rate/Area] mL/min/{1.73_m2} Normal >=59 [facility] Comment on above: Order Comment: Order added by Discern Expert. Result Comment: Purchasing Specialist norman kidney disease could be indicated at eGFR's of less than 60 mL/min/1.73m2. Kidney failure is indicated at less than 15 mL/min/1.73m2. Performed By: #### 2 034161, 6334164, 27564215, 152854770, 41436941, 6588209, 7307371, 9097277, 7283191, 1732046, 7025277 ####[facility] [address] [place] [address] Ambulatory Visit Summaryon 0 06-21-2022 Ambulatory Visit Summary AUBREE SEQUEIRA :1980 Visit Date:12/05/2021 Ambulatory Visit Instructions Your Diagnosis ADD (attention deficit disorder) without hyperactivity Your Care Team Primary Care Physician - Dioni BACON DO This Is Your Medications List hydrochlorothiazide-olmesartan (hydrochlorothiazide-olmesartan 12.5 mg-20 mg oral tablet) lisdexamfetamine (Vyvanse 60 mg oral capsule) ondansetron (Zofran ODT 4 mg Tab-Dis) rizatriptan (rizatriptan 5 mg oral tablet) thyroid desiccated ([place] Thyroid 60 mg Tab) Contact prescribing physician if questions or concerns APAP/ASA/caffeine (Excedrin Migraine) Misc Prescription (Magnesium Chloride 64) aripiprazole (aripiprazole 2 mg Tab) betamethasone topical (betamethasone dipropionate topical 0.05% cream) cetirizine (cetirizine 10 mg Tab) famotidine (Pepcid 40 mg Tab) fluticasone nasal (fluticasone 0.05 mg/inh Nasal [place]) galcanezumab (Emgality Prefilled Pen 120 mg/mL subcutaneous solution) metformin (metformin 500 mg oral tablet) omeprazole (omeprazole 20 mg Cap-DR) pantoprazole (pantoprazole 40 mg Oral EC Tab) semaglutide (Ozempic 2 mg/1.5 mL (0.25 mg or 0.5 mg dose) subcutaneous solution) thyroid desiccated ([place] Thyroid 30 mg Tab) venlafaxine (venlafaxine 150 mg Cap-ER) [Image Removed: STOP]Stop taking these medications cephalexin (Keflex 500 mg Cap) Procedures Performed Arthroscopy of shoulder (11/22/2019), Fasciotomy of foot (01/16/2017), Plantar fasciotomy (01/16/2017), diagnostic laparoscopy with fulguration of endometriosis (02/17/2013), Endometrial ablation (2009), Cholecystectomy (2004), Caesarean section (1999), Tubal ligation (1999), Appendectomy (1997), Tonsillectomy (1992), EGD, lithotripsy of lakshmi, stone basket for kidney stone. What to do next Scheduled Follow-Up Appointments Friday 3:40 PM EDT With: Dioni BACON DO Where: [facility] [place] Normal Pain in female genitalia on intercourse, US transvaginal if indicated, pp_set_radiology_subspecialty, [facility]\.br\ Medications\.br\ What How Much When Why Instructions\.br\ New hydrochlorothiazide-olmesartan (hydrochlorothiazide-olmesartan 12.5 mg-20 mg oral tablet) 1 Tablets By Mouth Every day Refills: 3 Pickup at [facility]\.br\ New rizatriptan (rizatriptan 5 mg oral tablet) 1 Tablets By Mouth Every day as needed for for migraine headache Refills: 1 may repeat dose every 2 hours up to a maximum of 3 doses in 24 hours Pickup at [facility]\.br\ New thyroid desiccated (Holland Thyroid 60 mg Tab) 0.5 By Mouth Every day Refills: 4 Pickup at [facility]\.br\ Changed lisdexamfetamine (Vyvanse 60 mg oral capsule) 1 Capsules By Mouth Once a day (in the morning) ADD (attention deficit disorder) without hyperactivity 30 days. Can fill when due. Pickup at [facility]\.br\ Unchanged ondansetron (Zofran ODT 4 mg Tab-Dis) 1 Tablets By Mouth Every 8 hours as needed for Nausea/Vomiting\.br\ Unchanged APAP/ ASA/ caffeine (Excedrin Migraine) 2 Tablets By Mouth Every 6 hours as needed for Migraine headache Contact prescribing physician if questions or concerns \.br\ Unchanged aripiprazole (aripiprazole 2 mg Tab) 2 Milligram By Mouth Every day Contact prescribing physician if questions or concerns \.br\ Unchanged betamethasone topical (betamethasone dipropionate topical 0.05% cream) 1 Application Topical 2 times a day Contact prescribing physician if questions or concerns \.br\ Unchanged cetirizine (cetirizine 10 mg Tab) 1 Tablets By Mouth Every day Contact prescribing physician if questions or concerns \.br\ Unchanged famotidine (Pepcid 40 mg Tab) 1 Tablets By Mouth Once a day (at bedtime) Contact prescribing physician if questions or concerns \.br\ Unchanged fluticasone nasal (fluticasone 0.05 mg/ inh Nasal [place]) 2 Sprays Nasal Inhalation Every day each nostril Contact prescribing physician if questions or concerns \.br\ Unchanged galcanezumab (Emgality Prefilled Pen 120 mg/ mL subcutaneous solution) 120 Milligram Subcutaneous Once a month [id number] Contact prescribing physician if questions or concerns \.br\ Unchanged metformin (metformin 500 mg oral tablet) 1 Tablets By Mouth 2 times a day Contact prescribing physician if questions or concerns \.br\ Unchanged Misc Prescription (Magnesium Chloride 64) 1 tab By Mouth At bedtime Contact prescribing physician if questions or concerns \.br\ Unchanged omeprazole (omeprazole 20 mg Cap-DR) 1 Capsules By Mouth Every day Contact prescribing physician if questions or concerns \.br\ Unchanged pantoprazole (pantoprazole 40 mg Oral EC Tab) 1 Tablets By Mouth Every day Contact prescribing physician if questions or concerns \.br\ Unchanged semaglutide (Ozempic 2 mg/ 1.5 mL (0.25 mg or 0.5 mg dose) subcutaneous solution) 0.5 Milligram Subcutaneous Every week Contact prescribing physician if questions or concerns \.br\ Unchanged thyroid desiccated (Holland Thyroid 30 mg Tab) 1 Tablets By Mouth Every day Contact prescribing physician if questions or concerns \.br\ Unchanged venlafaxine (venlafaxine 150 mg Cap-ER) 1 Capsules By Mouth Every day Contact prescribing physician if questions or concerns \.br\ Pharmacy Information\.br\ [facility]: [address], [place] [id number] [phone]\.br\ \.br\ What How Much When Comments\.br\ Stop Taking cephalexin (Keflex 500 mg Cap) 1 Capsules By Mouth Every 12 hours\.br\ Allergies\.br\ sasonal allergies (itchy, watery,swollen eyes)\.br\ penicillin (Hives)\.br\ Problems\.br\ Ongoing - Any problem that you are currently receiving treatment for.\.br\ ADD (attention deficit disorder) without hyperactivity\.br\ Amenorrhea\.br\ Bleeding after intercourse\.br\ Borderline hypothyroidism\.br\ Chronic daily headache\.br\ Cigarette smoker\.br\ Endometriosis\.br\ Epigastric pain\.br\ History of endometrial ablation\.br\ Hypertension\.br\ Insulin resistance\.br\ Left otitis media\.br\ Migraine headache 346.90\.br\ Mild depression\.br\ Mood swings\.br\ Nerve pain\.br\ Osteoarthritis of neck\.br\ Pain in female genitalia on intercourse\.br\ Poor concentration\.br\ Screening breast examination\.br\ Sleep apnea\.br\ Vomiting and diarrhea\.br\ Women's annual routine gynecological examination\.br\ Historical - Any problem that you are no longer receiving treatment for.\.br\ Chronic back pain\.br\ HTN - Hypertension\.br\ Kidney stone\.br\ \.br\ \.br\ \.br\ \.br\ [facility] Provider Letteron 06-21-2022 Provider Letter (Inserted Image. Dia ble to display) June 21, 2022 AUBREE SEQUEIRA [address] [place] [address] AUBREE SEQUEIRA 1980 To Whom It May Concern, Please excuse above patient from work. Date of Illness: From: _ 06/21/2022 To: _ 06/22/2022 May Return to Work On: 06/22/2022 Restrictions: _ none Comments: _ Sincerely, Cliff Carmona, [facility] [place] [address] [place] [address] Colby Villaseñor [facility] Family Medicine Office/Clini c Noteon 04-23-2022 Family Medicine Office/Clinic Note HPI Staff Aubree is a 41 year old female who presents with: Body aches: yes Chills: yes Fatigue: yes Cough: no Sore throat: no Fever: no Headache: yes Nasal congestion: no Loss of taste: no Loss of smell: no Eye itching/watering: no Sneezing: no Ear discomfort: no GI symptoms: yes, vomiting/diarrhea SOB: no Known Exposure: no Symptoms started on Friday. History of Present Illness I have reviewed and verified the staff HPI to be accurate for this encounter. Review of Systems Constitutional: no fever, no chills, no sweats, no weakness Respiratory: no shortness of breath, no cough, no orthopnea, no wheezing Cardiovascular: no chest pain, no palpitations, no edema Additional ROS info: Except as noted in the above Review of Systems and in the History of Present Illness all other systems have been reviewed and are negative or noncontributory. Physical Exam General: alert, no acute distress Skin: warm, dry Head: no trauma, normocephalic Neck: Trachea midline, no adenopathy, no tenderness Eye: normal conjunctiva, sclera clear ENMT: TM's clear, oral mucosa moist, no pharyngeal erythema or exudate Cardiovascular: regular rate and rhythm, normal peripheral perfusion Respiratory: Lungs CTA, respirations non labored Chest wall: no deformity. Gastrointestinal: soft, non distended, no tenderness, no guarding. Back: No tenderness, Normal ROM, Normal alignment. Extremities: no deformity, no trauma Neurological: oriented x 4, LOC appropriate for age, CN II-XII intact, motor strength equal & normal bilaterally, sensation equal & normal bilaterally, speech normal Psychiatric: cooperative, affect appropriate for age, normal judgement, normal psychiatric thoughts. Assessment/Plan 1. Vomiting and diarrhea (R11.10: Vomiting, unspecified) viral. likely Flu A. supportive. Zofran and bentyl Diarrhea, unspecified (R19.7: Diarrhea, unspecified) Orders: dicyclomine, 20 mg = 1 tab(s), Oral, QID, X 7 day(s), # 28 tab(s), Refills(s) 0, Pharmacy: [facility], 168, cm, 12/12/21 10:16:00 EDT, Height/Length Dosing, 90, kg, 12/12/21 10:16:00 EDT, Weight Dosing ondansetron, 4 mg = 1 tab(s), Oral, q8hr, PRN Nausea/Vomiting, # 12 tab(s), Refills(s) 0, Pharmacy: [facility], 168, cm, 12/12/21 10:16:00 EDT, Height/Length Dosing, 90, kg, 12/12/21 10:16:00 EDT, Weight Dosing Follow-up With When Contact Information Dioni BACON DO, FAM Only if needed [address] [place] [phone] Additional Instructions: Problem List/Past Medical History Ongoing ADD (attention deficit disorder) without hyperactivity Amenorrhea Bleeding after intercourse Borderline hypothyroidism Chronic daily headache Cigarette smoker Endometriosis Epigastric pain History of endometrial ablation Hypertension Insulin resistance Left otitis media Migraine headache 346.90 Mild depression Mood swings Nerve pain Osteoarthritis of neck Pain in female genitalia on intercourse Poor concentration Screening breast examination Sleep apnea Vomiting and diarrhea Women's annual routine gynecological examination Historical Chronic back pain HTN - Hypertension Kidney stone Procedure/Surgical History Arthroscopy of shoulder (11/22/2019), Fasciotomy of foot (01/16/2017), Plantar fasciotomy (01/16/2017), diagnostic laparoscopy with fulguration of endometriosis (02/17/2013), Endometrial ablation (2009), Cholecystectomy (2004), Caesarean section (1999), Tubal ligation (1999), Appendectomy (1997), Tonsillectomy (1992), EGD, lithotripsy of Uniplaces, stone basket for kidney stone. Medications aripiprazole 2 mg Tab, 2 mg, Oral, Daily, 2 refills Holland Thyroid 30 mg Tab, 30 mg= 1 tab(s), Oral, Daily [place] Thyroid 60 mg Tab, 0.5, Oral, Daily, 4 refills betamethasone dipropionate topical 0.05% cream, 1 aquiles, Topical, BID, 2 refills cetirizine 10 mg Tab, 10 mg= 1 tab(s), Oral, Daily, 3 refills dicyclomine 20 mg Tab, 20 mg= 1 tab(s), Oral, QID Emgality Prefilled Pen 120 mg/mL subcutaneous solution, 120 mg, SubCutaneous, qMonth Excedrin Migraine, 2 tab(s), Oral, q6hr, PRN fluticasone 0.05 mg/inh Nasal [place], 2 spray(s), Nasal, Daily hydrochlorothiazide-olmesartan 12.5 mg-20 mg oral tablet, 1 tab(s), Oral, Daily, 3 refills Magnesium Chloride 64, 1 tab, Oral, Bedtime, 1 refills metformin 500 mg oral tablet, 500 mg= 1 tab(s), Oral, BID, 3 refills omeprazole 20 mg Cap-DR, 20 mg= 1 cap(s), Oral, Daily Ozempic 2 mg/1.5 mL (0.25 mg or 0.5 mg dose) subcutaneous solution, 0.5 mg, SubCutaneous, qWeek, 5 refills pantoprazole 40 mg Oral EC Tab, 40 mg= 1 tab(s), Oral, Daily Pepcid 40 mg Tab, 40 mg= 1 tab(s), Oral, Once a day (at bedtime), 2 refills rizatriptan 5 mg oral tablet, 5 mg= 1 tab(s), Oral, Daily, PRN, 1 refills venlafaxine 150 mg Cap-ER, 150 mg= 1 cap(s), Oral, Daily, 1 refills Vyvanse 60 mg oral capsule, 60 mg= 1 cap(s), (more content not included)... Normal [facility] Comment on above: Result Comment: Elec tronically Signed By: Dioni BACON DO\.br\Date and Time Signed: 04/23/22 14:06 EST Provider Letteron 04-23-2022 Provider Letter (Inserted Image. Dia ble to display) April 23, 2022 AUBREE SEQUEIRA [address] [place] [address] AUBREE SEQUEIRA 1980 To Whom It May Concern, Please excuse above patient from work. Date of Illness: From: _04/21/2022 To: _12/ May Return to Work On:04/29/2022 Sincerely, Dioni Bacon [place] [address] [place] [id number] [facility] XR SHOULDER RIGHT (MIN 2 VIE WS)on 03-15-2020 Postoperative change s distal clavicle undersurface. Negative right shoulder otherwise. [employer] GUSTAVO EXAM: XR SHOULDER RI GHT (MIN 2 VIEWS) HISTORY: M25.511. [place] a pop in the right shoulder. Recent arthroscopy. COMPARISON: Right shoulder 12/01/2019. TECHNIQUE: Three views right shoulder. FINDINGS: Postoperative changes undersurface of the distal right clavicle. Acromioclavicular and glenohumeral joint normal. [employer] Chris, Mhpn Incoming R adiant Results From [employer] - 03/15/2020 6:22 PM EST EXAM: XR SHOULDER RIGHT (MIN 2 VIEWS) HISTORY: M25.511. [place] a pop in the right shoulder. Recent arthroscopy. COMPARISON: Right shoulder 12/01/2019. TECHNIQUE: Three views right shoulder. FINDINGS: Postoperative changes undersurface of the distal right clavicle. Acromioclavicular and glenohumeral joint normal. IMPRESSION: Postoperative changes distal clavicle undersurface. Negative right shoulder otherwise. [employer] XR SHOULDER RIGHT (MIN 2 VIE WS)on 12-01-2019 Normal right shoulder. [facility] [employer] GUSTAVO EXAM: XR SHOULDER RI GHT (MIN 2 VIEWS) HISTORY: Z98.890 Status post arthroscopy right shoulder. COMPARISON: MRI right shoulder 10/14/2019, right shoulder plain films 04/14/2019. TECHNIQUE: 3 views right shoulder. FINDINGS: The acromioclavicular and glenohumeral joints are normal. Negative for calcific bursitis. [facility] Chris, Mhpn Incoming R adiant Results From [employer] - 12/01/2019 11:16 AM EDT EXAM: XR SHOULDER RIGHT (MIN 2 VIEWS) HISTORY: Z98.890 Status post arthroscopy right shoulder. COMPARISON: MRI right shoulder 10/14/2019, right shoulder plain films 04/14/2019. TECHNIQUE: 3 views right shoulder. FINDINGS: The acromioclavicular and glenohumeral joints are normal. Negative for calcific bursitis. IMPRESSION: Normal right shoulder. [facility], [place] MRI SHOULDER RIGHT ALEJANDRO Juarez 10-14-2019 1. No acute fracture or dislocation of the right shoulder. 2. Minimal capsular hypertrophy at the right acromioclavicular joint without significant osteophytosis, subchondral bone marrow edema, or joint effusion. 3. Mild distal right supraspinatus, infraspinatus, and subscapularis tendinopathy without tears. Muscle bulk of the right rotator cuff is normal without atrophy or fatty infiltration. 4. Trace fluid within the right subacromial-subdeltoid bursa, possibly trace bursitis. 5. Normal long head of the right biceps tendon. 6. Grossly normal right glenoid labrum on this limited non-arthrographic examination. [place] MRI shoulder, right CLINICAL: Right shoulder pain and limited range of motion for years. No known injury. No prior surgery. TECHNIQUE: Multiplanar, multisequence imaging of the right shoulder was performed without administration of intravenous or intra-articular gadolinium contrast. FINDINGS: Comparison made to right shoulder radiographs dated 04/14/2019. There is no acute fracture or dislocation of the right shoulder. The right glenohumeral joint is normal. There is minimal capsular hypertrophy at the right acromioclavicular joint without significant osteophytosis, subchondral bone marrow edema, or joint effusion. The acromion is type II without anterior or lateral downsloping. There are tiny subcortical cyst at the right greater tuberosity. There is distal mild right supraspinatus and infraspinatus tendinopathy without tear. The right teres minor tendon is normal. There is mild right subscapularis tendinopathy without tear involving its superiormost fibers. Muscle bulk of the right rotator cuff is normal without atrophy or fatty infiltration. There is trace fluid within the right subacromial-subdeltoid bursa. The intra-articular and extraarticular portions of the long head of the biceps tendon are normal. The extra-articular portion is seated normally within the bicipital groove. The glenoid labrum is grossly normal on this limited nonarthrographic examination. [place], [place] Chris, Mhpn Incoming R adiant Results From [facility] - 10/14/2019 2:34 PM EDT MRI shoulder, right CLINICAL: Right shoulder pain and limited range of motion for years. No known injury. No prior surgery. TECHNIQUE: Multiplanar, multisequence imaging of the right shoulder was performed without administration of intravenous or intra-articular gadolinium contrast. FINDINGS: Comparison made to right shoulder radiographs dated 04/14/2019. There is no acute fracture or dislocation of the right shoulder. The right glenohumeral joint is normal. There is minimal capsular hypertrophy at the right acromioclavicular joint without significant osteophytosis, subchondral bone marrow edema, or joint effusion. The acromion is type II without anterior or lateral downsloping. There are tiny subcortical cyst at the right greater tuberosity. There is distal mild right supraspinatus and infraspinatus tendinopathy without tear. The right teres minor tendon is normal. There is mild right subscapularis tendinopathy without tear involving its superiormost fibers. Muscle bulk of the right rotator cuff is normal without atrophy or fatty infiltration. There is trace fluid within the right subacromial-subdeltoid bursa. The intra-articular and extraarticular portions of the long head of the biceps tendon are normal. The extra-articular portion is seated normally within the bicipital groove. The glenoid labrum is grossly normal on this limited nonarthrographic examination. IMPRESSION: 1. No acute fracture or dislocation of the right shoulder. 2. Minimal capsular hypertrophy at the right acromioclavicular joint without significant osteophytosis, subchondral bone marrow edema, or joint effusion. 3. Mild distal right supraspinatus, infraspinatus, and subscapularis tendinopathy without tears. Muscle bulk of the right rotator cuff is normal without atrophy or fatty infiltration. 4. Trace fluid within the right subacromial-subdeltoid bursa, possibly trace bursitis. 5. Normal long head of the right biceps tendon. 6. Grossly normal right glenoid labrum on this limited non-arthrographic examination. [facility] (MIN 2 VIE WS)on 04-14-2019 Negative right shoulder. [facility]: XR SHOULDER RI GHT (MIN 2 VIEWS) HISTORY: M25.511 38-year-old female with right shoulder pain COMPARISON: None. TECHNIQUE: 3 views right shoulder FINDINGS: The acromioclavicular and glenohumeral joints are normal. Negative for calcific bursitis. [facility], GUSTAVO Chris, Mhpn Incoming R adiant Results From [employer] - 04/14/2019 7:56 PM EST EXAM: XR SHOULDER RIGHT (MIN 2 VIEWS) HISTORY: M25.511 38-year-old female with right shoulder pain COMPARISON: None. TECHNIQUE: 3 views right shoulder FINDINGS: The acromioclavicular and glenohumeral joints are normal. Negative for calcific bursitis. IMPRESSION: Negative right shoulder. [facility] GUSTAVO Vital Signs Date Time Vital Sign Value Performing Clinician Anayi armando 12-22-2022 17:53-0400 Diastolic blood pressure 81 mm[Hg] Chapin Covarrubias MD Work Phone: [facility] 12-22-2022 17:53-0400 Systolic blood pressure 164 mm[Hg] Chapin Covarrubias MD Work Phone: [facility] 12-22-2022 16:56-0400 Body height 167.6 cm Chapin Covarrubias MD Work Phone: [facility] 12-22-2022 16:56-0400 Body mass index (BMI) [Ratio] 30.67 kg/m2 Chapin Covarrubias MD Work Phone: [facility] 12-22-2022 16:56-0400 Body temperature 97.81 [degF] Chapin Covarrubias MD Work Phone: [facility] 12-22-2022 16:56-0400 Body weight 86.18 kg Chapin Covarrubias MD Work Phone: [facility] 12-22-2022 16:56-0400 Heart rate 78 /min Chapin Covarrubias MD Work Phone: [facility] 12-22-2022 16:56-0400 Respiratory rate 18 /min Chapin Covarrubias MD Work Phone: [facility] 12-22-2022 16:56-0400 SaO2% (BldA) [Mass fraction] 97 % Chapin Covarrubias MD Work Phone: [facility] [employer] 09-18-2022 00:24-0400 Diastolic blood pressure 73 mm[Hg] Bertha Tomlin MD Work Phone: [facility] 09-18-2022 00:24-0400 Systolic blood pressure 127 mm[Hg] Bertha Tomlin MD Work Phone: [facility] 09-18-2022 00:09-0400 Heart rate 58 /min Bertha Tomlin MD Work Phone: [facility] 09-18-2022 00:09-0400 Respiratory rate 15 /min Bertha Tomlin MD Work Phone: [facility] [employer] 09-17-2022 23:20-0400 SaO2% (BldA) [Mass fraction] 97 % Bertha Tomlin MD Work Phone: [facility] 09-17-2022 23:04-0400 Body height 167.6 cm Bertha Tomlin MD Work Phone: [facility] 09-17-2022 23:04-0400 Body mass index (BMI) [Ratio] 33.27 kg/m2 Bertha Tomlin MD Work Phone: [facility] 09-17-2022 23:04-0400 Body temperature 97.9 [degF] Bertha Tomlin MD Work Phone: [facility] 09-17-2022 23:04-0400 Body weight 93.49 kg Bertha Tomlin MD Work Phone: [facility] 10-04-2020 01:38-0400 Body mass index (BMI) [Ratio] 33.25 kg/m2 Silver Harmon MD Work Phone: [facility] [employer] Work Phone: 10-04-2020 01:38-0400 Body temperature 97.59 [degF] Silver Harmon MD Work Phone: [employer] Work Phone: 10-04-2020 01:38-0400 Body weight 93.44 kg Silver Harmon MD Work Phone: [employer] Work Phone: 10-04-2020 01:38-0400 Diastolic blood pressure 98 mm[Hg] Silver Harmon MD Work Phone: [employer] Work Phone: 10-04-2020 01:38-0400 Heart rate 69 /min Silver Harmon MD Work Phone: [employer] Work Phone: 10-04-2020 01:38-0400 Respiratory rate 16 /min Silver Harmon MD Work Phone: [employer] Work Phone: 10-04-2020 01:38-0400 SaO2% (BldA) [Mass fraction] 97 % Silver Harmon MD Work Phone: [facility] Work Phone: 10-04-2020 01:38-0400 Systolic blood pressure 189 mm[Hg] Silver Harmon MD Work Phone: [employer] Work Phone: 09-13-2020 09:45-0400 Body weight 97.84 kg Daniela Ramos MD Work Phone: [employer] [facility] 09-13-2020 09:45-0400 Diastolic blood pressure 85 mm[Hg] Daniela Ramos MD Work Phone: [employer] [facility] 09-13-2020 09:45-0400 Heart rate 76 /min Daniela Ramos MD Work Phone: [employer] [facility] 09-13-2020 09:45-0400 SaO2% (BldA) [Mass fraction] 100 % Daniela Ramos MD Work Phone: [facility] 09-13-2020 09:45-0400 Systolic blood pressure 163 mm[Hg] Daniela Ramos MD Work Phone: [facility] 08-20-2020 23:36-0400 Body Temperature 98.71 [degF] [employer] Work Phone: 08-20-2020 23:36-0400 BP Diastolic 107 mm[Hg] [facility] Work Phone: 08-20-2020 23:36-0400 BP Systolic 181 mm[Hg] [employer] [facility] [employer] Work Phone: 08-20-2020 23:36-0400 Pulse (Heart Rate) 82 /min Chapin Satish [facility] [employer] Work Phone: 08-20-2020 23:36-0400 Pulse Oximetry 97 % [employer] Work Phone: 08-20-2020 23:36-0400 Respiratory Rate 17 /min [employer] Phone: 03-17-2019 13:21-0500 BMI (Body Mass Index) 30.02 kg/m2 [facility] 03-17-2019 13:21-0500 Body Temperature 97.7 [degF] [facility] 03-17-2019 13:21-0500 Body weight 84.37 kg [facility] 03-17-2019 13:21-0500 BP Diastolic 98 mm[Hg] [facility] 03-17-2019 13:21-0500 BP Systolic 180 mm[Hg] [facility] 03-17-2019 13:21-0500 Height 167.6 cm [facility] 03-17-2019 13:21-0500 Pulse (Heart Rate) 69 /min [facility] [place] [place] 03-17-2019 13:21-0500 Pulse Oximetry 97 % Silver Ardon [facility], [place] 03-17-2019 13:21-0500 Respiratory Rate 18 /min Silver Ardon [facility] 01-17-2019 16:41-0400 BMI (Body Mass Index) 28.89 kg/m2 Chapin Ardon [facility], [place] 01-17-2019 16:41-0400 Body Temperature 98.8 [degF] Chapin Ardon [facility], [place] 01-17-2019 16:41-0400 Body weight 81.19 kg Chapin Covarrubias [facility] , [place] 01-17-2019 16:41-0400 BP Diastolic 70 mm[Hg] [facility] [place] 01-17-2019 16:41-0400 BP Systolic 145 mm[Hg] Chapin Covarrubias [facility] , [place] 01-17-2019 16:41-0400 Height 167.6 cm [facility] , [place] 01-17-2019 16:41-0400 Pulse (Heart Rate) 65 /min [facility] [place] [place] 01-17-2019 16:41-0400 Pulse Oximetry 96 % Chapin Ardon [facility] , [place] 01-17-2019 16:41-0400 Respiratory Rate 18 /min Chapin Ardon [facility], [place] Encounters Encounter Date Encounter Type Care Provider Facility Start: 04-14-2023 End: 04-15-2023 ambulatory Jamia Brown Facility:[facility] Start: 04-14-2023 End: 04-14-2023 ambulatory HUMZA BANG Not Available Start: 03-26-2023 End: 03-27-2023 ambulatory Jamia Brown Facility:CD:[id number] Start: 03-17-2023 ambulatory Dioni BACON Facility: [facility] Start: 03-14-2023 End: 03-15-2023 ambulatory Dioni BCAON Facility:[facility] Start: 02-02-2023 End: 02-02-2023 Emergency department patient visit DIONI [facility] Start: 12-22-2022 End: 12-22-2022 Emergency department patient visit [facility] Start: 12-22-2022 End: 12-22-2022 Emergency department patient visit Chapin Covarrubias MD Work Phone: [facility] ED Comment on above: Abdominal pain, epig astric (Primary Dx); Nausea and vomiting, unspecified vomiting type Start: 11-06-2022 End: 11-07-2022 ambulatory Dioni BACON Facility:[facility] Start: 10-25-2022 End: 10-25-2022 ambulatory ELLIS WHITTEN Facility:[facility] Start: 10-25-2022 End: 10-25-2022 Patient encounter procedure Ellis Whitten TITLE INVESTIGATOR.PLUMBING ENGINEERING DRAFTSPERSON Work Phone: [facility] Comment on above: Bilateral leg pain ( Primary Dx); Bilateral leg numbness; Bilateral hip pain Start: 10-10-2022 End: 10-11-2022 ambulatory Dioni BACON Facility:[facility] Start: 09-18-2022 End: 09-19-2022 ambulatory Dioni BACON Facility[facility] Start: 09-18-2022 End: 09-19-2022 ambulatory Dioni BACON Facility:[facility] Start: 09-18-2022 End: 09-18-2022 Emergency department patient visit [facility] Start: 09-17-2022 End: 09-18-2022 Emergency department patient visit Bertha Tomlin MD Work Phone: [facility] ED Comment on above: Primary hypertension (Primary Dx) Start: 09-17-2022 End: 09-18-2022 ambulatory Dioni BACON Facility:[facility] Start: 09-13-2022 End: 09-14-2022 ambulatory CLIFF CARMONA Facility:[facility] Start: 08-06-2022 End: 08-07-2022 ambulatory Dioni BACON Facility:[facility] Start: 07-23-2022 End: 07-24-2022 ambulatory Dioni BACON Facility:[facility] Start: 07-23-2022 End: 07-24-2022 ambulatory Dioni BACON Facility:[facility] Start: 06-21-2022 End: 06-22-2022 ambulatory RHIANNA BRAXTON Facility:[facility] Start: 05-21-2022 ambulatory Dioni BACON Facilit y:[facility] [place] Start: 04-23-2022 End: 04-24-2022 ambulatory Dioni BACON Facility:[facility] Start: 10-04-2020 End: 10-04-2020 Emergency department patient visit Silver Harmon MD Work Phone: [facility] ED Comment on above: Migraine without sta tus migrainosus, not intractable, unspecified migraine type (Primary Dx) Start: 09-13-2020 End: 09-13-2020 Office outpatient new 30 minutes Daniela Ramos MD Work Phone: [facility] Comment on above: Localized adiposity (Primary Dx); Atrophic skin; Sultana-induced panniculitis Start: 08-20-2020 End: 08-21-2020 Emergency department patient visit Chapin Covarrubias Work Phone: [facility] ED Comment on above: Multiple insect bite s (Primary Dx); Cellulitis of other specified site Start: 03-15-2020 End: 03-17-2020 Subsequent hospital visit by physician Jordyn Additional Xray At [facility] Comment on above: Right shoulder pain, unspecified chronicity Start: 03-15-2020 End: 03-17-2020 [facility] Start: 12-01-2019 End: 12-03-2019 Subsequent hospital visit by physician Jordyn [facility] 1 [facility] Comment on above: History of arthrosco py of right shoulder Start: 12-01-2019 End: 12-03-2019 Subsequent [facility] Start: 10-14-2019 End: 10-16-2019 Subsequent hospital visit by physician Jordyn [facility] Comment on above: Impingement syndrome of shoulder, right; Right shoulder pain, unspecified chronicity Start: 04-14-2019 End: 04-16-2019 Subsequent hospital visit by physician Jordyn Dig Rad 1 [facility] Comment on above: Right shoulder pain, unspecified chronicity Start: 04-14-2019 End: 04-16-2019 Subsequent hospital visit by physician Dioni Bacon [facility] Start: 03-17-2019 End: 03-17-2019 Emergency department patient visit Silver Harmon Work Phone: [facility] ED Comment on above: Migraine without sta tus migrainosus, not intractable, unspecified migraine type (Primary Dx) Start: 01-17-2019 End: 01-17-2019 Emergency department patient visit Chapin Covarrubias Work Phone: [facility] ED Comment on above: Nausea vomiting and diarrhea (Primary Dx); Migraine without aura and with status migrainosus, not intractable Procedures Date Procedure Procedure Detail Performing Clinician Start: 12-22-2022 Ecg routine ecg w/le ast 12 lds w/i&r Chapin Covarrubias MD Work Phone: Start: 12-22-2022 Comprehensive metabo lic panel Chapin Covarrubias MD Work Phone: Start: 09-17-2022 Basic metabolic pane l calcium total Bertha Tomlin MD Work Phone: Start: 09-17-2022 Ecg routine ecg w/le ast 12 lds w/i&r Bertha Tomlin MD Work Phone: Start: 03-15-2020 Radex shoulder compl ete minimum 2 views Tony Nobles Other Phone: Start: 12-01-2019 Radex shoulder compl ete minimum 2 views Tony Nobles Other Phone: Start: 10-14-2019 Mri any jt upper ext remity w/o contrast matrl Tony Nobles Other Phone: Start: 04-14-2019 Radex shoulder compl ete minimum 2 views Tony Nobles Other Phone: Plan of Treatment Date Care Activity Detail Author Start: 01-15-2023 End: 01-15-2023 Patient encounter procedure 01/15/2023 Office Visit Family Medicine Dioni Bacon DO [address] [place] [address] [facility] Start: 01-10-2023 Influenza vaccination INFLUENZA (Season Ended) [facility] Start: 12-10-2022 Influenza vaccination [facility] Start: 05-12-2022 DEPRESSION ASSESSMENT DEPRESSION ASSESSMENT [facility] Start: 01-10-2021 Influenza vaccination [facility] [employer] [facility] Phone: Start: 01-11-2020 [facility] Start: 01-10-2019 Influenza vaccination Flu vaccine (#1) [facility] Start: 2018 Diabetes screen Diabetes screen [place], [place] Start: 2018 Fasting lipid profile LIPID SCREENING [facility] [employer] [facility] Start: 2018 Lipid panel [facility] Start: 2018 Lipid screen Lipid screen [place], [place] Start: 2018 Mammography MAMMOGRAM [facility] Start: 2018 Screening mammography MAMMOGRAM SCREENING DISCUSSION [facility] Start: 2013 Diabetes screen Diabetes screen [facility] Start: 2008 HPV TESTING HPV TESTING [facility] Start: 2008 Screening for malignant neoplasm of cervix [facility] Start: 10-07-1999 Cervical cancer screen Cervical cancer screen [place], [place] Start: 10-07-1999 PAP TESTING PAP TESTING [facility] Start: 10-07-1999 Screening for malignant neoplasm of cervix [facility] Start: 1997 DTaP/Tdap/Td vaccine (1 - Tdap) DTaP/Tdap/Td vaccine (1 - Tdap) [facility] Start: 1997 Third diphtheria, tetanus and acellular pertussis (DTaP) vaccination TDAP (ADULT) [facility] Start: 1997 Urine microalbumin profile DTAP,TDAP,TD (1 - Tdap) [facility] Start: 1996 Hepatitis C screening [facility] Start: 1996 HEPATITIS C SCREENING HEPATITIS C SCREENING [facility] Start: 1996 HIV SCREENING HIV SCREENING [facility] Start: 1996 Tetanus vaccination TETANUS [facility] Start: 1994 COVID-19 Vaccine (1) COVID-19 Vaccine (1) [facility] [employer] Phone: Start: 1993 HIV screen HIV screen [place], [place] Start: 1993 HIV screening [facility] [employer] Start: 10-07-1991 HIV screening HIV SCREENING DISCUSSION [facility] Start: 1990 COVID-19 Vaccine (1) COVID-19 Vaccine (1) [employer] Phone: Start: 1990 Depression Screen Depression Screen [facility] [employer] Start: 1989 DTaP/Tdap/Td vaccine (1 - Tdap) DTaP/Tdap/Td vaccine (1 - Tdap) [place] Start: 1984 PNEUMOCOCCAL (1 - PCV) PNEUMOCOCCAL (1 - PCV) [facility] Start: 1984 Pneumococcal 0-64 years Vaccine (1 - PCV) Pneumococcal 0-64 years Vaccine (1 - PCV) [facility] [employer] Start: 1984 Pneumococcal 0-64 years Vaccine (1 of 1 - PPSV23) Pneumococcal 0-64 years Vaccine (1 of 1 - PPSV23) [place] Start: 1984 Pneumococcal 0-64 years Vaccine (1 of 2 - PPSV23) Pneumococcal 0-64 years Vaccine (1 of 2 - PPSV23) [employer] Phone: Start: 04-08-1979 COVID-19 Vaccine (#1) COVID-19 Vaccine (#1) [facility] [employer] Start: 1978 HEPATITIS B (1 of 3 - 3-dose series) HEPATITIS B (1 of 3 - 3-dose series) [facility] Start: 1978 Hepatitis C antibody, confirmatory test HEPATITIS C VIRUS SCREENING [facility] Start: 1978 Hepatitis C screening Hepatitis C screen [facility]: Start: 1978 Thyroid stimulating hormone measurement TSH [facility] EKG 12 Lead EKG 12 Lead ECG STAT 09/17/2022 11:14 PM EDT [facility] Work Phone: EKG 12 Lead EKG 12 Lead ECG Routine 12/22/2022 5:13 PM EDT [facility] [employer] End: 01-17-2019 Urinalysis Urinalysis Lab STAT One Time for 1 Occurrences starting 01/17/2019 until 01/17/2019 [facility] [place] [place] Comment on above: One Time for 1 Occur rences starting 01/17/2019 until 01/17/2019 Flip lauren Payers Date Payer Category Payer Unknown [employer] PPO OOS [id number] 2022-Present [phone] [address] [place] [address] PPO [id number] 2014 Unknown [id number] 2014 Unknown [id number] 2014 Unknown [id number] 71.315 1978 Unknown [id number] 2.16.840.1.267551.3.579.2.174 1978 Unknown [id number] 2.16.840.1.716440.3.579.2.174 1978 Unknown [id number] 2.16.840.1.476387.3.579.2.174 1978 Unknown [id number] 2.16.840.1.358062.3.579.2.1259 1978 Unknown [id number] 2.16.840.1.595189.3.579.2.727 1978 Unknown [id number] 2.16.840.1.965923.3.579.2.727 1978 Unknown [id number] 2.16.840.1.966486.3.579.2.727 1978 Unknown [id number] 2.16.840.1.569612.3.579.2. 1978 Unknown [id number] 2.16.840.1.943684.3.579.2. 1978 Unknown [id number] 2.16.840.1.702511.3.579.2. 1978 Unknown [id number] 2.16.840.1.211600.3.579.2. 1978 Unknown [id number] 2.16.840.1.168442.3.579.2. 1978 Unknown [id number] 2.16.840.1.222822.3.579.2. 1978 Unknown [id number] 2.16.840.1.352680.3.579.2. 1978 Unknown [id number] 2.16.840.1.591133.3.579.2. 1978 Unknown [id number] 2.16.840.1.045483.3.579.2. 1978 Unknown [id number] 2.16.840.1.668014.3.579.2 1978 Unknown [id number] 2.16.840.1.349620.3.579.2 1978 Unknown [id number] 2.16840.1.733009.3.579.2. 1978 Unknown [id number] 2.16.840.1.075690.3.579.2 1978 Unknown [id number] 2.16840.1.353413.3.579.2. Social History Date Type Detail Facility Start: 01-17-2019 End: 09-17-2022 Tobacco smoking status [facility] Current every day smoker [place], [place] History of tobacco use Cigarette Smoker [place], [place] Start: 01-17-2019 End: 09-17-2022 Cigarettes smoked current (pack per day) - Reported [facility] [employer] Start: 01-17-2019 End: 03-17-2019 Alcohol intake [facility] Start: 1978 Sex Assigned At Not on file [facility] [place] [facility] Start: 03-17-2019 End: 12-22-2022 Alcohol intake Current non-drinker of alcohol (finding) [facility] Start: 03-17-2019 End: 09-17-2022 Tobacco use and exposure Never used [place], [place] Exposure to SARS-CoV -2 (event) Not sure [employer] Phone: Start: 09-13-2020 [facility] [employer] [facility] Start: 09-13-2020 Alcohol intake Ex-drinker (finding) [employer] Start: 09-18-2022 End: 12-22-2022 History SDOH Alcohol Frequency 1 [facility] [employer] Phone: Start: 09-18-2022 End: 12-22-2022 History SDOH Alcohol Std Drinks 0 [facility] [employer] Phone: Start: 04-23-2013 Alcohol intake Not Asked Rub[facility] heck [facility] Clinical Notes 09-13-2020 to 10-25-2022 Ellis Whitten APRN.PLUMBING ENGINEERING DRAFTSPERSON - 10/25/2022 2:45 PM Daniela Salinas MD - 09/13/2020 9:30 AM EDT Note Date & Type Note Facility 10-25-2022 Note HNO ID: [id number] Author: Ellis Whitten APRN.PLUMBING ENGINEERING DRAFTSPERSON Service: ? Author Type: Nurse Practitioner Type: Progress Notes Filed: 10/25/2022 4:45 PM Note Text: Spine Care Path Radicular Leg Pain - Chronic (> 12 weeks) Initial Exam SUBJECTIVE HISTORY OF PRESENT ILLNESS: Aubree Sequeira is a 42 year old female who presents with a chief complaint of bilateral hip and leg pain and is seen in consultation requested by Dr. Dioni Bacon or an opinion regarding bilateral lower extremity pain. My final recommendations will be communicated back to the requesting physician by way of shared medical record or letter via US mail. Patient presents with bilateral hip and lower extremity pain for many years . She states that her symptoms have been present for greater than 5 years, she denies accident or injury prior to onset. Prior to today's appointment she has most recently been under the care of her primary care provider Dr. Bacon with referral to [facility] neurology in regards to her symptoms. Prior to Dr. Bacon patient reports that she has been evaluated by multiple neurologist in [facility]. She states they just want to give me meds and no one wants to help me . Currently employed at [employer] Smoker - cessation reviewed and encouraged Pain localized to Bilateral lower extremities Pain described as constant , aching Radiation: Blater hips to BLE -entirely Numbness/Tingling: Intermittnet to ankles and feet and all toes She denies loss of bowel or bladder control, denies dexterity difficulties, denies imbalance. Pain rated 4/10 at worst 10/10 Pain worse with rotating hips inwards or outwards - for long periods of time. Pain improved with nothing Interventions:heat, ice, medications Medications: Vyvanse , prednisone , Effexor, Past medications: Gabapentin - did not work, Robinul, baclofen, B12, : She states medications were ineffective. Physical Therapy: None Treating Physicians: Dr. Bacon - PCP - Dr. Sinclair - Neurology - last seen [address] Jean Roberts - Neurology - [facility] quite a few years ago History of Spine Injections/Surgery: None for spine RT shoulder impingement surgery Other Issues Addressed at the Visit Today: None. Precipitating Event: None PAIN EVALUATION 10/25/2022 1504 Pain Level: 4 worse when standing for long periods Pain Location: -- Hips to both legs Description: Aching Duration Units: Years Frequency: Continuous Litigation: No Workers' Compensation: No YELLOW AND BLUE FLAGS YES-Neg Attitude; Back Pain is Disabling YES-Avoiding Activity (for Fear of Pain) YES-Depression or Anxiety Disorders No-Social Problems No-Substance Use Disorder No-Job Dissatisfaction No-Financial Disincentives Patient Entered Questionnaires PROMIS Score Percentiles Percentiles provide an indication of how the patient's score ranks in relation to the general population. Higher percentile rankings indicate better function/quality of life. 50th percentile is the average of the general population and indicates half of respondents had a worse score. Depression Screening: PHQ-9 Self-Harm (Item 9) response options: 0 Not at all 1 Several days 2 More than half the days 3 Nearly every day PHQ-9 Levels: 0-4 No - mild depression 5-9 Mild depression 10-14 Moderate depression 15-19 Moderately severe depression 20-27 Severe depression There is no problem list on file for this patient. PAST MEDICAL HISTORY Diagnosis Date Migraine Nephrolithiasis PAST SURGICAL HISTORY Procedure Laterality Date APPENDECTOMY , CLASSIC, ANTE/POST CA CHOLECYSTECTOMY CYSTOSCOPY,URETEROSCOPY,LITHOTRI PSY 2000 LAPAROSCOPY DIAGNOSTIC for endometriosis TONSILLECTOMY HX Social History Tobacco Use Smoking status: Every Day Packs/day: 1.00 Types: Cigarettes FAMILY HISTORY Problem Relation Age of Onset Hypertension Mother ALLERGIES Allergen Reactions Penicillins Hives CURRENT MEDICATIONS: lisdexamfetamine (VYVANSE) 60 mg capsule Take 60 mg by mouth. venlafaxine ER (EFFEXOR XR) 150 mg 24 hr capsule Take 1 capsule by mouth once daily. Olmesartan-hydroCHLOROthiazide 20-12.5 mg per tablet Take 1 tablet by mouth once daily. ibuprofen 800 mg tablet Take 800 mg by mouth as needed. rizatriptan (MAXALT) 10 mg tablet Take 10 mg by mouth as needed. May repeat in 2 hours if needed (Patient not taking: Reported on 10/25/2022) NAPROXEN SODIUM (ALEVE ORAL) Take by mouth as needed. (Patient not taking: Reported on 10/25/2022) REVIEW OF SYSTEMS: PAIN ASSESSMENT: See HPI. GENERAL: Denies fever, chills malaise and weight loss. HEENT: No recent change in vision or hearing. CARDIOVASCULAR: Hypertension RESPIRATORY: Denies SOB, sputum production, and hemoptysis. GI: Denies GI ulcers, inflammatory disease, or liver disease. : Denies change in frequency or urgency, kidney disease, and burning with urination. (more content not included)... [facility] 10-25-2022 History of Present illness Narrative Images from the original note were not included. Spine Care Path Radicular Leg Pain - Chronic (> 12 weeks) Initial Exam SUBJECTIVE HISTORY OF PRESENT ILLNESS: Aubree Sequeira is a 42 year old female who presents with a chief complaint of bilateral hip and leg pain and is seen in consultation requested by Dr. Dioni Bacon or an opinion regarding bilateral lower extremity pain. My final recommendations will be communicated back to the requesting physician by way of shared medical record or letter via US mail. Patient presents with bilateral hip and lower extremity pain for many years . She states that her symptoms have been present for greater than 5 years, she denies accident or injury prior to onset. Prior to today's appointment she has most recently been under the care of her primary care provider Dr. Bacon with referral to [facility] neurology in regards to her symptoms. Prior to Dr. Bacon patient reports that she has been evaluated by multiple neurologist in [facility]. She states they just want to give me meds and no one wants to help me . Currently employed at [employer] Smoker - cessation reviewed and encouraged Pain localized to Bilateral lower extremities Pain described as constant , aching Radiation: Blater hips to BLE -entirely Numbness/Tingling: Intermittnet to ankles and feet and all toes She denies loss of bowel or bladder control, denies dexterity difficulties, denies imbalance. Pain rated 4/10 at worst 10/10 Pain worse with rotating hips inwards or outwards - for long periods of time. Pain improved with nothing Interventions:heat, ice, medications Medications: Vyvanse , prednisone , Effexor, Past medications: Gabapentin - did not work, Robinul, baclofen, B12, : She states medications were ineffective. Physical Therapy: None Treating Physicians: Dr. Bacon - PCP - Dr. Sinclair - Neurology - last seen [address] Jean Roberts - Neurology - [facility] quite a few years ago History of Spine Injections/Surgery: None for spine RT shoulder impingement surgery Other Issues Addressed at the Visit Today: None. Precipitating Event: None PAIN EVALUATION 10/25/2022 1504 Pain Level: 4 worse when standing for long periods Pain Location: -- Hips to both legs Description: Aching Duration Units: Years Frequency: Continuous Litigation: No Workers' Compensation: No YELLOW & BLUE FLAGS YES-Neg Attitude; Back Pain is Disabling YES-Avoiding Activity (for Fear of Pain) YES-Depression or Anxiety Disorders No-Social Problems No-Substance Use Disorder No-Job Dissatisfaction No-Financial Disincentives Patient Entered Questionnaires PROMIS Score Percentiles Percentiles provide an indication of how the patient's score ranks in relation to the general population. Higher percentile rankings indicate better function/quality of life. 50th percentile is the average of the general population and indicates half of respondents had a worse score. Depression Screening: PHQ-9 Self-Harm (Item 9) response options: 0 Not at all 1 Several days 2 More than half the days 3 Nearly every day PHQ-9 Levels: 0-4 No - mild depression 5-9 Mild depression 10-14 Moderate depression 15-19 Moderately severe depression 20-27 Severe depression There is no problem list on file for this patient. PAST MEDICAL HISTORY Diagnosis Date Migraine Nephrolithiasis PAST SURGICAL HISTORY Procedure Laterality Date APPENDECTOMY , CLASSIC, ANTE/POST CA CHOLECYSTECTOMY CYSTOSCOPY,URETEROSCOPY,LITHOTRI PSY 2000 LAPAROSCOPY DIAGNOSTIC for endometriosis TONSILLECTOMY HX Social History Tobacco Use Smoking status: Every Day Packs/day: 1.00 Types: Cigarettes FAMILY HISTORY Problem Relation Age of Onset Hypertension Mother ALLERGIES Allergen Reactions Penicillins Hives CURRENT MEDICATIONS: lisdexamfetamine (VYVANSE) 60 mg capsule Take 60 mg by mouth. venlafaxine ER (EFFEXOR XR) 150 mg 24 hr capsule Take 1 capsule by mouth once daily. Olmesartan-hydroCHLOROthiazide 20-12.5 mg per tablet Take 1 tablet by mouth once daily. ibuprofen 800 mg tablet Take 800 mg by mouth as needed. rizatriptan (MAXALT) 10 mg tablet Take 10 mg by mouth as needed. May repeat in 2 hours if needed (Patient not taking: Reported on 10/25/2022) NAPROXEN SODIUM (ALEVE ORAL) Take by mouth as needed. (Patient not taking: Reported on 10/25/2022) REVIEW OF SYSTEMS: PAIN ASSESSMENT: See HPI. GENERAL: Denies fever, chills malaise and weight loss. HEENT: No recent change in vision or hearing. CARDIOVASCULAR: Hypertension RESPIRATORY: Denies SOB, sputum production, and hemoptysis. GI: Denies GI ulcers, inflammatory disease, or liver disease. : Denies change in frequency or urgency, kidney disease, and burning with urination. MUSCULOSKELETAL: Positive for See HPI SKIN: Denies rash or itching. PSYCHOLOGICAL: Denies uncontrolled depression or anxiety.- controled with medications. NEURO: Numbness ENDOCRINE: Denies diabetes, thyroid disease. HEMATOLOGY/LYMPHOLOGY: Denies cancer, bleeding or clotting disorders, anemia,and DVT's. ALLERGIC/IMMUNOLOGICAL: Denies risks for infection, or recent MRSA infections. OBJECTIVE: PHYSICAL EXAM There were no vitals taken for this visit. GENERAL APPEARANCE: Well appearing, well-hydrated, well nourished and alert,overweight SKIN: Head, neck, trunk, and extremities dry, intact and without lesions LUNGS: even and non-labored breathing, normal chest excursion NEURO/PSYCH: oriented to time, place, and person, speech normal, mental status intact GAIT: normal, toe walking normal, heel walking normal, able to tandem gait POSTURE: Posture and spinal curves are normal PALPATION: no palpable masses, tenderness, or spasm, no palpable subluxation or step-off, no point tenderness over the spine MUSCULOSKELETAL: Extended Low Back & Leg Exam Lumbar Range of Motion Flexion Touches floor Extension Normal RIGHT LEFT Lateral Bending Full Full Oblique Extension Within Normal Limits Within Normal Limits Leg Raise Straight Leg Raise Negative Negative Contralateral Straight Leg Raise Negative Negative DTRs Knee Normal Normal Ankle Normal Normal Babinski normal normal Strength of Lower Extremities Extensor Hallux Longus 5/5 5/5 Ankle Dorsiflexion 5/5 5/5 Ankle Plantarflexion 5/5 5/5 Knee Extension 5/5 5/5 Fermin's Exam: Deferred Hip Range of Motion RIGHT LEFT Flexion Normal Normal Extension Normal Normal Abduction Normal Normal Adduction Normal Normal Internal Rotation Normal Normal External Rotation Normal Normal Hip Exam RIGHT LEFT MARILIN Exam Normal Normal Trochanteric Bursa Tenderness Normal Normal Gaenslen's Maneuver Normal Normal Mathew's Test (IT-Band Pathology) Normal Normal Upper Body Reflex Exam RIGHT LEFT Reflex Status Reflex Status Biceps 2+ Normal 2+ Normal Triceps 2+ Normal 2+ Normal Brachioradialis 2+ Normal 2+ Normal Bey's Sign absent absent Upper Extremity Strength RIGHT LEFT Strength (MMT) Strength (MMT) Shoulder Abduction 5/5 5/5 Biceps 5/5 5/5 Triceps 5/5 5/5 Resisted Suppination 5/5 5/5 Wrist Extension 5/5 5/5 Interossei 5/5 5/5 NEUROSENSORY: Soft touch; Within Normal Limits Logroll: Negative Thigh thrust: Negative Jessica test: Negative Prone extension: Negative Neuro Tests: None Data Review: [facility] records independently reviewed No outside records or outside imaging available 09/18/2022 XR Bilat hip report only: NEGATIVE BILATERAL HIPS. 09/17/2022 US LE Venous duplex bilateral report only :IMPRESSION: NO EVIDENCE OF VENOUS THROMBOSIS INVOLVING VISUALIZED DEEP VEINS OF BOTH LEGS. XR Lumbar report only: Negative lumbar spine x-ray series. ASSESSMENT/PLAN Bilateral leg pain (primary encounter diagnosis) Bilateral leg numbness Bilateral hip pain Aubree Sequeira is a 42 year old female with chronic bilateral hip and leg pain with intermittent numbness. She denies accident or injury prior to onset of current symptoms. No neurological or strength deficits noted at time of physical examination. 09/18/2022 XR Bilat hip report only: NEGATIVE BILATERAL HIPS. At time of appointment patient states that she has undergone multiple testing in regards to her current symptoms including x-ray and MRI lumbar spine and EMG testing. Results and imaging of these test are unavailable at time of today's appointment. She is encouraged to obtain copy and records of imaging and test for further evaluation and treatment considerations including need for updated imaging and testing. Physical therapy consultation order placed, patient has not attempted physical therapy for her current symptoms. She was educated on benefits of physical therapy and is encouraged to attend. Patient verbalized that she will be attending at [facility], order was signed and given to patient at discharge. Medications indicated for use reviewed, she verbalized that she was not looking for medications just answered. No changes made to regimen. Plan of care, red flag signs and when to seek emergent treatment reviewed. 1. Imaging: Patient will obtain imaging and records of previous testing EMG, x-ray/MRI lumbar spine 2. Physical Therapy: Consult to 3. Medication: No changes 4. Referrals: PT - will attend at [facility] -order signed and given to patient at discharge. 5. Considerations: XR and MRI lumbar, EMG 6. Follow up: 2 months Imaging Ordered: None SIGNATURE: Ellis Whitten APRN.CNP PATIENT NAME: Aubree Sequeira DATE: October 25, 2022 TIME: 3:04 PM documented in this encounter [facility] 09-13-2020 History of Present illness Narrative Subjective: Aubree Sequeira is an 39 y.o. female who presents for evaluation in having a Panniculectomy. Patient states that she does have a rash in between her folds during the summer months. She has had a in the past. She denies significant weight loss. She has had 3 pregnancies She is forthright in admitting to smoking 1 pack per day Allergies Allergen Reactions Penicillins Hives Other reaction(s): Unknown Current Outpatient Medications Medication Sig Dispense Refill Semaglutide (OZEMPIC, 0.25 OR 0.5 MG/DOSE, SC) Inject under the skin. ALPRAZolam 0.5 MG tablet TAKE 1 TABLET BY MOUTH 2 (TWO) hours prior to procedure and TAKE 1 TABLET ONE-HALF hour prior to procedure as needed for anxiety Holland Thyroid 60 MG tablet Take 60 mg by mouth daily. ciprofloxacin (Cipro) 500 MG tablet gabapentin 100 MG capsule Take 200 mg by mouth Every night. hydrOXYzine pamoate 25 MG capsule TAKE 1 CAPSULE BY MOUTH FOUR TIMES DAILY NEEDED FOR ITCHING lisinopril 10 MG tablet metFORMIN 500 MG tablet Take 500 mg by mouth. omeprazole [address] capsule Take 20 mg by mouth daily. rizatriptan 10 MG tablet Take 10 mg by mouth. rizatriptan 5 MG tablet TAKE 1 TABLET BY MOUTH DAILY NEEDED FOR MIGRAINE HEADACHE, INSTRUCTIONS; MAY REPEAT DOSE EVERY 2 HOURS UP TO 3 (THREE) DOSES IN 24 HOURS venlafaxine 150 MG Cap SR 24HR capsule XR Take 150 mg by mouth daily. venlafaxine 37.5 MG Cap SR 24HR capsule XR Take 37.5 mg by mouth daily. venlafaxine 75 MG Cap SR 24HR capsule XR Take 75 mg by mouth daily. No current facility-administered medications for this visit. Past Medical History: Diagnosis Date Essential hypertension, benign Past Surgical History: Procedure Laterality Date APPENDECTOMY SECTION FOOT SURGERY BILATERAL FOOT GALL BLADDER SURGERY OTHER SURGICAL Shoulder scope TONSILLECTOMY Family History Problem Relation Age of Onset Breast Cancer Paternal Grandmother Social History Socioeconomic History Marital status: Spouse name: Not on file Number of children: Not on file Years of education: Not on file Highest education level: Not on file Occupational History Not on file Tobacco Use Smoking status: Former Smoker Smokeless tobacco: Never Used Substance and Sexual Activity Alcohol use: Not Currently Drug use: Never Sexual activity: Not on file Other Topics Concern Not on file Social History Narrative Not on file Social Determinants of Health Financial Resource Strain: Difficulty of Paying Living Expenses: Not on file Food Insecurity: Worried About Running Out of Food in the Last Year: Not on file Ran Out of Food in the Last Year: Not on file Transportation Needs: Lack of Transportation (Medical): Not on file Lack of Transportation (Non-Medical): Not on file Physical Activity: Days of Exercise per Week: Not on file Minutes of Exercise per Session: Not on file Stress: Feeling of Stress : Not on file Social Connections: Frequency of Communication with Friends and Family: Not on file Frequency of Social Gatherings with Friends and Family: Not on file Attends Confucianist Services: Not on file Active Member of Clubs or Organizations: Not on file Attends Club or Organization Meetings: Not on file Marital Status: Not on file Intimate Partner Violence: Fear of Current or Ex-Partner: Not on file Emotionally Abused: Not on file Physically Abused: Not on file Sexually Abused: Not on file Review of Systems Pertinent items are noted in HPI. No notes on file Objective: BP 163/85 Pulse 76 Wt 97.8 kg (215 lb 11.2 oz) SpO2 100% Smoking Status Former Smoker Patient with moderate amount of ptotic lower abdominal skin. No obvious hernias. Well-healed scar as well as gallbladder scar of her upper abdomen. Assessment: Patient would be a good candidate for panniculectomy Current nicotine dependence Plan: Patient is encouraged to stop smoking. Reviewed the implications of nicotine on wound healing and increased risk of infection. She is encouraged to follow-up when she has been successfully off of nicotine for 3 months. documented in this encounter [facility] Evaluation note Diagnosis Localized adiposity- Primary Atrophic skin Other specified hypertrophic and atrophic condition of skin Sultana-induced panniculitis Panniculitis, unspecified site [facility] Migraine without status migrainosus, not intractable, unspecified migraine type- Primary documented in this encounter [facility] Phone: evaluation note* Diagnosis Primary hypertension- Primary Unspecified essential hypertension documented in this encounter TRIS[facility] REDDY [facility] Phone: evaluation note* Diagnosis Bilateral leg pain- Primary Pain in limb Bilateral leg numbness Disturbance of skin sensation Bilateral hip pain Pain in joint, pelvic region and thigh [facility] Abdominal pain, epigastric- Primary Nausea and vomiting, unspecified vomiting type [facility]* Attachments The following attachments cannot be sent through Care Everywhere. * Migraine Headache ([place]) [facility]* Attachments The following attachments cannot be sent through Care Everywhere. * Hypertension: General Info ([place]) [facility]* Attachments The following attachments cannot be sent through Care Everywhere. * Nausea and Vomiting ([place]) * [facility]dominal [facility] ([place] * Attachments The following attachments cannot be sent through Care Everywhere. * Nausea and Vomiting ([place]) * Diarrhea ([place]) * Migraine Headache ([place]) documented in this encounter* Attachments The following attachments cannot be sent through Care Everywhere. * Migraine Headache: Prophylaxis: Deciding About ([place]) documented in this encounter* Attachments The following attachments cannot be sent through Care Everywhere. * Insect Stings and Bites ([place]) * Cellulitis ([place]) documented in this encounter Assessments Diagnosis Nausea vomiting and diarrhea- Primary Nausea with vomiting Migraine without aura and with status migrainosus, not intractable Migraine without aura, without mention of intractable migraine with status migrainosus Diagnosis Migraine without status migrainosus, not intractable, unspecified migraine type- Primary Diagnosis Impingement syndrome of shoulder, right Right shoulder pain, unspecified chronicity Diagnosis History of arthroscopy of right shoulder Diagnosis Right shoulder pain, unspecified chronicity Diagnosis Right shoulder pain, unspecified chronicity Diagnosis Multiple insect bites- Primary Other, multiple, and unspecified sites, insect bite, nonvenomous, without mention of infection Cellulitis of other specified site Advance Directives No Advanced Directives Records FoundDocuments on File Type Date Recorded 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 Expl anation Advance Directives and Living Will Power of Rn Bsn Documents on File Type Date Recorded 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 Journalist Expl anation Advance Directives and Living Will Power of Rn Bsn Documents on File Type Date Recorded 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 Journalist Expl anation ACP-Advance Directive ACP-Power of Rn Bsn Reason for Referral Status Reason Specialty Diagnoses / Procedures Referred By Contact Referred To Contact Pending Review Radiology Diagnoses Impingement syndrome of shoulder, right Right shoulder pain, unspecified chronicity Procedures MRI SHOULDER RIGHT WO CONTRAST Tony Nobles, DO [address] [place] [address] Specialty Diagnoses / Procedures Referred By Richard t Referred To Contact [facility] Diagnoses Bilateral leg pain Bilateral leg numbness Bilateral hip pain Procedures CONSULT TO PHYSICAL THERAPY PHYSICAL THERAPY EVALUATION HIGH COMPLEX 45 MINS Ellis Whitten APRN.PLUMBING ENGINEERING DRAFTSPERSON [address] [place] [address] [facility] [address] [place] [address] Referral ID Status Reason Start Date Expiration Date Visits Requested Visits Authorized [id number] Pending Review Auto-Generat ed Referral 10/25/2022 10/25/2023 1 1 Summary Purpose Family History No Family History Records FoundNo Family History Records FoundNo Family History Records FoundNo Family History Records Found Additional Source Comments Reason for Visit (unrecogniz ed section and content) Reason Comments Headache pt c/o pain in back of head; hx of migraines Nausea nausea/ vomiting sin ce 0400 Emesis states she has had 1 0-20 episodes of vomiting since 0400 Reason Comments Headache started at 0400. Gino en 800mg of Ibuprofen and her migraine medication with no relief Status Reason Specialty Diagnoses / Procedures Referre d By Contact Referred To Contact Closed Radiology Diagnoses Impingement syndrome of right shoulder Procedures HC MRI-UPPER EXT JNT WO Tony Gomez, DO [address] [place] [address] [facility] [address] [place] [address] Reason Comments Insect Bite pt has multiple bit es to her body, scattered. redness, raised areas with a small center that is itchy. Reason Comments New Patient Patient is intereste d in having a Panniculectomy. Patient states that she does have a rash in between her folds during the summer months. Reason Comments Headache pt has headache sinc e 5 or 6 pm. she states she does have a history of migraines, but also she got her second covid shot today. Reason Comments Hypertension Onset tonight; eye p ain; has a h/o HTN Reason Comments New Patient Hip and leg pain Reason Comments Abdominal Pain Abdominal pain to RU Q that started on Friday. Patient stated she has been having severe diarrhea since Friday. Emesis 2 times Friday that were bile. Patient unable to eat or drink. Ordered Prescriptions (unrec ognized section and content) Prescription Sig Dispensed Refills Start Date End Da te cephALEXin (KEFLEX) 500 MG capsule Take 1 capsule by mouth 4 times daily 28 capsule 0 08/20/2020 diphenhydrAMINE (BENADRYL) 25 MG capsule Take 1 capsule by mouth every 6 hours as needed for Itching 12 capsule 0 08/20/2020 08/23/2020 Prescription Sig Dispensed Refills Start Date End Da te hrayrzowol-VRDE-jdedmoag (FIORICET) 50-300-40 MG CAPS per capsule Take 1 capsule by mouth every 4 hours as needed for Headaches or Migraine 6 capsule 0 10/04/2020 Prescription Sig Dispensed Refills Start Date End Da te potassium chloride (KLOR-CON M) 20 MEQ extended release tablet Take 1 tablet by mouth daily 30 tablet 0 09/18/2022 Prescription Sig Dispensed Refills Start Date End Da te famotidine (PEPCID) 20 MG tablet Take 1 tablet by mouth 2 times daily 14 tablet 0 12/22/2022 Scheduled Active and Recently Administ ered Medications (unrecognized section and content) Medication Order 10/02/2020 10/03/2020 10/04/2020 dexamethasone (PF) (DECADRON) injection 10 mg (COMPLETED) 10 mg, Intravenous, ONCE, On Fri10/04/20 at 0145, For 1 dose 0158 (Given - Provid er: Noreen Green RN) diphenhydrAMINE (BENADRYL) injection 12.5 mg (COMPLETED) 12.5 mg, Intravenous, ONCE, On Fri10/04/20 at 0245, For 1 dose 0235 (Given - Provid er: Noreen Green RN) ketorolac (TORADOL) injection 30 mg (COMPLETED) 30 mg, Intravenous, ONCE, On Fri10/04/20 at 0145, For 1 dose, Do not administer for more than 5 days. 0158 (Given - Provid er: Noreen Green RN) metoclopramide (REGLAN) injection 10 mg (COMPLETED) 10 mg, Intravenous, ONCE, On Fri10/04/20 at 0145, For 1 dose 0158 (Given - Provid er: Noreen Green, DONNA) prochlorperazine (COMPAZINE) injection 10 mg (COMPLETED) 10 mg, Intravenous, ONCE, On Fri10/04/20 at 0245, For 1 dose 0235 (Given - Provid er: Noreen Green RN) Scheduled Medication Order 09/16/2022 09/17/2022 09/18/2022 cloNIDine (CATAPRES) tablet 0.2 mg (COMPLETED) 0.2 mg, Oral, ONCE, 1 dose, On Fri09/17/22 at 2315 2324 (Given - Provider: Keisha Reynolds, DONNA) potassium chloride (KLOR-CON) extended release tablet 40 mEq (COMPLETED) 40 mEq, Oral, ONCE, 1 dose, On Fri09/17/22 at 2345 2347 (Given - Provider: Keisha Reynolds, RN) Scheduled Medication Order 12/20/2022 12/21/2022 12/22/2022 sodium chloride 0.9 % bolus 1,000 mL (COMPLETED) 1,000 mL (11.6 mL/kg), IntraVENous, at 1,000 mL/hr, Administer over 1 Hours, ONCE, On Fri12/22/22 at 1715, For 1 dose 1711 (New Bag - Prov ider: Filemon Lewis RN)1811 (Stopped - Provider: Filemon Lewis RN) Care Teams (unrecognized sec tion and content) Laboratory Miller Relationship Specialty Start Date End Date Dioni Bacon [address] [place] [id number] PCP - General 03/26/12 Laboratory [facility] Relationship Specialty Start Date End Date Dioni Bacon DO [address] [place] [address] PCP - General 03/26/12 Source Comments (unrecognize d section and content) In the event this informatio n is protected by the Federal Confidentiality of Alcohol and Drug Abuse Patient Records regulations: The Federal rules restrict any use of the information to criminally investigate or prosecute any alcohol or drug abuse patient.[facility] INFORMATION SOURCE (unrecogn ized section and content) DATE CREATED AUTHOR 10/26/2022 [facility] DATE CREATED AUTHOR AUTHOR'S ORGANIZ ATION 02/03/2023 Reva Anthonyizabela son DATE CREATED AUTHOR AUTHOR'S ORGANIZ ATION 04/16/2023 [facility] DATE CREATED AUTHOR AUTHOR'S ORGANIZ ATION 04/16/2023 [facility] FOR RECORDS PERTAINING TO PATIENTS WHO ARE OR HAVE BEEN ENROLLED IN A CHEMICAL DEPENDENCY/SUBSTANCEABUSE PROGRAM, SOME INFORMATION MAY BE OMITTED. This clinical summary was aggregated from multiple sources. Caution should be exercised in using it in the provision of clinical care. This summary normalizes information from multiple sources, and as a consequence, information in this document may materially change the coding, format and clinical context of patient data. In addition, data may be omitted in some cases. CLINICAL DECISIONS SHOULD BE BASED ON THE PRIMARY CLINICAL RECORDS. [facility]. provides no warranty or guarantee of the accuracy or completeness of information in this document.
== END 2023-03-19 11:09 | disposition home or self-care (01) ==
LOC: PST 11:09
PROVIDERS: PCP Family Medicine; Visit Provider Urology
DX: Z01.812 Encounter for preprocedural laboratory examination (principal); N32.9 Bladder disorder, unspecified
CPT/HCPCS: 80048

== ENCOUNTER 2023-03-26 13:23 | Day surgery (SDC) | payer BC, SELFPAY ==
[2023-03-19 11:41] VITALS: BP 159/91; PULSE 76; RESP 16; TEMP 36.1; O2SAT 97; BMI 31.0
[2023-03-26 13:38] VITALS: BP 159/86; PULSE 77; RESP 18; TEMP 36.2; O2SAT 99; BMI 31.0
[2023-03-26] MEDS: LACTATED RINGER'S SOLUTION 1,000 ML 50 ML IV (14:01)
[2023-03-26] MEDS: CEFAZOLIN SODIUM/DEXTROSE,ISO 2 GM/50 ML PIGGYBACK IV (14:35)
[2023-03-26 15:33] VITALS: BP 166/106; PULSE 90; RESP 16; TEMP 36.8; O2SAT 98
[2023-03-26] MEDS: HYDROMORPHONE HCL 0.5 MG/0.5 ML SYRINGE IV ×3 (15:35→15:50)
[2023-03-26] MEDS: IOHEXOL 300 MG/ML - 50 ML BTL INJ (15:38)
--- NOTE | 2023-03-26 15:41 | P.URON_ITS ---
Urology Surgery Operative Note Operative Note Procedure Date: 03/26/23 Time Out Performed: yes Pre-op Diagnosis: Bladder tumor Post-op Diagnosis: same as pre-op Procedures performed: 1. Cystoscopy, transurethral resection of bladder tumor (< 2 cm) 2. Bilateral retrograde pyelograms Anesthesia: General-ET (Moira Fowler, KEVIN) Primary Surgeon: Jamia Brown Complications: none Estimated blood loss (mL): 0 Findings: -Small ~ 3 mmpapillary pedunculated bladder tumor on stalk, left trigone just superior to left UO, possible scant flat papillary carpeting medially. Area resected ~ 2 cm. - BL RPG no hydro, filling defects or extravasation of contrast Specimens: bladder tumor Drains: 16Fr rico catheter, 10 cc in balloon Indications for Procedures: 42 year old female found to have a small bladder tumor during cystoscopy after hysterectomy. After discussion of risks/benefits of management options in the office, she presents for the above procedures. CT AP with IV contrast 01/2023 without concerning urinary findings, however no delayed phase. Risks were discussed including but not limited to bleeding, pain, infection, damage to surrounding structures, need for additional procedures. Detailed description of Procedure: Prior to the operating room, informed consent was obtained for the procedures described above. The patient was then taken to the operating suite, transferred to the operating table and received the appropriate dose of preoperative IV antibiotics. Gen. anesthesia ETT was administered and the patient was positioned in the lithotomy position, sterilely prepped and draped in the usual sterile fashion for this procedure. A final timeout was performed confirming the patient's identity, procedure and all present were in agreement to proceed. I began by inserting a 22 Gib[place]tarian rigid cystoscope into the patient's bladder, urine was collected for cytology, and performed a thorough cystoscopy with 30 degree lens with the findings as above. The urethra appeared to be normal without evidence of strictures or abnormalities. Bilateral ureters were seen in orthotopic position effluxing urine. A 6Fr open ended catheter was inserted into left UO and contrast was injected for retrograde pyelogram with findings as above. This was repeated on the right. The cystoscope was removed and a 26 Gibraltarian resectoscope was inserted. Bipolar loop electrocautery was used to fully resect the tumor and surrouding area, taking care to obtain muscle in the specimen. Specimens were sent for pathology. Hemostasis was obtained with electrocautery. The bladder was drained and inspected. There was no evidence of any bleeding from the resection beds. A 16-Gibraltarian two way Rico catheter was inserted without difficulty, 10 cc in balloon. A bimanual exam was performed which demonstrated normal external genitalia and vagina. The bladder was mobile without palpable mass. The abdomen was soft and nondistended. The patient tolerated the procedure well without complication. Patient was extubated and sent to PACU for recovery. Plan: She will maintain the catheter for 2-3 days and follow-up in the office for removal and voiding trial. She will follow up in 1-2 weeks in the office for pathology review and the next steps.
[2023-03-26] MEDS: OXYBUTYNIN chloride 5 MG TABLET 10 MG PO (16:01)
[2023-03-26] MEDS: PHENAZOPYRIDINE 100 MG TABLET 200 MG PO (16:01)
[2023-03-26 16:20] VITALS: BP 162/71; PULSE 67; RESP 10; O2SAT 95
[2023-03-26 16:50] VITALS: BP 162/96; PULSE 82; RESP 16; O2SAT 95
== END 2023-03-26 16:50 | disposition home or self-care (01) ==
PROVIDERS: PCP Family Medicine; Visit Provider Urology
PROC: (CPT 52005; principal; 2023-03-26 14:40)
DX: N32.89 Other specified disorders of bladder (principal); E87.6 Hypokalemia; F17.210 Nicotine dependence, cigarettes, uncomplicated; F32.A Depression, unspecified; Z90.710 Acquired absence of both cervix and uterus; R35.0 Frequency of micturition; N39.3 Stress incontinence (female) (male); Z87.442 Personal history of urinary calculi; E88.819 Insulin resistance, unspecified; E61.1 Iron deficiency; G47.30 Sleep apnea, unspecified; E55.9 Vitamin D deficiency, unspecified; G25.81 Restless legs syndrome; M47.812 Spondylosis without myelopathy or radiculopathy, cervical region; Z90.49 Acquired absence of other specified parts of digestive tract; Z79.899 Other long term (current) drug therapy
CPT/HCPCS: 52005; 52234; 36415; 74420; 88112; 88305; J1170; J2704; Q9967